=== PATIENT | male | born 1935 | race Caucasian/White ===

== ENCOUNTER 2017-06-14 01:00 | Inpatient (IN) | payer OTHER ==
[2017-06-14] VITALS (21 sets, daily range): BP systolic 86–151; BP diastolic 37–70; PULSE 62–80; RESP 20–31; TEMP 98.4; Ht 167.6 cm; Wt 85.0 kg
[~2017-06-14] VITALS: Ht 167.6 cm; Wt 85.0 kg
[2017-06-14] MEDS ORDERED: CEFEPIME 2GM/50 ML (PMX) 50 ML IVPB STA (01:03)
[2017-06-14] MEDS ORDERED: SOD CHLORIDE 0.9% 1,000 ML IV STA ×2 (01:03)
[2017-06-14] MEDS ORDERED: ALBUTEROL 0.083% (NEB) 2.5 MG/3 ML AMP HHN STA (01:04)
[2017-06-14] MEDS ORDERED: ACETAMINOPHEN 650 MG SUPP PR ONE (01:30)
[2017-06-14] MEDS ORDERED: VANCOMYCIN 1 GM (PMX) 250 ML IVPB ONE (01:30)
[2017-06-14] MEDS ORDERED: IPRATROPIUM (NEB) 0.5 MG/2.5 ML AMP HHN ONE (01:30)
[2017-06-14 01:55] LABS: ABNORMAL IP MESSAGE 1; BASOPHILS % 0.1 % (0.0-2.0); EOSINOPHILS # 0.1 10^3/ul (0.0-0.5); EOSINOPHILS % 0.3 % (0.0-7.0); HEMATOCRIT 32.5 % (42.0-52.0); HEMOGLOBIN 9.6 g/dl (14.0-18.0); LYMPHOCYTES # 0.5 10^3/ul (0.8-2.9); LYMPHOCYTES % 2.7 % (15.0-51.0); MEAN CORPUSCULAR HEMOGLOBIN 26.3 pg (29.0-33.0); MEAN CORPUSCULAR HGB CONC 29.5 g/dl (32.0-37.0); MEAN PLATELET VOLUME 11.3 fl (7.4-10.4); MONOCYTE # 0.8 10^3/ul (0.3-0.9); MONOCYTES % 4.4 % (0.0-11.0); NEUTROPHIL # 16.2 10^3/ul (1.6-7.5); NEUTROPHILS % 91.5 % (39.0-77.0); PLATELET COUNT 177 10^3/UL (140-415); POSITIVE DIFF @See below; RED BLOOD COUNT 3.65 10^6/ul (4.70-6.10); RED CELL DISTRIBUTION WIDTH 16.1 % (11.5-14.5); WHITE BLOOD COUNT 17.7 10^3/ul (4.8-10.8)
[2017-06-14 02:22] LABS: ADD UMIC YES; UR ASCORBIC ACID NEGATIVE (NEGATIVE); UR BACTERIA FEW /HPF (NONE SEEN); UR BILIRUBIN (Dip) NEGATIVE (NEGATIVE); UR BLOOD (Dip) 2+ mg/dL (NEGATIVE); UR CLARITY SLIGHTLY CLOUDY (CLEAR); UR COLOR YELLOW (YELLOW); UR GLUCOSE (Dip) NEGATIVE (NEGATIVE); UR KETONES (Dip) NEGATIVE (NEGATIVE); UR LEUKOCYTE ESTERASE (Dip) 1+ Leu/ul (NEGATIVE); UR MUCUS FEW /HPF (NONE SEEN); UR NITRITE (Dip) NEGATIVE (NEGATIVE); UR RBC 34 /HPF (0-5); UR SPECIFIC GRAVITY (Dip) 1.015 (1.003-1.030); UR TOTAL PROTEIN (Dip) 1+ mg/dl (NEGATIVE); UR UROBILINOGEN (Dip) NEGATIVE (NEGATIVE)
[2017-06-14 02:23] LABS: ALBUMIN 3.2 g/dl (3.3-4.9); ALBUMIN/GLOBULIN RATIO 1.18; BILIRUBIN,INDIRECT 0.7 mg/dl (0-1.1); BILIRUBIN,TOTAL 0.7 mg/dl (0.2-1.3); CREATININE 0.95 mg/dl (0.61-1.24); POTASSIUM 5.3 mmol/L (3.5-5.1); TOTAL PROTEIN 5.9 g/dl (6.1-8.1)
--- NOTE | 2017-06-14 02:29 | RADRPT ---
PROCEDURE: XR Chest. CLINICAL INDICATION: Sepsis. TECHNIQUE: Single frontal chest x-ray. COMPARISON: None. FINDINGS: There is probable surgical defects in the right fifth and sixth ribs. There is complete opacificati on right hemithorax. There are multiple surgical clips right mid lung field. Mediastinum appears s lightly shifted to the right. There is patchy infiltrate in the left lung base. There is small lef t pleural effusion.. There is no pneumothorax. There are degenerative changes of the thoracic spin e.. IMPRESSION: Complete opacification right hemithorax with probable surgical defects in the right fifth and sixth ribs and multiple mid lung field clips compatible with prior pneumonectomy. Patchy left basilar inf iltrate. Small left pleural effusion. RPTAT: HMVK .Augie Wells MD, Date Time Electronically viewed and signed by .Augie Wells MD, on 06/14/2017 02:29 .K/
[2017-06-14 02:40] LABS: AADO2 Arterial 550.8 mmHg (7.0-24.0); Allen Test ACCEPTAB; Arterial Base Excess 2.8 mmol/L (-3.0-3); Arterial COHb 0.3 % (0.0-3.0); Arterial Fraction of Oxyhgb 95.1 % (93.0-99.0); Arterial HCO3 30.4 mmol/L (22.0-26.0); Arterial MetHb 0.7 % (0.0-1.5); Arterial Total Hemglobin 10.3 g/dl (12.0-18.0); Blood Gas IEPAP 15/5; MODE MASK - BIPAP
[2017-06-14] MEDS: SOD CHLORIDE 0.9% 1,000 ML IV SCH ×4 (02:52→20:27)
[2017-06-14] MEDS ORDERED: ONDANSETRON 4 MG INJ IV PRN (03:00)
[2017-06-14] MEDS ORDERED: ALBUTEROL/IPRATROPIUM (NEB) 3 ML AMP NEB PRN (03:00)
[2017-06-14] MEDS ORDERED: ACETAMINOPHEN 325 MG TAB PO PRN (03:00)
[2017-06-14 03:02] LABS: INR 1.09; PARTIAL THROMBOPLASTIN TIME 28.1 Sec (25.0-35.0); PROTIME 14.1 Sec (12.2-14.2); PT RATIO 1.1
[2017-06-14 03:05] LABS: TROPONIN-I 0.571 ng/ml (0.00-0.12)
[2017-06-14] MEDS ORDERED: VANCOMYCIN IV PER PHARMACY XX SCH (03:30)
[2017-06-14] MEDS ORDERED: ASPIRIN 300 MG SUPP PR ONE (03:30)
--- NOTE | 2017-06-14 03:45 | HP ---
Date/Time of Note Date/Time of Note DATE: 06/14/17 TIME: 03:45 Assessment/Plan VTE Prophylaxis VTE Prophylaxis Intervention: heparin Assessment/Plan Chief Complaint/Hosp Course This is a 81-year-old male being admitted to the ICU floor for: #1 acute respiratory failure on BiPAP #2 Severe sepsis #3 NSTEMI type I versus type II #4 healthcare associated pneumonia #5 urinary tract #6 chronic kidney disease #7 history of COPD, #8 history of encephalopathy, #9 history of Parkinson's disease, #10 type 2 diabetes mellitus,, #11 peripheral vascular disease, #12 #12 BPH #13 hypertension #14 ambulatory dysfunction Plan: This patient will be admitted to the ICU for close monitoring. Patient will be maintained on BiPAP for acute respiratory failure and will check serial ABGs. He has been started on broad-spectrum antibiotics for sepsis secondary to underlying suspected healthcare pneumonia and uti. IV fluid hydration. Patient will be started also on heparin drip secondary to positive troponin as this may be an NSTEMI with concern for possible ischemia though this could be type 2 demand. Will obtain a 2D echocardiogram. Will get a cardiology consult. We will continue to trend troponins. Will put patient on insulin sliding scale. Will monitor kidney function and consult nephrology. Will resume patient's home medications as per the clinical course. Further treatment strategy will be implemented as per the clinical course Greater than 60 minutes of critical care time was spent on the care and management of this patient. Problems: HPI/ROS Admit Date/Time Admit Date/Time Hx of Present Illness Chief complaint shortness of breath Patient is a 81-year-old male who presents with shortness of breath. Please note the history and physical exam is limited secondary to the patient's shortness of breath. The patient came from a convalescent home. He had low oxygen saturations. He was brought in by ambulance. He was put on a nonrebreather by paramedics. He was hot to the touch. He does have recent pneumonia with sepsis. He is a [facility] patient. Upon my examination patient was on the BiPAP and he was awake but confused. I was able to get a partial patient history using the ED physician documentation as well as the documentation was provided in the patient's chart. We will need to obtain further medical history from the primary physician. Allergies: NKDA Medications: Aspirin Carbidopa levodopa Cetirizine Docusate Dulcolax Dulera Lasix Glipizide Humulin as needed sliding scale Hydralazine Isosorbide mononitrate Lisinopril Milk of josafat Carreon Terazosin Atorvastatin potassium chloride Fleet enema Flomax Atenolol ROS Subjective hx not possible: pt non-verbal (Currently on BiPAP, lethargic), pt critical PMH/Family/Social Past Medical History Pneumonia, COPD, encephalopathy, Parkinson's disease, type 2 diabetes mellitus, chronic kidney disease, chronic renal failure, peripheral vascular disease, BPH , hypertension, polyp: History of sepsis with septic shock, ambulatory dysfunction Past Surgical History Unable to obtain secondary to patient's medical condition Family History Significant Family History: other (Unable to obtain secondary to patient's medical condition) Social History Unable to obtain secondary to patient's medical condition Smoking Status: Former smoker Exam/Review of Systems Vital Signs Vitals Vital Signs Date Time Temp Pulse Resp B/P Pulse Ox O2 Delivery O2 Flow Rate FiO2 06/14/17 02:39 99.9 80 33 110/48 100 CPAP 06/14/17 01:45 100 06/14/17 01:22 15.0 Exam Exam General: Patient is lying in bed he is arousable but confused he is on BiPAP HEENT: Atraumatic, normocephalic. The pupils are equal, round and reactive. Neck: Supple Lungs: Absent right-sided lung sounds, left coarse breath sounds throughout lung field Heart: Normal S1-S2, Regular rhythm and rate. No overt murmurs appreciated on auscultation Abdomen: Soft , nontender, nondistended , bowel sounds are present. No guarding no rebound tenderness , Extremities: Trace edema of the bilateral lower extremities Neurologic: Patient is arousable, but confused currently on BiPAP, unable to do full neurological exam secondary to patient's medical condition. Additional Comments PROCEDURE: XR Chest. CLINICAL INDICATION: Sepsis. TECHNIQUE: Single frontal chest x-ray. COMPARISON: None. FINDINGS: There is probable surgical defects in the right fifth and sixth ribs. There is complete opacification right hemithorax. There are multiple surgical clips right mid lung field. Mediastinum appears slightly shifted to the right. There is patchy infiltrate in the left lung base. There is small left pleural effusion.. There is no pneumothorax. There are degenerative changes of the thoracic spine.. IMPRESSION: Complete opacification right hemithorax with probable surgical defects in the right fifth and sixth ribs and multiple mid lung field clips compatible with prior pneumonectomy. Patchy left basilar infiltrate. Small left pleural effusion. RPTAT: HMVK .Augie Wells MD, MD Date Time Electronically viewed and signed by .Augie Wells MD, MD on 06/14/2017 02:29 .K/ EKG : Rate/Rhythm: Regular rate and rhythm at a rate of 83 Intervals: Normal As per ED physician documentation Labs Result Diagram: 06/14/1711806/14/17118 Medications Medications Current Medications Sodium Chloride (NS) 1,000 ml @ 75 mls/hr [id number] IV ; Start 06/14/17 at 02:52 ; Status UNV Ondansetron HCl (Zofran Inj) 4 mg Q6H PRN IV NAUSEA AND/OR VOMITING; Start at 03:00; Status UNV Acetaminophen (Tylenol Tab) 650 mg Q6H PRN PO PAIN LEVEL 1-3 OR FEVER; Start at 03:00; Status UNV Pantoprazole 40 mg 40 mg DAILY@06 IV ; Start 06/14/17 at 06:00; Status UNV Cefepime HCl 50 ml @ 100 mls/hr Q8 IVPB ; Start 06/14/17 at 06:00; Status UNV Levofloxacin/ Dextrose (Levaquin 750 Mg/ D5W 150 ml (Pmx)) 150 ml @ 100 mls/hr Q24H IVPB ; Start 06/14/17 at 03:30; Status UNV EDITH CARLSON Jun 14, 2017 03:45
--- NOTE | 2017-06-14 04:03 | ERA ---
ER Documentation Chief Complaint Date/Time DATE: 06/14/17 TIME: 04:02 Chief Complaint LAURENT RA81 from [facility],low O2 sat, 88% on NRM HPI Patient is a 81-year-old male who presents with shortness of breath. Please note the history and physical exam is limited secondary to the patient's shortness of breath. The patient came from a convalescent home. He had low oxygen saturations. He was brought in by ambulance. He was put on a nonrebreather by paramedics. He was hot to the touch. He does have recent pneumonia with sepsis. He is a [facility] patient. Upon review of old medical records this is the patient's first visit to the emergency department. ROS All systems reviewed and are negative except as per history of present illness. Allergies Allergies: Coded Allergies: No Known Allergy (Unverified , 06/14/17) PMhx/Soc History of Surgery: Yes (R lung lobectomy ) Anesthesia Reaction: No Hx Respiratory Disorders: Yes (PNA, COPD, Lung CA) Hx Miscellaneous Medical Probl: Yes (Parkinson's, DM II, Encephalopathy, BPH, PVD, colon polyp) Hx Alcohol Use: No Hx Substance Use: No Hx Tobacco Use: Yes Smoking Status: Former smoker FmHx Unable to obtain Physical Exam Vitals Vital Signs Date Time Temp Pulse Resp B/P Pulse Ox O2 Delivery O2 Flow Rate FiO2 06/14/17 02:39 99.9 80 33 110/48 100 CPAP 06/14/17 01:45 85 93 100 06/14/17 01:22 88 34 95 Non Rebreather Mask 15.0 06/14/17 01:16 Non Rebreather 15 06/14/17 01:04 102.0 85 33 127/49 97 Physical Exam Const: Severe distress Head: Atraumatic Eyes: Normal Conjunctiva ENT: Normal External Ears, Nose and Mouth. Neck: Full range of motion..~ No meningismus. Resp: Absent right-sided breath sounds with rhonchorous left-sided breath sounds Cardio: Regular rate and rhythm, no murmurs Abd: Soft, non tender, non distended. Normal bowel sounds Skin: No petechiae or rashes Back: No midline or flank tenderness Ext: No cyanosis, or edema Neur: Awake but confused Result Diagram: 06/14/1711806/14/17118 Results 24 hrs Laboratory Tests Test 06/14/17 01:19 06/14/17 01:52 06/14/17 02:03 White Blood Count 17.710^3/ul Red Blood Count 3.6510^6/ul Hemoglobin 9.6g/dl Hematocrit 32.5% Mean Corpuscular Volume 89.0fl Mean Corpuscular Hemoglobin 26.3pg Mean Corpuscular Hemoglobin Concent 29.5g/dl Red Cell Distribution Width 16.1% Platelet Count 48415^3/UL Mean Platelet Volume 11.3fl Neutrophils % 91.5% Lymphocytes % 2.7% Monocytes % 4.4% Eosinophils % 0.3% Basophils % 0.1% Nucleated Red Blood Cells % 0.0/100WBC Neutrophils # 16.210^3/ul Lymphocytes # 0.510^3/ul Monocytes # 0.810^3/ul Eosinophils # 0.110^3/ul Basophils # 0.010^3/ul Nucleated Red Blood Cells # 0.010^3/ul Prothrombin Time 14.1Sec Prothrombin Time Ratio 1.1 INR International Normalized Ratio 1.09 Activated Partial Thromboplast Time 28.1Sec Sodium Level 144mmol/L Potassium Level 5.3mmol/L Chloride Level 95mmol/L Carbon Dioxide Level 40mmol/L Anion Gap 14 Blood Urea Nitrogen 34mg/dl Creatinine 0.95mg/dl Glucose Level 159mg/dl Lactic Acid Level 0.8mmol/L Calcium Level 9.0mg/dl Total Bilirubin 0.7mg/dl Direct Bilirubin 0.00mg/dl Indirect Bilirubin 0.7mg/dl Aspartate Amino Transf (AST/SGOT) 16IU/L Alanine Aminotransferase (ALT/SGPT) 25IU/L Alkaline Phosphatase 57IU/L Troponin I 0.571ng/ml Total Protein 5.9g/dl Albumin 3.2g/dl Globulin 2.70g/dl Albumin/Globulin Ratio 1.18 Urine Color YELLOW Urine Clarity SLIGHTLY CLOUDY Urine pH 5.0 Urine Specific [place] 1.015 Urine Ketones NEGATIVEmg/dL Urine Nitrite NEGATIVEmg/dL Urine Bilirubin NEGATIVEmg/dL Urine Urobilinogen NEGATIVEmg/dL Urine Leukocyte Esterase 1+Kristian/ul Urine Microscopic RBC 34/HPF Urine Microscopic WBC 15/HPF Urine Bacteria FEW/HPF Urine Mucus FEW/HPF Urine Hemoglobin 2+mg/dL Urine Glucose NEGATIVEmg/dL Urine Total Protein 1+mg/dl Blood Gas Specimen Source Blood arterial Arterial Blood Date Drawn 06/14/2017 2:27:06 AM Arterial Blood pH (Temp corrected) 7.299 Arterial Blood pCO2 (Temp correct) 63.3mmhg Arterial Blood pO2 (Temp corrected) 98.9mmHG Arterial Blood HCO3 30.4mmol/L Arterial Blood Base Excess 2.8mmol/L Arterial Blood Oxygen Saturation 96.1mmHG Slim Test ACCEPTAB Arterial Blood Gas Puncture Site Right Radial Arterial Blood Carboxyhemoglobin 0.3% Arterial Blood Methemoglobin 0.7% Blood Gas A-a O2 Differential 550.8mmHg Oxyhemoglobin Percent 95.1% Total Hemoglobin 10.3g/dl Blood Gas Temperature 37.0C Blood Gas Respiration Rate 14.0 Blood Gas Actual Respiration Rate 30 Blood Gas Modality MASK - BIPAP FiO2 100.0% Blood Gas Inspiratory Time 0.8 Blood Gas IPAP/EPAP Ratio 15/5 Blood Gas Critical Value Read Back Ros SALDANA MD Blood Gas Notified Whom AA Blood Gas Notified Time 06/14/2017 2:40:10 AM Current Medications Medications (Trade) Dose Ordered Sig/Shad Route PRN Reason Start Time Stop Time Status Last Admin Dose Admin Cefepime HCl 50 ml @ 100 mls/hr ONCE STAT IVPB 06/14/17 01:03 06/14/17 01:35 DC 06/14/17 01:45 Vancomycin HCl 250 ml @ 125 mls/hr ONCE ONCE IVPB 06/14/17 01:30 06/14/17 03:29 DC 06/14/17 02:27 Sodium Chloride 1,000 ml @ 1,000 mls/hr Q1H STAT IV 06/14/17 01:03 06/14/17 02:02 DC 06/14/17 01:03 Sodium Chloride (NS) 1,000 ml @ 1,000 mls/hr Q1H STAT IV 06/14/17 01:03 06/14/17 02:02 DC 06/14/17 01:03 Acetaminophen (Tylenol Supp) 650 mg ONCE ONCE HI 06/14/17 01:30 06/14/17 01:31 DC 06/14/17 02:28 Albuterol (Proventil 0.083% (Neb)) 5 mg ONCE STAT HHN 06/14/17 01:04 06/14/17 01:05 DC 06/14/17 01:22 Ipratropium [place] 0.5 mg 0.5 mg ONCE ONCE HHN 06/14/17 01:30 06/14/17 01:31 DC 06/14/17 01:22 Sodium Chloride (NS) 1,000 ml @ 75 mls/hr [id number] IV 06/14/17 02:52 UNV Ondansetron HCl (Zofran Inj) 4 mg Q6H PRN IV NAUSEA AND/OR VOMITING 06/14/17 03:00 UNV Albuterol/ Ipratropium (Duoneb) 3 ml Q4H RESP THERAPY PRN NEB SHORTNESS OF BREATH 06/14/17 03:00 UNV Acetaminophen (Tylenol Tab) 650 mg Q6H PRN PO PAIN LEVEL 1-3 OR FEVER 06/14/17 03:00 UNV Pantoprazole (Protonix Iv) 40 mg DAILY@06 IV 06/14/17 06:00 UNV Vancomycin HCl VANCOMYCIN PER PHARMACY PER PROTOCOL XX 06/14/17 03:30 UNV Cefepime HCl 50 ml @ 100 mls/hr Q8 IVPB 06/14/17 06:00 UNV Levofloxacin/ Dextrose (Levaquin 750 Mg/ D5W 150 ml (Pmx)) 150 ml @ 100 mls/hr Q24H IVPB 06/14/17 03:30 UNV Aspirin (Aspirin) 300 mg ONCE ONCE HI 06/14/17 03:30 06/14/17 03:31 DC Procedures/MDM EKG read by me: Rate/Rhythm: Regular rate and rhythm at a rate of 83 Intervals: Normal Impression: No evidence of ischemia or arrhythmia Chest X-ray 1V Interpreted by me: Soft Tissue: No acute abnormalities Bones: No acute abnormalities Mediastinum/Cardiac Silhouette/Lungs: Right-sided opacification and previous surgery with left-sided pneumonia Admit MDM: Patient's infectious symptoms have not stabilized and the patient is at risk of rapid decompensation. The patient will be admitted for careful hydration, antibiotic therapy, and infectious source control. Severe Sepsis criteria: Infectious source: Pneumonia End organ damage indicated by: Respiratory failure Sepsis Management: Time of recognition of sepsis: Upon arrival Within 3 hours of recognition: Blood cultures x 2 before broad-spectrum antibiotics: Yes 30 ml/kg NS bolus Completed Initial lactate 0.8 Repeat lactate pending Time of recognition of septic shock: No septic shock Septic Shock Assessment: Any lactic acid > 4.0 No Persistent hypotension (SBP < 90 or 40 mmHg drop, MAP < 65) despite 30 mL/kg IV fluid bolus No Volume Re-assessment for Septic Shock (post 30 ml/kg bolus): No septic shock at this time Persistent Hypotension Treatment: Comfort care No Central line Not Required Vasopressor started Not required I considered further perfusion assessment with CVP measurement, SCVO2, bedside ultrasound volume assessment, passive leg raise, trial of further fluid bolus. And proceeded with 30 ml/kg fluid bolus of NSS, broad spectrum antibiotics, and admission. The patient was given aspirin per rectum for a positive troponin. This is likely from sepsis. Accepting Care Team Current data and ongoing care discussed. Admitting Physician: Dr. Falcon from the panel team to the ICU Core Extruder(s): None Outstanding Data: Culture results and repeat lactic acid Critical Care: Critical care time 35 minutes excluding all billable procedures Emergent fluid management while maintaining close respiratory support. Provision of immediate and broad-spectrum antibiotic therapy. Simultaneous assessment for possible sources in order to direct targeted therapy. Consideration for invasive and chemical support to prevent cardiopulmonary collapse. Departure Diagnosis: Primary Impression: Severe sepsis Additional Impressions: Shortness of breath Respiratory failure Qualified Code: J96.01 - Acute respiratory failure with hypoxia and hypercapnia Pneumonia Qualified Code: J18.9 - Pneumonia due to infectious organism, unspecified laterality, unspecified part of lung NSTEMI (non-ST elevated myocardial infarction) Condition: Critical ARCHIE SALDANA MD Jun 14, 2017 04:03
[2017-06-14] MEDS: LEVOFLOXACIN 750MG/D5W (PMX) 150 ML IVPB SCH (04:26)
[2017-06-14 04:40] LABS: AADO2 Arterial 539.5 mmHg (7.0-24.0); Arterial Base Excess 5.5 mmol/L (-3.0-3); Arterial COHb 0.3 % (0.0-3.0); Arterial Fraction of Oxyhgb 95.8 % (93.0-99.0); Arterial HCO3 33.7 mmol/L (22.0-26.0); Arterial MetHb 0.6 % (0.0-1.5); Arterial Total Hemglobin 10.8 g/dl (12.0-18.0); Blood Gas IEPAP 20/5; MODE MASK - BIPAP
[2017-06-14 06:11] LABS: ALBUMIN/GLOBULIN RATIO 1.2; BILIRUBIN,INDIRECT 0.7 mg/dl (0-1.1); BILIRUBIN,TOTAL 0.7 mg/dl (0.2-1.3); CALCIUM 8.4 mg/dl (8.4-10.2); MAGNESIUM 2.2 mg/dl (1.7-2.5); POTASSIUM 5.5 mmol/L (3.5-5.1); TOTAL PROTEIN 5.5 g/dl (6.1-8.1)
[2017-06-14] MEDS: PANTOPRAZOLE 40 MG INJ IV SCH (06:30)
[2017-06-14] MEDS ORDERED: HEPARIN 1000 UNITS/ML 10 ML INJ IV PRN (07:30)
[2017-06-14] MEDS ORDERED: HEPARIN 25000 UNITS/250 ML 250 ML IV SCH (07:30)
[2017-06-14] MEDS ORDERED: HEPARIN 1000 UNITS/ML 10 ML INJ IV ONE (07:30)
[2017-06-14 07:56] LABS: AADO2 Arterial 500.1 mmHg (7.0-24.0); Allen Test ACCEPTAB; Arterial Base Excess 2.3 mmol/L (-3.0-3); Arterial COHb 0.3 % (0.0-3.0); Arterial Fraction of Oxyhgb 97.4 % (93.0-99.0); Arterial HCO3 29.5 mmol/L (22.0-26.0); Arterial MetHb 0.7 % (0.0-1.5); Arterial Total Hemglobin 10.5 g/dl (12.0-18.0); Blood Gas IEPAP 20/5; Blood Gas PS 15; MODE MASK - BIPAP
[2017-06-14] MEDS: CEFEPIME 2GM/50 ML (PMX) 50 ML IVPB SCH ×3 (08:24→23:29)
[2017-06-14 09:10] LABS: ABNORMAL IP MESSAGE 1; HEMATOCRIT 31.3 % (42.0-52.0); HEMOGLOBIN 9.5 g/dl (14.0-18.0); MEAN CORPUSCULAR HEMOGLOBIN 26.9 pg (29.0-33.0); MEAN CORPUSCULAR HGB CONC 30.4 g/dl (32.0-37.0); MEAN CORPUSCULAR VOLUME 88.7 fl (82.0-101.0); MEAN PLATELET VOLUME 12.2 fl (7.4-10.4); POSITIVE DIFF @See below; RED BLOOD COUNT 3.53 10^6/ul (4.70-6.10); WHITE BLOOD COUNT 21.3 10^3/ul (4.8-10.8)
[2017-06-14 09:12] LABS: PLATELET COUNT 105 10^3/UL (140-415)
[2017-06-14 09:16] LABS: INR 1.18; PROTIME 15.1 Sec (12.2-14.2); PT RATIO 1.2
[2017-06-14 09:17] LABS: PARTIAL THROMBOPLASTIN TIME 26.2 Sec (25.0-35.0)
[2017-06-14 10:12] LABS: ANISOCYTOSIS 1+ (0-0); MICROCYTOSIS 1+ (0-0); MONOCYTES % (M) 6 % (0-11); PLATELET ESTIMATE DECREASED; POIKILOCYTOSIS 3+ (0-0); POLYCHROMASIA 3+ (0-0)
--- NOTE | 2017-06-14 10:13 | RADRPT ---
PROCEDURE: CT Chest without contrast. CLINICAL INDICATION: Abnormal chest x-ray. TECHNIQUE: Volumetrically acquired images of the thorax without intravenous contrast were reformat kera in the axial, sagittal, and coronal planes. Radiation dose: CTDIvol (mGy) = 14.4; total DLP mGy-cm = 577. One or more of the following radiation dose techniques were used: -Automated exposure control. -Adjust of the mA and/or kV according to patient size. -Use of iterative reconstruction technique. COMPARISON: None. FINDINGS: There is complete consolidation of the right lung with air bronchograms, which is poorly evaluated w ithout intravenous contrast. There are multiple enlarged multi-compartmental mediastinal lymph nodes. There are postsurgical changes identified in the right hilar region, likely sequelae of prior lobect marvel/lung resection. There is associated generalized volume loss of the right hemithorax with elevat ion of the right hemidiaphragm. There is an ill-defined soft tissue mass in the right supraclavicular region, measuring approximatel y 4.4 cm in craniocaudal length. Expiratory images demonstrate air trapping identified in the left upper lower lobes. There is also a concomitant interlobular septal thickening, consistent with hydrostatic interstitial edema. There are linear bands of scarring and/or atelectasis identified in the left upper and lower lobes. There are bilateral calcified pleural plaques with pleural thickening. No pleural effusions. There is cardiomegaly without pericardial effusion. 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 There are three-vessel coronary calcifications. Layering stones are noted within the gallbladder. IMPRESSION: Large consolidation and/or mass occupying the right hemithorax that is poorly evaluated without intr avenous contrast. Underlying malignancy is suspected given the prominent multi compartmental medias tinal lymphadenopathy and large ill-defined supraclavicular maurizio mass. The contralateral, non-consolidated left lung demonstrates obliterative air trapping, consistent wit h nonspecific large and small airways disease. There is also interlobular septal thickening consist ent with hydrostatic interstitial edema with prominent bands of scarring and/or atelectasis. Cardiomegaly with advanced cardiovascular calcifications. Bilateral pleural thickening with calcified pleural plaque, which may reflect prior asbestos exposur e. RPTAT: EE .Jonathan Rojas MD, MD Date Time Electronically viewed and signed by .Jonathan Rojas MD, MD on 06/14/2017 10:18 .C/
[2017-06-14] MEDS ORDERED: HYDR-3671 PO (10:47)
[2017-06-14] MEDS ORDERED: MOME13HF INHALATION (10:47)
[2017-06-14] MEDS ORDERED: ATOR40TA68 PO (10:48)
[2017-06-14] MEDS ORDERED: CARB1TAB42 PO (10:48)
[2017-06-14] MEDS ORDERED: LISI40TA9 PO (10:48)
[2017-06-14] MEDS ORDERED: FURO40TA4 PO (10:50)
[2017-06-14] MEDS ORDERED: ATEN50TA PO (10:53)
[2017-06-14] MEDS ORDERED: ISOS30TA5 PO (10:54)
[2017-06-14] MEDS ORDERED: POTA8CAP PO (10:54)
[2017-06-14] MEDS ORDERED: GLIP5TAB13 PO (10:54)
[2017-06-14] MEDS ORDERED: TERA10CA42 PO (10:55)
[2017-06-14 11:54] LABS: ALBUMIN/GLOBULIN RATIO 1.25; BILIRUBIN,INDIRECT 0.9 mg/dl (0-1.1); BILIRUBIN,TOTAL 0.9 mg/dl (0.2-1.3); CREATININE 0.85 mg/dl (0.61-1.24); POTASSIUM 5.8 mmol/L (3.5-5.1); TOTAL PROTEIN 5.4 g/dl (6.1-8.1)
--- NOTE | 2017-06-14 13:12 | CONS ---
Date/Time of Note Date/Time of Note DATE: 06/14/17 TIME: 13:05 Assessment/Plan Assessment/Plan Additional Assessment/Plan Respiratory failure Sepsis Possible pneumonia with lung mass COPD on oxygen Encephalopathy -Patient with mildly elevated first set of troponins. Would follow serial cardiac enzymes, check echocardiogram, telemetry monitoring, aspirin and statin therapy if no contraindication. Consultation Date/Type/Reason Admit Date/Time Type of Consultation: cv Reason for Consultation Shortness of breath and elevated troponin Hx of Present Illness This is an 81-year-old male with past medical history of COPD on oxygen, lung surgery over 20 years ago, hypertension who was admitted to [facility] approximately 2-3 weeks ago as per the son at bedside. At that time, patient with severe pneumonia requiring intubation. Prior to this, patient was ambulating with oxygen supplementation and was coherent. He was treated and extubated and transferred to rehab. As per the son, over the past few days, patient with increased fatigue, fevers and chills, cough and worsening shortness of breath. Symptoms worsened yesterday and was brought to the emergency room. Patient unable to give history at the current time and is mention history obtained from the patient son, medical chart and transfer records. 12 point review of systems performed with all pertinent positives and negatives mentioned above Past Medical History COPD Hypertension Past Surgical History Lung surgery Family History Significant Family History: no pertinent family hx Social History Smoking Status: Former smoker Other Social History From rehab facility Exam/Review of Systems Vital Signs Vitals Vital Signs Date Time Temp Pulse Resp B/P Pulse Ox O2 Delivery O2 Flow Rate FiO2 06/14/17 11:30 98.4 61 16 116/44 95 CPAP 15.0 06/14/17 11:29 35 Exam On BiPAP, appears dyspneic, not responding to verbal stimuli Head: normocephalic Respiratory: other (Coarse breath sounds, decreased breath sounds right mid lung base, no wheezing) Cardiovascular: other (S1-S2 heard), regular rate and rhythm Gastrointestinal: bowel sounds, non-tender, other (No grimacing with palpation) , soft Extremities: edema Results Result Diagram: 06/14/17 0818 06/14/17 1048 Results 24 hrs Laboratory Tests Test 06/14/17 01:19 06/14/17 01:52 06/14/17 02:03 06/14/17 04:16 White Blood Count 17.7 H Red Blood Count 3.65 L Hemoglobin 9.6 L Hematocrit 32.5 L Mean Corpuscular Volume 89.0 Mean Corpuscular Hemoglobin 26.3 L Mean Corpuscular Hemoglobin Concent 29.5 L Red Cell Distribution Width 16.1 H Platelet Count 177 Mean Platelet Volume 11.3 H Neutrophils % 91.5 H Lymphocytes % 2.7 L Monocytes % 4.4 Eosinophils % 0.3 Basophils % 0.1 Nucleated Red Blood Cells % 0.0 Neutrophils # 16.2 H Lymphocytes # 0.5 L Monocytes # 0.8 Eosinophils # 0.1 Basophils # 0.0 Nucleated Red Blood Cells # 0.0 Prothrombin Time 14.1 Prothrombin Time Ratio 1.1 INR International Normalized Ratio 1.09 Activated Partial Thromboplast Time 28.1 Sodium Level 144 Potassium Level 5.3 H Chloride Level 95 L Carbon Dioxide Level 40 H Anion Gap 14 Blood Urea Nitrogen 34 H Creatinine 0.95 Glucose Level 159 Lactic Acid Level 0.8 Calcium Level 9.0 Total Bilirubin 0.7 Direct Bilirubin 0.00 Indirect Bilirubin 0.7 Aspartate Amino Transf (AST/SGOT) 16 Alanine Aminotransferase (ALT/SGPT) 25 Alkaline Phosphatase 57 Troponin I 0.571 *H Total Protein 5.9 L Albumin 3.2 L Globulin 2.70 Albumin/Globulin Ratio 1.18 Urine Color YELLOW Urine Clarity SLIGHTLY CLOUDY A Urine pH 5.0 Urine Specific [place] 1.015 Urine Ketones NEGATIVE Urine Nitrite NEGATIVE Urine Bilirubin NEGATIVE Urine Urobilinogen NEGATIVE Urine Leukocyte Esterase 1+ H Urine Microscopic RBC 34 H Urine Microscopic WBC 15 H Urine Bacteria FEW A Urine Mucus FEW A Urine Hemoglobin 2+ H Urine Glucose NEGATIVE Urine Total Protein 1+ H Blood Gas Specimen Source Blood arterial Blood arterial Arterial Blood Date Drawn 06/14/2017 2:27:06 AM 06/14/2017 4:27:38 AM Arterial Blood pH (Temp corrected) 7.299 *L 7.297 *L Arterial Blood pCO2 (Temp correct) 63.3 H 70.5 H Arterial Blood pO2 (Temp corrected) 98.9 H 103.0 H Arterial Blood HCO3 30.4 H 33.7 H Arterial Blood Base Excess 2.8 5.5 H Arterial Blood Oxygen Saturation 96.1 96.7 Slim Test ACCEPTAB N/A Arterial Blood Gas Puncture Site Right Radial Right Brachial Arterial Blood Carboxyhemoglobin 0.3 0.3 Arterial Blood Methemoglobin 0.7 0.6 Blood Gas A-a O2 Differential 550.8 H 539.5 H Oxyhemoglobin Percent 95.1 95.8 Total Hemoglobin 10.3 L 10.8 L Blood Gas Temperature 37.0 37.0 Blood Gas Respiration Rate 14.0 20.0 Blood Gas Actual Respiration Rate 30 26 Blood Gas Modality MASK - BIPAP MASK - BIPAP FiO2 100.0 100.0 Blood Gas Inspiratory Time 0.8 0.8 Blood Gas IPAP/EPAP Ratio 15/ 20 Blood Gas Critical Value Read Back Ros SALDANA MD, B MD Blood Gas Notified Whom AA AA Blood Gas Notified Time 06/14/2017 2:40:10 AM 06/14/2017 4:40:32 AM Test 06/14/17 04:42 06/14/17 07:44 06/14/17 08:18 06/14/17 10:48 Sodium Level 145 H 143 Potassium Level 5.5 H 5.8 H Chloride Level 99 101 Carbon Dioxide Level 36 H 32 H Anion Gap 16 16 Blood Urea Nitrogen 32 H 31 H Creatinine 1.00 0.85 Glucose Level 202 224 H Lactic Acid Level 1.5 1.4 1.6 Calcium Level 8.4 8.0 L Phosphorus Level 5.0 H Magnesium Level 2.2 Total Bilirubin 0.7 0.9 Direct Bilirubin 0.00 0.00 Indirect Bilirubin 0.7 0.9 Aspartate Amino Transf (AST/SGOT) 16 18 Alanine Aminotransferase (ALT/SGPT) 26 31 Alkaline Phosphatase 51 44 Lactate Dehydrogenase 572 Total Protein 5.5 L 5.4 L Albumin 3.0 L 3.0 L Globulin 2.50 2.40 Albumin/Globulin Ratio 1.20 1.25 Blood Gas Specimen Source Blood arterial Arterial Blood Date Drawn 06/14/2017 7:45:35 AM Arterial Blood pH (Temp corrected) 7.313 L Arterial Blood pCO2 (Temp correct) 59.5 H Arterial Blood pO2 (Temp corrected) 153.4 H Arterial Blood HCO3 29.5 H Arterial Blood Base Excess 2.3 Arterial Blood Oxygen Saturation 98.4 Slim Test ACCEPTAB Arterial Blood Gas Puncture Site Right Radial Arterial Blood Carboxyhemoglobin 0.3 Arterial Blood Methemoglobin 0.7 Blood Gas A-a O2 Differential 500.1 H Oxyhemoglobin Percent 97.4 Total Hemoglobin 10.5 L Blood Gas Temperature 37.0 Blood Gas Respiration Rate 30.0 Blood Gas Actual Respiration Rate 33 Blood Gas Modality MASK - BIPAP FiO2 100.0 Blood Gas Pressure Support 15 Blood Gas IPAP/EPAP Ratio 20/5 Blood Gas Notified Whom Denny Blood Gas Notified Time 06/14/2017 7:56:19 AM White Blood Count 21.3 #H Red Blood Count 3.53 L Hemoglobin 9.5 L Hematocrit 31.3 L Mean Corpuscular Volume 88.7 Mean Corpuscular Hemoglobin 26.9 L Mean Corpuscular Hemoglobin Concent 30.4 L Red Cell Distribution Width 16.0 H Platelet Count 105 #L Mean Platelet Volume 12.2 H Neutrophils % Segmented Neutrophils % (Manual) 82 H Band Neutrophils % (Manual) 5 H Lymphocytes % Lymphocytes % (Manual) 7 L Monocytes % Monocytes % (Manual) 6 Eosinophils % Basophils % Nucleated Red Blood Cells % 0.0 Neutrophils # Neutrophils # (Manual) 17.7 H Band Neutrophils # 1.0 H Absolute Lymphocytes (Manual) 1.4 Lymphocytes # Monocytes # Absolute Monocytes (Manual) 1.2 H Eosinophils # Basophils # Nucleated Red Blood Cells # Smudge Cells % 1 H Platelet Estimate DECREASED Polychromasia 3+ Poikilocytosis 3+ Anisocytosis 1+ Microcytosis 1+ Prothrombin Time 15.1 H Prothrombin Time Ratio 1.2 INR International Normalized Ratio 1.18 Activated Partial Thromboplast Time 26.2 Medications Medications Current Medications Sodium Chloride (NS) 1,000 ml @ 75 mls/hr [id number] IV Last administered on 06/14 02:52; Admin Dose 75 MLS/HR; Start 06/14/17 at 02:52 Ondansetron HCl (Zofran Inj) 4 mg Q6H PRN IV NAUSEA AND/OR VOMITING; Start at 03:00 Acetaminophen (Tylenol Tab) 650 mg Q6H PRN PO PAIN LEVEL 1-3 OR FEVER; Start at 03:00 Pantoprazole 40 mg 40 mg DAILY@06 IV Last administered on 06/14/17 06:30; Admin Dose 40 MG; Start 06/14/17 at 06:00 Cefepime HCl 50 ml @ 100 mls/hr Q8 IVPB Last administered on 06/14/17 08:24; Admin Dose 100 MLS/HR; Start 06/14/17 at 07:30 Levofloxacin/ Dextrose 150 ml @ 100 mls/hr Q24H IVPB Last administered on 06/14t 04:26; Admin Dose 100 MLS/HR; Start 06/14/17 at 03:30 Sodium Chloride 1,000 ml @ 80 mls/hr [id number] IV ; Start 06/14/17 at 09:00 Vancomycin HCl/ Sodium Chloride (Vancocin/NS) 250 ml @ 83.333 mls/ hr Q24H IVPB ; Start 06/14/17 at 20:00 Procedures Procedures ECG demonstrates sinus rhythm 81 bpm, inferior and septal Q waves, nonspecific ST abnormalities Augie Encarnacion DO Jun 14, 2017 13:12
[2017-06-14 13:53] LABS: CK-MB 2.4 ng/ml (0.0-2.4); TROPONIN-I 0.323 ng/ml (0.00-0.12)
--- NOTE | 2017-06-14 14:26 | CONS ---
Date/Time of Note Date/Time of Note DATE: 06/14/17 TIME: 14:22 Assessment/Plan Assessment/Plan Additional Assessment/Plan Chest x-ray was reviewed from today which is showing extensive infiltrate involving the right lung. CT chest also was reviewed which is showing extensive consolidation and volume loss involving the right lung. Assessment recommendations; next 1. Patient admitted with respiratory failure due to extensive right-sided pneumonia. 2. Remote history of right lung cancer, status post lobar resection. 3. Parkinson's disease. Continue current treatment. Add vancomycin. Obtain follow-up chest x-ray tomorrow morning. The patient may need to have a bronchoscopy performed. And will likely need to be intubated for the procedure. I did have a detailed discussion patient's as well as patient's daughter at bedside and answered all their questions. Consultation Date/Type/Reason Admit Date/Time Date of Consultation: Jun 14, 2017 Type of Consultation: Pulmonary critical care Reason for Consultation Pulmonary consultation requested for evaluation of pneumonia. History of presenting any; patient is a 81-year-old white male who was transferred to the hospital from retirement for evaluation of shortness of breath. Upon evaluation a chest x-ray was done which showed extensive infiltrate involving the right lung. Patient also was in hypercapnic respiratory failure but has responded well after being put on BiPAP. The patient is not a good historian most of the history was obtained from medical records as well as from patient's daughter and who were present in the room. Exam the patient has been having pneumonia for the last several weeks and has been treated at various hospitals as well as being transferred to various nursing homes for continued treatment. Patient does have history of Parkinson's disease. As well as history of lung malignancy involving the right lung and he status post lobar resection. Past medical history; 1. Patient with history of right lung cancer status post thoracotomy in lobar resection. 2. Parkinson's disease. 3. Possibly COPD. Medications; reviewed. Allergies; none. Social history; patient does have history of heavy smoking. Family history; he is he has 2 children. Occupational history; patient was a printer. Review systems; currently unable to be obtained. General exam; elderly male, on BiPAP. Currently in no distress. Social History Smoking Status: Former smoker Exam/Review of Systems Vital Signs Vitals Vital Signs Date Time Temp Pulse Resp B/P Pulse Ox O2 Delivery O2 Flow Rate FiO2 7/31/17 14:00 98.8 76 24 120/49 100 BIPAP 06/14/17 12:30 15.0 06/14/17 11:29 35 Exam HEENT exam; supple neck, no JVD. No lymphadenopathy. Midline trachea. Patient on full face BiPAP. Chest exam; diminished breath sounds bilaterally. S1-S2 audible, no murmurs. There is a well-healed right thoracotomy scar. Abdomen exam; soft, no organomegaly. Bowel sounds audible. Extremity exam; no peripheral edema. Pulses 1+ bilaterally. 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 Results Result Diagram: 06/14/17 0818 06/14/17 1048 Results 24 hrs Laboratory Tests Test 06/14/17 01:19 06/14/17 01:52 06/14/17 02:03 06/14/17 04:16 White Blood Count 17.7 H Red Blood Count 3.65 L Hemoglobin 9.6 L Hematocrit 32.5 L Mean Corpuscular Volume 89.0 Mean Corpuscular Hemoglobin 26.3 L Mean Corpuscular Hemoglobin Concent 29.5 L Red Cell Distribution Width 16.1 H Platelet Count 177 Mean Platelet Volume 11.3 H Neutrophils % 91.5 H Lymphocytes % 2.7 L Monocytes % 4.4 Eosinophils % 0.3 Basophils % 0.1 Nucleated Red Blood Cells % 0.0 Neutrophils # 16.2 H Lymphocytes # 0.5 L Monocytes # 0.8 Eosinophils # 0.1 Basophils # 0.0 Nucleated Red Blood Cells # 0.0 Prothrombin Time 14.1 Prothrombin Time Ratio 1.1 INR International Normalized Ratio 1.09 Activated Partial Thromboplast Time 28.1 Sodium Level 144 Potassium Level 5.3 H Chloride Level 95 L Carbon Dioxide Level 40 H Anion Gap 14 Blood Urea Nitrogen 34 H Creatinine 0.95 Glucose Level 159 Lactic Acid Level 0.8 Calcium Level 9.0 Total Bilirubin 0.7 Direct Bilirubin 0.00 Indirect Bilirubin 0.7 Aspartate Amino Transf (AST/SGOT) 16 Alanine Aminotransferase (ALT/SGPT) 25 Alkaline Phosphatase 57 Troponin I 0.571 *H Total Protein 5.9 L Albumin 3.2 L Globulin 2.70 Albumin/Globulin Ratio 1.18 Urine Color YELLOW Urine Clarity SLIGHTLY CLOUDY A Urine pH 5.0 Urine Specific [place] 1.015 Urine Ketones NEGATIVE Urine Nitrite NEGATIVE Urine Bilirubin NEGATIVE Urine Urobilinogen NEGATIVE Urine Leukocyte Esterase 1+ H Urine Microscopic RBC 34 H Urine Microscopic WBC 15 H Urine Bacteria FEW A Urine Mucus FEW A Urine Hemoglobin 2+ H Urine Glucose NEGATIVE Urine Total Protein 1+ H Blood Gas Specimen Source Blood arterial Blood arterial Arterial Blood Date Drawn 06/14/2017 2:27:06 AM 06/14/2017 4:27:38 AM Arterial Blood pH (Temp corrected) 7.299 *L 7.297 *L Arterial Blood pCO2 (Temp correct) 63.3 H 70.5 H Arterial Blood pO2 (Temp corrected) 98.9 H 103.0 H Arterial Blood HCO3 30.4 H 33.7 H Arterial Blood Base Excess 2.8 5.5 H Arterial Blood Oxygen Saturation 96.1 96.7 Slim Test ACCEPTAB N/A Arterial Blood Gas Puncture Site Right Radial Right Brachial Arterial Blood Carboxyhemoglobin 0.3 0.3 Arterial Blood Methemoglobin 0.7 0.6 Blood Gas A-a O2 Differential 550.8 H 539.5 H Oxyhemoglobin Percent 95.1 95.8 Total Hemoglobin 10.3 L 10.8 L Blood Gas Temperature 37.0 37.0 Blood Gas Respiration Rate 14.0 20.0 Blood Gas Actual Respiration Rate 30 26 Blood Gas Modality MASK - BIPAP MASK - BIPAP FiO2 100.0 100.0 Blood Gas Inspiratory Time 0.8 0.8 Blood Gas IPAP/EPAP Ratio 15/5 20/5 Blood Gas Critical Value Read Back Ros SALDANA MD, B MD Blood Gas Notified Whom AA AA Blood Gas Notified Time 06/14/2017 2:40:10 AM 06/14/2017 4:40:32 AM Test 06/14/17 04:42 06/14/17 07:44 06/14/17 08:18 06/14/17 10:48 Sodium Level 145 H 143 Potassium Level 5.5 H 5.8 H Chloride Level 99 101 Carbon Dioxide Level 36 H 32 H Anion Gap 16 16 Blood Urea Nitrogen 32 H 31 H Creatinine 1.00 0.85 Glucose Level 202 224 H Lactic Acid Level 1.5 1.4 1.6 Calcium Level 8.4 8.0 L Phosphorus Level 5.0 H Magnesium Level 2.2 Total Bilirubin 0.7 0.9 Direct Bilirubin 0.00 0.00 Indirect Bilirubin 0.7 0.9 Aspartate Amino Transf (AST/SGOT) 16 18 Alanine Aminotransferase (ALT/SGPT) 26 31 Alkaline Phosphatase 51 44 Lactate Dehydrogenase 572 Total Protein 5.5 L 5.4 L Albumin 3.0 L 3.0 L Globulin 2.50 2.40 Albumin/Globulin Ratio 1.20 1.25 Blood Gas Specimen Source Blood arterial Arterial Blood Date Drawn 06/14/2017 7:45:35 AM Arterial Blood pH (Temp corrected) 7.313 L Arterial Blood pCO2 (Temp correct) 59.5 H Arterial Blood pO2 (Temp corrected) 153.4 H Arterial Blood HCO3 29.5 H Arterial Blood Base Excess 2.3 Arterial Blood Oxygen Saturation 98.4 Slim Test ACCEPTAB Arterial Blood Gas Puncture Site Right Radial Arterial Blood Carboxyhemoglobin 0.3 Arterial Blood Methemoglobin 0.7 Blood Gas A-a O2 Differential 500.1 H Oxyhemoglobin Percent 97.4 Total Hemoglobin 10.5 L Blood Gas Temperature 37.0 Blood Gas Respiration Rate 30.0 Blood Gas Actual Respiration Rate 33 Blood Gas Modality MASK - BIPAP FiO2 100.0 Blood Gas Pressure Support 15 Blood Gas IPAP/EPAP Ratio 20/5 Blood Gas Notified Whom M.D. Blood Gas Notified Time 06/14/2017 7:56:19 AM White Blood Count 21.3 #H Red Blood Count 3.53 L Hemoglobin 9.5 L Hematocrit 31.3 L Mean Corpuscular Volume 88.7 Mean Corpuscular Hemoglobin 26.9 L Mean Corpuscular Hemoglobin Concent 30.4 L Red Cell Distribution Width 16.0 H Platelet Count 105 #L Mean Platelet Volume 12.2 H Neutrophils % Segmented Neutrophils % (Manual) 82 H Band Neutrophils % (Manual) 5 H Lymphocytes % Lymphocytes % (Manual) 7 L Monocytes % Monocytes % (Manual) 6 Eosinophils % Basophils % Nucleated Red Blood Cells % 0.0 Neutrophils # Neutrophils # (Manual) 17.7 H Band Neutrophils # 1.0 H Absolute Lymphocytes (Manual) 1.4 Lymphocytes # Monocytes # Absolute Monocytes (Manual) 1.2 H Eosinophils # Basophils # Nucleated Red Blood Cells # Smudge Cells % 1 H Platelet Estimate DECREASED Polychromasia 3+ Poikilocytosis 3+ Anisocytosis 1+ Microcytosis 1+ Prothrombin Time 15.1 H Prothrombin Time Ratio 1.2 INR International Normalized Ratio 1.18 Activated Partial Thromboplast Time 26.2 Test 06/14/17 13:00 Creatine Kinase 34 Creatine Kinase Index 7.1 Creatinine Kinase MB (Mass) 2.40 Troponin I 0.323 *H Medications Medications Current Medications Sodium Chloride (NS) 1,000 ml @ 75 mls/hr [id number] IV Last administered on 06/14 02:52; Admin Dose 75 MLS/HR; Start 06/14/17 at 02:52 Ondansetron HCl (Zofran Inj) 4 mg Q6H PRN IV NAUSEA AND/OR VOMITING; Start at 03:00 Acetaminophen (Tylenol Tab) 650 mg Q6H PRN PO PAIN LEVEL 1-3 OR FEVER; Start at 03:00 Pantoprazole 40 mg 40 mg DAILY@06 IV Last administered on 06/14/17 06:30; Admin Dose 40 MG; Start 06/14/17 at 06:00 Cefepime HCl 50 ml @ 100 mls/hr Q8 IVPB Last administered on 06/14/17 08:24; Admin Dose 100 MLS/HR; Start 06/14/17 at 07:30 Levofloxacin/ Dextrose 150 ml @ 100 mls/hr Q24H IVPB Last administered on 06/14 04:26; Admin Dose 100 MLS/HR; Start 06/14/17 at 03:30 Sodium Chloride 1,000 ml @ 80 mls/hr [id number] IV ; Start 06/14/17 at 09:00 Vancomycin HCl/ Sodium Chloride (Vancocin/NS) 250 ml @ 83.333 mls/ hr Q24H IVPB ; Start 06/14/17 at 20:00 STEPHANIE PATTERSON Jun 14, 2017 14:26
--- NOTE | 2017-06-14 14:29 | QN ---
Documentation Comment pt seen and examined. h/p dictated OTIS CRESPO DO Jun 14, 2017 14:29
--- NOTE | 2017-06-14 14:59 | RADRPT ---
Echocardiogram Report Patient Name: MARINO BESS Gender: Male Date: 1935 Study Date: 14-Jun-2017 Manager Of Radiology: Norah To RDCS Location: 4 Ref. Physician: EDITH CARLSON Quality: Good Procedures: Transthoracic echocardiogram with complete 2D, M-Mode, and doppler examination. Indications: nstemi. 2D/M Mode Doppler Measurement Value Normal Ranges Measurement Value Normal Ranges LVIDd 2D 5.3 3.5 - 5.6 cm AV Peak Jeanmarie 1.2 m/sec LVIDs 2D 2.5 2.1 - 4.1 cm AV Peak PG 5.4 mmHg LVPWd 2D 1.5 0.6 - 1.1 cm LVOT Peak Jeanmarie 0.8 m/sec IVSd 2D 1.4 0.6 - 1.1 cm LVOT Peak PG 2.4 mmHg AoR Diam 2D 4.0 2.0 - 3.7 cm MV E Peak Jeanmarie 0.7 m/sec EDV 2D 133.7 cm3 MV A Peak Jeanmarie 1.0 m/sec ESV 2D 16.0 cm3 MV E/A 0.7 LA Dimen 2D 4.1 2.3 - 4.0 cm MV Decel Time 306 msec MV Decel [place] 2 MV E/A 0.7 TR Peak Jeanmarie 2.2 m/sec TR Peak PG 23.8 mmHg RVSP 31.8 mmHg Findings Left Ventricle: Overall, normal left ventricular systolic function. Not all segments visualized. Normal left ventricular cavity size. Moderate concentric left ventricular hypertrophy. Ejection fraction is visually estimated at 65 %. Tissue Doppler/Mitral Doppler indices are consistent with impaired relaxation (Stage I diastolic dysfunction). Right Ventricle: Normal right ventricular size. Normal right ventricular systolic function. Left Atrium: The left atrium is normal in size. Right Atrium: The right atrium is normal in size. Mitral Valve: Normal appearance of the mitral valve. Trace mitral regurgitation. Aortic Valve: Normal appearance of the aortic valve. No significant aortic stenosis or insufficiency. Tricuspid Valve: Normal appearance of the tricuspid valve. Estimated peak PA systolic pressure 31 mmHg. There is mild tricuspid regurgitation. Pulmonic Valve: Pulmonic valve not well visualized. Pericardium: Normal pericardium with no significant pericardial effusion. Aorta: Normal aortic root. IVC: Dilated IVC with respiratory collapse consistent with elevated right atrial pressure. Pulmonary Artery: Normal pulmonary artery size. Not well visualized. Conclusions Overall, normal left ventricular systolic function. Not all segments visualized. Normal left ventricular cavity size. Moderate concentric left ventricular hypertrophy. Ejection fraction is visually estimated at 65 %. Tissue Doppler/Mitral Doppler indices are consistent with impaired relaxation (Stage I diastolic dysfunction). Normal right ventricular size. Normal right ventricular systolic function. The left atrium is normal in size. The right atrium is normal in size. Estimated peak PA systolic pressure 31 mmHg. There is mild tricuspid regurgitation. No significant valvular stenosis or regurgitation seen of remaining visualized valves. Normal pericardium with no significant pericardial effusion. Electronically Signed By: Augie Encarnacion 14-Jun-2017 14:58:30 -0700 Patient Name: MARINO BESS Study Date: 14-Jun-2017 [id number]
[2017-06-14] MEDS ORDERED: PENDING SANTYL ORDER FOR WOUND CARE XX PRN (15:00)
--- NOTE | 2017-06-14 15:49 | RADRPT ---
PROCEDURE: Renal US. CLINICAL INDICATION: Acute kidney injury TECHNIQUE: Multiple sonographic images of the kidneys and urinary bladder were obtained. The imag es were reviewed on a PACS workstation. COMPARISON: No prior studies are available for comparison. FINDINGS: The right kidney measures 10.1 cm. The left kidney measures 11.1 cm. There is no renal mass. There is no hydronephrosis. There is no renal calculus. Renal parenchymal thickness is normal bilaterally. Both kidneys are hyperechoic consistent with medical renal disease. The perirenal regions are normal with no fluid collection or mass. There is a Hinds catheter in the bladder. IMPRESSION: 1. Bilateral hyperechoic kidneys consistent with medical renal disease. 2. Hinds catheter in the bladder. 3. Otherwise unremarkable study. RPTAT: QQ .Juan Gutierrez MD, Date Time Electronically viewed and signed by .Juan Guteirrez MD, on 06/14/2017 15:49 .R/
[2017-06-14] MEDS ORDERED: COLLAGENASE 30 GM TUBE TOP PRN (16:00)
[2017-06-14 16:19] LABS: ADD UMIC YES; UR ASCORBIC ACID NEGATIVE (NEGATIVE); UR BILIRUBIN (Dip) NEGATIVE (NEGATIVE); UR BLOOD (Dip) 3+ mg/dL (NEGATIVE); UR CLARITY SLIGHTLY CLOUDY (CLEAR); UR COLOR YELLOW (YELLOW); UR GLUCOSE (Dip) NEGATIVE (NEGATIVE); UR KETONES (Dip) NEGATIVE (NEGATIVE); UR LEUKOCYTE ESTERASE (Dip) TRACE Leu/ul (NEGATIVE); UR MUCUS FEW /HPF (NONE SEEN); UR NITRITE (Dip) NEGATIVE (NEGATIVE); UR RBC 135 /HPF (0-5); UR SPECIFIC GRAVITY (Dip) 1.017 (1.003-1.030); UR TOTAL PROTEIN (Dip) 1+ mg/dl (NEGATIVE); UR UROBILINOGEN (Dip) NEGATIVE (NEGATIVE)
[2017-06-14 17:03] LABS: CALCIUM 8.1 mg/dl (8.4-10.2); CREATININE 0.84 mg/dl (0.61-1.24)
[2017-06-14 17:19] LABS: POTASSIUM 5.4 mmol/L (3.5-5.1)
--- NOTE | 2017-06-14 17:56 | CONS ---
DATE OF ADMISSION: 06/14/2017 DATE OF CONSULTATION: 06/14/2017 REASON FOR CONSULTATION: Acute kidney injury, hypokalemia. PHYSICIAN REQUESTING CONSULT: Dr. Falcon. HISTORY OF PRESENT ILLNESS: This is an 81-year-old male with a past medical history of hypertension, history of diabetes, history of peripheral vascular disease, history of COPD, history of chronic kidney disease, history of Parkinson's disease, and previous history of sepsis, who presents to [facility] with shortness of breath. The patient come from a convalescent home and was noted to have increased shortness of breath. The patient was placed on non-rebreather by paramedics. Upon arrival to the emergency room the patient had a chest x-ray, and CT scan which showed a large consolidation and/or mass of the right hemothorax. Underlying malignancy suspected and there is contralateral non-consolidated left lung suggestive of small airway disease. The patient is placed on BiPAP, placed on IV antibiotics and IV fluids. RENAL HISTORY: Per patient's brother at bedside, the patient is has no significant prior kidney history. The patient per family does take TOSIN inhibitors. Denies any recent NSAID use. The patient does take diuretic therapy, the patient is on Lasix. There has been no reports of hemoptysis, hematemesis, or hematochezia. No rashes. PAST MEDICAL HISTORY: As stated above. Questionable CKD, history of diabetes, Parkinson's, COPD, pneumonia, encephalopathy, peripheral vascular disease, BPH, and hypertension. PAST SURGICAL HISTORY: Prior right lobectomy. FAMILY HISTORY: Noncontributory. SOCIAL HISTORY: Lives at a detention facility. MEDICATION: The patient medications has been reviewed. REVIEW OF SYSTEMS: Unable to do adequate review of systems, patient is altered. Pertinent positives as obtained by reviewing medical records, speaking to hospital staff, as state in the HPI, otherwise negative. PHYSICAL EXAMINATION: VITAL SIGNS: Blood pressure 120/49, respirations 24, pulse 76, and temperature 98.8. HEENT: Head is normocephalic. Pupils are reactive to light. NECK: Supple. HEART: Regular rate. LUNGS: Diminished breath sounds bases, right greater than left. ABDOMEN: Soft, nontender to palpation. No rebound or guarding. EXTREMITIES: Negative for clubbing and cyanosis. No edema. DERMATOLOGIC: No rashes. MUSCULOSKELETAL: No joint effusion. NEUROLOGIC: Limited exam due to lack of patient cooperation. LABORATORY AND DIAGNOSTIC DATA: Sodium 143, potassium 5.8, BUN 31, creatinine 0.85. Urinalysis shows positive bacteria, pyuria, and hematuria. Positive protein. White count 21.3, hemoglobin 9.5, hematocrit 31.3, and platelet count is 108. IMAGING: Imaging studies as stated in HPI. ASSESSMENT AND PLAN: This is an 81-year-old male presents: 1. Nonoliguric acute kidney injury with questionable chronic kidney disease (CKD) unknown baseline creatinine. Etiology is likely secondary to hemodynamics, possible septic acute kidney injury (SHARRON). The patient's urinalysis shows evidence of pyuria, hematuria and positive proteinuria possibly due to urinary tract infection (UTI), questionable active sediment. Plan at this point would be to continue current treatment plan. Continue intravenous (IV) fluids. Continue intravenous (IV) antibiotics. We will monitor renal function closely. 2. Hypokalemia. Etiology is likely secondary to underlying TOSIN inhibitor in conjunction with recent potassium chloride, acute kidney injury (SHARRON). Plan at this point is to continue intravenous (IV) hydration. We will hold TOSIN inhibitor. We will repeat a renal panel. Would expect hypokalemia to improved. 3. Anemia. Monitor hemoglobin and hematocrit levels. 4. Mineral bone disorder. Monitor calcium and phosphorus levels. 5. Severe sepsis secondary to possible pneumonia and urinary tract infection (UI). Continue current antibiotic regimen. Cultures have been reviewed. Consider Infectious Disease (ID) evaluation. 6. Acute hypoxemic respiratory failure secondary to pneumonia, questionable lung mass. Continue current medical management. Continue BiPAP. Followup with Pulmonary. 7. Acute encephalopathy, etiology is toxic metabolic. Continue to monitor. 8. Elevated troponin, rule out acute coronary syndrome. The patient is currently on heparin. Continue to observe. Follow up with Cardiology for recommendations. 9. History of right lung cancer, status post resection. Thank you for very much for this interesting consult. It will be a pleasure to follow patient with you throughout the hospital course. Dictated By: David Brnad DO /ke/mihir /Document#: [id number]
[2017-06-14] MEDS: VANCOMYCIN 1.5 GM in SOD CHLORIDE 0.9% 250 ML IVPB SCH (20:24)
[2017-06-15] VITALS (96 sets, daily range): BP systolic 73–159; BP diastolic 30–87; PULSE 0–168; RESP 0–27
--- NOTE | 2017-06-15 01:17 | EN ---
Date/Time of Note Date/Time of Note DATE: 06/15/17 TIME: 01:10 Event Note Medicine Medicine Event Note There was a code blue just a little while ago. Per nursing, patient initially hypoxic and bradycardic then went into PEA. During the code, he was in V-fib and was shocked before pulse was restored. He has been started on amiodarone and now BP is 135/52 with MAP of 75, HR 87 and sinus, O2sat 99% on vent with FIO2 of 100%. Patient also had bright red blood of about 200cc that was suctioned from his mouth. Will stop his heparin gtt. Patient's son was contacted by nurse who wanted everything to be done. He also said that patient was intubated 2 weeks ago at outside hospital. . RICH CHOI MD Jun 15, 2017 01:17
[2017-06-15] MEDS ORDERED: NORepinephrine 8MG/250 ML (PMX 250 ML ONE (01:48)
[2017-06-15] MEDS ORDERED: AMIODARONE 900 MG in DEXTROSE 5% 482 ML IV SCH (02:30)
[2017-06-15] MEDS: NORepinephrine 8MG/250 ML (PMX 250 ML IV SCH ×2 (02:30→11:36)
[2017-06-15] MEDS: SOD CHLORIDE 0.9% 1,000 ML IV SCH ×3 (02:40→16:06)
[2017-06-15] MEDS ORDERED: PROPOFOL 100 ML ONE (04:20)
[2017-06-15] MEDS: PROPOFOL 100 ML IV SCH ×2 (04:30→14:50)
[2017-06-15 05:28] LABS: ABNORMAL IP MESSAGE 1; BASOPHILS % 0.1 % (0.0-2.0); HEMATOCRIT 29.8 % (42.0-52.0); HEMOGLOBIN 8.8 g/dl (14.0-18.0); LYMPHOCYTES # 0.3 10^3/ul (0.8-2.9); LYMPHOCYTES % 1.2 % (15.0-51.0); MEAN CORPUSCULAR HEMOGLOBIN 27.2 pg (29.0-33.0); MEAN CORPUSCULAR HGB CONC 29.5 g/dl (32.0-37.0); MEAN PLATELET VOLUME 11.9 fl (7.4-10.4); MONOCYTE # 0.9 10^3/ul (0.3-0.9); MONOCYTES % 3.8 % (0.0-11.0); NEUTROPHIL # 21.9 10^3/ul (1.6-7.5); NEUTROPHILS % 93.6 % (39.0-77.0); PLATELET COUNT 119 10^3/UL (140-415); POSITIVE DIFF @See below; RED BLOOD COUNT 3.24 10^6/ul (4.70-6.10); RED CELL DISTRIBUTION WIDTH 15.9 % (11.5-14.5); WHITE BLOOD COUNT 23.5 10^3/ul (4.8-10.8)
[2017-06-15] MEDS: PANTOPRAZOLE 40 MG INJ IV SCH (06:04)
[2017-06-15] MEDS: LEVOFLOXACIN 750MG/D5W (PMX) 150 ML IVPB SCH (06:20)
[2017-06-15] MEDS: CEFEPIME 2GM/50 ML (PMX) 50 ML IVPB SCH (06:21)
--- NOTE | 2017-06-15 06:22 | RADRPT ---
AMENDMENT: 06/15/2017 12:19:58 PM Khadra Grey M.D. There is no PICC line in place. The PICC line mentioned in the body report is a template error. PROCEDURE: XR Chest. CLINICAL INDICATION: Endotracheal tube placement TECHNIQUE: 2 AP views of the chest were obtained COMPARISON: Chest x-ray dated 06/14/2017 FINDINGS: The endotracheal tube tip is approximately 5.4 cm above the john. The tip of the enteric tube pro jects over the left upper quadrant. There is a right upper extremity PICC line with tip near the cav oatrial junction. There is prominence of the left lung interstitial and central pulmonary vascular markings with smal l left pleural effusion. There is persistent dense consolidation of the right lung. No pneumothorax is seen. The cardiomediastinal silhouette is mildly enlarged . Calcifications are seen within the aortic arch. The osseous structures demonstrate senescent changes. IMPRESSION: 1. Dense consolidation of the right lung with right pleural effusion. No significant interval singh e. 2. Findings suggesting pulmonary vascular congestion/interstitial edema with small left pleural eff usion. No significant interval change. 3. Mild cardiomegaly and aortic atherosclerosis. 4. Tubes and lines, as described above. RPTAT: HH .Khadra Grey MD, MD Date Time Electronically viewed and signed by .Khadra Grey MD, on 06/15/2017 12:19 .G/
[2017-06-15 06:28] LABS: ALBUMIN 2.8 g/dl (3.3-4.9); ALBUMIN/GLOBULIN RATIO 1.07; BILIRUBIN,INDIRECT 1.2 mg/dl (0-1.1); BILIRUBIN,TOTAL 1.2 mg/dl (0.2-1.3); CALCIUM 8.3 mg/dl (8.4-10.2); CREATININE 1.02 mg/dl (0.61-1.24); MAGNESIUM 2.3 mg/dl (1.7-2.5); PHOSPHORUS 4.5 mg/dl (2.5-4.9); POTASSIUM 5.3 mmol/L (3.5-5.1); TOTAL PROTEIN 5.4 g/dl (6.1-8.1)
[2017-06-15] MEDS ORDERED: GLUCAGON 1 MG INJ IM PRN (07:00)
[2017-06-15] MEDS ORDERED: GLUCOSE GEL 15 GRAM TUBE PO PRN ×2 (07:00)
[2017-06-15] MEDS ORDERED: INSULIN ASPART [NOVOLOG] 3 ML PEN SC SCH ×2 (07:00→09:00)
[2017-06-15] MEDS ORDERED: DEXTROSE 50% 50 ML SYRINGE IV PRN ×4 (07:00→10:00)
[2017-06-15] MEDS ORDERED: GLUCOSE GEL 15 GRAM TUBE BUCCAL PRN (07:00)
[2017-06-15 07:24] LABS: AADO2 Arterial 546.3 mmHg (7.0-24.0); Arterial Base Excess 2.1 mmol/L (-3.0-3); Arterial COHb 0.3 % (0.0-3.0); Arterial Fraction of Oxyhgb 96.5 % (93.0-99.0); Arterial HCO3 28.7 mmol/L (22.0-26.0); Arterial MetHb 0.6 % (0.0-1.5); Arterial Total Hemglobin 9.1 g/dl (12.0-18.0); MODE VENT - AC
--- NOTE | 2017-06-15 07:38 | PN ---
Date/Time of Note Date/Time of Note DATE: 06/15/17 TIME: 07:30 Assessment/Plan VTE Prophylaxis VTE Prophylaxis Intervention: other Lines/Catheters IV Catheter Type (from Nrs): Peripheral IV Urinary Cath still in place: Yes Reason Cath still needed: other (indicate) Assessment/Plan Chief Complaint/Hosp Course 1. Nonoliguric acute kidney injury on top of CKD Etiology is likely secondary hemodynamics, sepsis Patient's renal function has improved with IV hydration, Urinary output has been marginal Urinalysis was reviewed, pyuria, hematuria likely from Hinds trauma, nonglomerular proteinuria, renal ultrasound shows evidence of echogenic kidneys consistent with chronic kidney disease Continue current treatment plan continue IV fluids IV antibiotics, monitor renal function closely 2. hyperkalemia etiology likely from recent TOSIN inhibitor, potassium supplementation Potassium levels remain elevated but improving Continue to monitor . 3. Anemia. Monitor hemoglobin and hematocrit levels. 4. Mineral bone disorder. Monitor calcium and phosphorus levels. 4, Hypernatremia We will start patient free water flushes 200 cc every 4 hours 5. s/p Code arrest etiology likely respiratory Patient with spontaneous return of circulation We will continue to monitor 5. Severe sepsis secondary to possible pneumonia and urinary tract infection (UI). Continue antibiotics, IV fluids, Cultures reviewed 6. Ventilator dependent respiratory failure Chest x-ray ABG reviewed Follow-up with pulmonary 7. Acute encephalopathy, etiology is toxic metabolic. Continue to monitor. 8. Elevated troponin, rule out acute coronary syndrome. Continue current medical management Follow-up with cardiology 9. History of right lung cancer, status post resection. Questionable recurrence Problems: Subjective 24 Hr Interval Summary Free Text/Dictation Patient seen and examined Patient had code arrest yesterday required shock Eventual return of spontaneous circulation Patient was intubated Urinary output has been marginal approximately 30 cc an hour Exam/Review of Systems Vital Signs Vitals Vital Signs Date Time Temp Pulse Resp B/P Pulse Ox O2 Delivery O2 Flow Rate FiO2 06/15/17 06:45 57 17 102/53 100 Mechanical Ventilator 06/15/17 05:40 60 06/15/17 04:00 96.3 06/14/17 12:30 15.0 Intake and Output 06/14/17 06/14/17 06/15/17 15:00 23:00 07:00 Intake Total 270 ml 472.0 ml 565.925 ml Output Total 640 ml 445 ml 241 ml Balance -370 ml 27.0 ml 324.925 ml Exam HEENT: Head is normocephalic, NECK: Supple. HEART: Irregular LUNGS: Show diminished breath sounds at base. ABDOMEN: Soft, nontender to palpation without rebound or guarding. EXTREMITIES: Negative for clubbing, cyanosis. DERMATOLOGIC: No rashes. MUSCULOSKELETAL: No joint effusions, NEUROLOGIC: No change in exam. Results Result Diagram: 06/15/17 0445 06/15/17 0445 Results 24 hrs Laboratory Tests Test 06/14/17 07:44 06/14/17 08:18 06/14/17 10:48 06/14/17 13:00 Blood Gas Specimen Source Blood arterial Arterial Blood Date Drawn 06/14/2017 7:45:35 AM Arterial Blood pH (Temp corrected) 7.313 L Arterial Blood pCO2 (Temp correct) 59.5 H Arterial Blood pO2 (Temp corrected) 153.4 H Arterial Blood HCO3 29.5 H Arterial Blood Base Excess 2.3 Arterial Blood Oxygen Saturation 98.4 Slim Test ACCEPTAB Arterial Blood Gas Puncture Site Right Radial Arterial Blood Carboxyhemoglobin 0.3 Arterial Blood Methemoglobin 0.7 Blood Gas A-a O2 Differential 500.1 H Oxyhemoglobin Percent 97.4 Total Hemoglobin 10.5 L Blood Gas Temperature 37.0 Blood Gas Respiration Rate 30.0 Blood Gas Actual Respiration Rate 33 Blood Gas Modality MASK - BIPAP FiO2 100.0 Blood Gas Pressure Support 15 Blood Gas IPAP/EPAP Ratio 20/5 Blood Gas Notified Whom M.D. Blood Gas Notified Time 06/14/2017 7:56:19 AM White Blood Count 21.3 #H Red Blood Count 3.53 L Hemoglobin 9.5 L Hematocrit 31.3 L Mean Corpuscular Volume 88.7 Mean Corpuscular Hemoglobin 26.9 L Mean Corpuscular Hemoglobin Concent 30.4 L Red Cell Distribution Width 16.0 H Platelet Count 105 #L Mean Platelet Volume 12.2 H Neutrophils % Segmented Neutrophils % (Manual) 82 H Band Neutrophils % (Manual) 5 H Lymphocytes % Lymphocytes % (Manual) 7 L Monocytes % Monocytes % (Manual) 6 Eosinophils % Basophils % Nucleated Red Blood Cells % 0.0 Neutrophils # Neutrophils # (Manual) 17.7 H Band Neutrophils # 1.0 H Absolute Lymphocytes (Manual) 1.4 Lymphocytes # Monocytes # Absolute Monocytes (Manual) 1.2 H Eosinophils # Basophils # Nucleated Red Blood Cells # Smudge Cells % 1 H Platelet Estimate DECREASED Polychromasia 3+ Poikilocytosis 3+ Anisocytosis 1+ Microcytosis 1+ Prothrombin Time 15.1 H Prothrombin Time Ratio 1.2 INR International Normalized Ratio 1.18 Activated Partial Thromboplast Time 26.2 Lactic Acid Level 1.4 1.6 Sodium Level 143 Potassium Level 5.8 H Chloride Level 101 Carbon Dioxide Level 32 H Anion Gap 16 Blood Urea Nitrogen 31 H Creatinine 0.85 Glucose Level 224 H Calcium Level 8.0 L Total Bilirubin 0.9 Direct Bilirubin 0.00 Indirect Bilirubin 0.9 Aspartate Amino Transf (AST/SGOT) 18 Alanine Aminotransferase (ALT/SGPT) 31 Alkaline Phosphatase 44 Total Protein 5.4 L Albumin 3.0 L Globulin 2.40 Albumin/Globulin Ratio 1.25 Creatine Kinase 34 Creatine Kinase Index 7.1 Creatinine Kinase MB (Mass) 2.40 Troponin I 0.323 *H Test 06/14/17 15:30 06/14/17 16:00 06/14/17 19:08 06/15/17 00:01 Urine Color YELLOW Urine Clarity SLIGHTLY CLOUDY A Urine pH 5.0 Urine Specific [place] 1.017 Urine Ketones NEGATIVE Urine Nitrite NEGATIVE Urine Bilirubin NEGATIVE Urine Urobilinogen NEGATIVE Urine Leukocyte Esterase TRACE A Urine Microscopic RBC 135 H Urine Microscopic WBC 11 H Urine Mucus FEW A Urine Hemoglobin 3+ H Urine Random Creatinine 64.00 Urine Random Sodium 21 L Urine Glucose NEGATIVE Urine Total Protein 34.0 H Sodium Level 144 Potassium Level 5.4 H Chloride Level 102 Carbon Dioxide Level 34 H Anion Gap 13 Blood Urea Nitrogen 30 H Creatinine 0.84 Glucose Level 167 Calcium Level 8.1 L Troponin I 0.298 *H 0.302 *H Activated Partial Thromboplast Time 54.3 H Test 06/15/17 00:36 06/15/17 02:35 06/15/17 04:45 Bedside Glucose 207 Blood Gas Specimen Source Blood arterial Arterial Blood Date Drawn 06/15/2017 2:30:00 AM Arterial Blood pH (Temp corrected) 7.325 L Arterial Blood pCO2 (Temp correct) 56.4 H Arterial Blood pO2 (Temp corrected) 110.3 H Arterial Blood HCO3 28.7 H Arterial Blood Base Excess 2.1 Arterial Blood Oxygen Saturation 97.4 Slim Test N/A Arterial Blood Gas Puncture Site Right Brachial Arterial Blood Carboxyhemoglobin 0.3 Arterial Blood Methemoglobin 0.6 Blood Gas A-a O2 Differential 546.3 H Oxyhemoglobin Percent 96.5 Total Hemoglobin 9.1 L Blood Gas Temperature 37.0 Blood Gas Respiration Rate 16.0 Blood Gas Actual Respiration Rate 16 Blood Gas Modality VENT - AC FiO2 100.0 Blood Gas Tidal Volume 500.0 Blood Gas Low PEEP Setting 5.0 Blood Gas Notified Whom UP Blood Gas Notified Time 06/15/2017 2:42:00 AM White Blood Count 23.5 H Red Blood Count 3.24 L Hemoglobin 8.8 L Hematocrit 29.8 L Mean Corpuscular Volume 92.0 Mean Corpuscular Hemoglobin 27.2 L Mean Corpuscular Hemoglobin Concent 29.5 L Red Cell Distribution Width 15.9 H Platelet Count 119 L Mean Platelet Volume 11.9 H Neutrophils % 93.6 H Lymphocytes % 1.2 L Monocytes % 3.8 Eosinophils % 0.0 Basophils % 0.1 Nucleated Red Blood Cells % 0.0 Neutrophils # 21.9 H Lymphocytes # 0.3 L Monocytes # 0.9 Eosinophils # 0.0 Basophils # 0.0 Nucleated Red Blood Cells # 0.0 Sodium Level 146 H Potassium Level 5.3 H Chloride Level 104 Carbon Dioxide Level 31 Anion Gap 16 Blood Urea Nitrogen 31 H Creatinine 1.02 Glucose Level 270 #H Calcium Level 8.3 L Phosphorus Level 4.5 Magnesium Level 2.3 Total Bilirubin 1.2 Direct Bilirubin 0.00 Indirect Bilirubin 1.2 H Aspartate Amino Transf (AST/SGOT) 109 #H Alanine Aminotransferase (ALT/SGPT) 85 H Alkaline Phosphatase 52 Total Protein 5.4 L Albumin 2.8 L Globulin 2.60 Albumin/Globulin Ratio 1.07 Medications Medications Current Medications Sodium Chloride (NS) 1,000 ml @ 75 mls/hr [id number] IV Last administered on 02:40; Admin Dose 75 MLS/HR; Start 06/14/17 at 02:52 Ondansetron HCl (Zofran Inj) 4 mg Q6H PRN IV NAUSEA AND/OR VOMITING; Start at 03:00 Acetaminophen (Tylenol Tab) 650 mg Q6H PRN PO PAIN LEVEL 1-3 OR FEVER; Start at 03:00 Pantoprazole 40 mg 40 mg DAILY@06 IV Last administered on 06/15/17 06:04; Admin Dose 40 MG; Start 06/14/17 at 06:00 Cefepime HCl 50 ml @ 100 mls/hr Q8 IVPB Last administered on 06/15/17 06:21; Admin Dose 100 MLS/HR; Start 06/14/17 at 07:30 Levofloxacin/ Dextrose 150 ml @ 100 mls/hr Q24H IVPB Last administered on 06:20; Admin Dose 100 MLS/HR; Start 06/14/17 at 03:30 Sodium Chloride 1,000 ml @ 80 mls/hr [id number] IV ; Start 06/14/17 at 09:00 Vancomycin HCl/ Sodium Chloride (Vancocin/NS) 250 ml @ 83.333 mls/ hr Q24H IVPB Last administered on 06/14/17 20:24; Admin Dose 83.333 MLS/HR; Start at 20:00 Miscellaneous Information (Pending Santyl Order For Wound Care) This patient meza... PRN PRN XX WOUND CARE; Start 06/14/17 at 15:00 Collagenase (Santyl) 1 applic DAILY TOP ; Start 06/15/17 at 09:00 Collagenase 1 applic 1 applic PRN PRN TOP WOUND CARE; Start 06/14/17 at 16:00 Norepinephrine 250 ml @ 1.875 mls/ hr TITRATE IV Last administered on 02:30; Admin Dose 3.75 MLS/HR; Start 06/15/17 at 02:00 Amiodarone HCl 900 mg/Dextrose 500 ml @ 0 mls/hr Q0M IV Last administered on 02:30; Admin Dose 1 MLS/HR; Start 06/15/17 at 02:30; Stop 06/16/17 at 02:29 Propofol (Diprivan) 100 ml @ 2.55 mls/hr Q12H IV Last administered on 04:30; Admin Dose 2.55 MLS/HR; Start 06/15/17 at 04:30 Diagnostic Test (Pha) (Accu-Chek) 1 ea 02 XX ; Start 06/16/17 at 02:00 Miscellaneous Information 1 ea NOTE XX ; Start 06/15/17 at 07:00 Glucose (Glutose) 15 gm Q15M PRN PO DECREASED GLUCOSE; Start 06/15/17 at 07:00 Glucose (Glutose) 22.5 gm Q15M PRN PO DECREASED GLUCOSE; Start 06/15/17 at 07:00 Dextrose (D50w Syringe) 25 ml Q15M PRN IV DECREASED GLUCOSE; Start 06/15/17 at 07:00 Dextrose (D50w Syringe) 50 ml Q15M PRN IV DECREASED GLUCOSE; Start 06/15/17 at 07:00 Glucagon (Glucagen) 1 mg Q15M PRN IM DECREASED GLUCOSE; Start 06/15/17 at 07:00 Glucose (Glutose) 15 gm Q15M PRN BUCCAL DECREASED GLUCOSE; Start 06/15/17 at 07: 00 Insulin Aspart (Novolog Insulin Pen) NOVOLOG *MODERATE* ALGORI... Q4 SC ; Start 06/15/17 at 09:00; Status OTIS MCCLOUD DO Jun 15, 2017 07:38
--- NOTE | 2017-06-15 07:49 | CONS ---
Date/Time of Note Date/Time of Note DATE: 06/15/17 TIME: 07:47 Assessment/Plan Assessment/Plan Additional Assessment/Plan Ventilator setting; AC of 16, tidal volume 500, PEEP of 5, 60% FiO2. Chest x-ray was reviewed post intubation was again showing extensive infiltrative changes on right side with slight interval improvement. Assessment and recommendations; 1. Patient admitted with severe pneumonia on a background of chronic right lung disease due to prior lobectomy from lung cancer. 2. Parkinson's disease. 3. Status post CPR. Continue current treatment. Consultation Date/Type/Reason Admit Date/Time Jun 14, 2017 at 02:51 Initial Consult Date 06/14/17 Type of Consultation: Pulmonary critical care 24 HR Interval Summary Free Text/Dictation Patient condition is critical. Had to be intubated after undergoing cardiac arrest earlier this morning, 20 minutes CPR was done with revival of vital signs. General exam; elderly male, orally intubated, awake but unresponsive to any commands. Currently in no distress. Exam/Review of Systems Vital Signs Vitals Vital Signs Date Time Temp Pulse Resp B/P Pulse Ox O2 Delivery O2 Flow Rate FiO2 06/15/17 07:30 98.7 57 16 124/49 100 Mechanical Ventilator 06/15/17 05:40 60 06/14/17 12:30 15.0 Intake and Output 06/14/17 06/14/17 06/15/17 15:00 23:00 07:00 Intake Total 270 ml 472.0 ml 721.025 ml Output Total 640 ml 445 ml 241 ml Balance -370 ml 27.0 ml 480.025 ml Exam HEENT exam; supple neck, no JVD. No lymphadenopathy. Midline trachea. No thyromegaly. Orally intubated. Chest exam; there is a well-healed right thoracotomy scar. Diminished breath sounds bilaterally. More pronounced in the right lung. S1-S2 audible, no murmurs. Regular rhythm. Abdomen exam; soft, nondistended. Bowel sounds audible. Extremity exam; trace edema. DIDACTIC INSTRUCTOR exam; patient is awake but unresponsive. Results Result Diagram: 06/15/17 0445 06/15/17 0445 Results 24 hrs Laboratory Tests Test 06/14/17 08:18 06/14/17 10:48 06/14/17 13:00 06/14/17 15:30 White Blood Count 21.3 #H Red Blood Count 3.53 L Hemoglobin 9.5 L Hematocrit 31.3 L Mean Corpuscular Volume 88.7 Mean Corpuscular Hemoglobin 26.9 L Mean Corpuscular Hemoglobin Concent 30.4 L Red Cell Distribution Width 16.0 H Platelet Count 105 #L Mean Platelet Volume 12.2 H Neutrophils % Segmented Neutrophils % (Manual) 82 H Band Neutrophils % (Manual) 5 H Lymphocytes % Lymphocytes % (Manual) 7 L Monocytes % Monocytes % (Manual) 6 Eosinophils % Basophils % Nucleated Red Blood Cells % 0.0 Neutrophils # Neutrophils # (Manual) 17.7 H Band Neutrophils # 1.0 H Absolute Lymphocytes (Manual) 1.4 Lymphocytes # Monocytes # Absolute Monocytes (Manual) 1.2 H Eosinophils # Basophils # Nucleated Red Blood Cells # Smudge Cells % 1 H Platelet Estimate DECREASED Polychromasia 3+ Poikilocytosis 3+ Anisocytosis 1+ Microcytosis 1+ Prothrombin Time 15.1 H Prothrombin Time Ratio 1.2 INR International Normalized Ratio 1.18 Activated Partial Thromboplast Time 26.2 Lactic Acid Level 1.4 1.6 Sodium Level 143 Potassium Level 5.8 H Chloride Level 101 Carbon Dioxide Level 32 H Anion Gap 16 Blood Urea Nitrogen 31 H Creatinine 0.85 Glucose Level 224 H Calcium Level 8.0 L Total Bilirubin 0.9 Direct Bilirubin 0.00 Indirect Bilirubin 0.9 Aspartate Amino Transf (AST/SGOT) 18 Alanine Aminotransferase (ALT/SGPT) 31 Alkaline Phosphatase 44 Total Protein 5.4 L Albumin 3.0 L Globulin 2.40 Albumin/Globulin Ratio 1.25 Creatine Kinase 34 Creatine Kinase Index 7.1 Creatinine Kinase MB (Mass) 2.40 Troponin I 0.323 *H Urine Color YELLOW Urine Clarity SLIGHTLY CLOUDY A Urine pH 5.0 Urine Specific [place] 1.017 Urine Ketones NEGATIVE Urine Nitrite NEGATIVE Urine Bilirubin NEGATIVE Urine Urobilinogen NEGATIVE Urine Leukocyte Esterase TRACE A Urine Microscopic RBC 135 H Urine Microscopic WBC 11 H Urine Mucus FEW A Urine Hemoglobin 3+ H Urine Random Creatinine 64.00 Urine Random Sodium 21 L Urine Glucose NEGATIVE Urine Total Protein 34.0 H Test 06/14/17 16:00 06/14/17 19:08 06/15/17 00:01 06/15/17 00:36 Sodium Level 144 Potassium Level 5.4 H Chloride Level 102 Carbon Dioxide Level 34 H Anion Gap 13 Blood Urea Nitrogen 30 H Creatinine 0.84 Glucose Level 167 Calcium Level 8.1 L Troponin I 0.298 *H 0.302 *H Activated Partial Thromboplast Time 54.3 H Bedside Glucose 207 Test 06/15/17 02:35 06/15/17 04:45 Blood Gas Specimen Source Blood arterial Arterial Blood Date Drawn 06/15/2017 2:30:00 AM Arterial Blood pH (Temp corrected) 7.325 L Arterial Blood pCO2 (Temp correct) 56.4 H Arterial Blood pO2 (Temp corrected) 110.3 H Arterial Blood HCO3 28.7 H Arterial Blood Base Excess 2.1 Arterial Blood Oxygen Saturation 97.4 Slim Test N/A Arterial Blood Gas Puncture Site Right Brachial Arterial Blood Carboxyhemoglobin 0.3 Arterial Blood Methemoglobin 0.6 Blood Gas A-a O2 Differential 546.3 H Oxyhemoglobin Percent 96.5 Total Hemoglobin 9.1 L Blood Gas Temperature 37.0 Blood Gas Respiration Rate 16.0 Blood Gas Actual Respiration Rate 16 Blood Gas Modality VENT - AC FiO2 100.0 Blood Gas Tidal Volume 500.0 Blood Gas Low PEEP Setting 5.0 Blood Gas Notified Whom UP Blood Gas Notified Time 06/15/2017 2:42:00 AM White Blood Count 23.5 H Red Blood Count 3.24 L Hemoglobin 8.8 L Hematocrit 29.8 L Mean Corpuscular Volume 92.0 Mean Corpuscular Hemoglobin 27.2 L Mean Corpuscular Hemoglobin Concent 29.5 L Red Cell Distribution Width 15.9 H Platelet Count 119 L Mean Platelet Volume 11.9 H Neutrophils % 93.6 H Lymphocytes % 1.2 L Monocytes % 3.8 Eosinophils % 0.0 Basophils % 0.1 Nucleated Red Blood Cells % 0.0 Neutrophils # 21.9 H Lymphocytes # 0.3 L Monocytes # 0.9 Eosinophils # 0.0 Basophils # 0.0 Nucleated Red Blood Cells # 0.0 Sodium Level 146 H Potassium Level 5.3 H Chloride Level 104 Carbon Dioxide Level 31 Anion Gap 16 Blood Urea Nitrogen 31 H Creatinine 1.02 Glucose Level 270 #H Calcium Level 8.3 L Phosphorus Level 4.5 Magnesium Level 2.3 Total Bilirubin 1.2 Direct Bilirubin 0.00 Indirect Bilirubin 1.2 H Aspartate Amino Transf (AST/SGOT) 109 #H Alanine Aminotransferase (ALT/SGPT) 85 H Alkaline Phosphatase 52 Total Protein 5.4 L Albumin 2.8 L Globulin 2.60 Albumin/Globulin Ratio 1.07 Medications Medications Current Medications Sodium Chloride (NS) 1,000 ml @ 75 mls/hr [id number] IV Last administered on 02:40; Admin Dose 75 MLS/HR; Start 06/14/17 at 02:52 Ondansetron HCl (Zofran Inj) 4 mg Q6H PRN IV NAUSEA AND/OR VOMITING; Start at 03:00 Acetaminophen (Tylenol Tab) 650 mg Q6H PRN PO PAIN LEVEL 1-3 OR FEVER; Start at 03:00 Pantoprazole 40 mg 40 mg DAILY@06 IV Last administered on 06/15/17 06:04; Admin Dose 40 MG; Start 06/14/17 at 06:00 Cefepime HCl 50 ml @ 100 mls/hr Q8 IVPB Last administered on 06/15/17 06:21; Admin Dose 100 MLS/HR; Start 06/14/17 at 07:30 Levofloxacin/ Dextrose 150 ml @ 100 mls/hr Q24H IVPB Last administered on 06:20; Admin Dose 100 MLS/HR; Start 06/14/17 at 03:30 Sodium Chloride 1,000 ml @ 80 mls/hr [id number] IV ; Start 06/14/17 at 09:00 Vancomycin HCl/ Sodium Chloride (Vancocin/NS) 250 ml @ 83.333 mls/ hr Q24H IVPB Last administered on 06/14/17 20:24; Admin Dose 83.333 MLS/HR; Start at 20:00 Miscellaneous Information (Pending Santyl Order For Wound Care) This patient meza... PRN PRN XX WOUND CARE; Start 06/14/17 at 15:00 Collagenase (Santyl) 1 applic DAILY TOP ; Start 06/15/17 at 09:00 Collagenase 1 applic 1 applic PRN PRN TOP WOUND CARE; Start 06/14/17 at 16:00 Norepinephrine 250 ml @ 1.875 mls/ hr TITRATE IV Last administered on 02:30; Admin Dose 3.75 MLS/HR; Start 06/15/17 at 02:00 Amiodarone HCl 900 mg/Dextrose 500 ml @ 0 mls/hr Q0M IV Last administered on 02:30; Admin Dose 1 MLS/HR; Start 06/15/17 at 02:30; Stop 06/16/17 at 02:29 Propofol (Diprivan) 100 ml @ 2.55 mls/hr Q12H IV Last administered on 04:30; Admin Dose 2.55 MLS/HR; Start 06/15/17 at 04:30 Diagnostic Test (Pha) (Accu-Chek) 1 ea 02 XX ; Start 06/16/17 at 02:00 Miscellaneous Information 1 ea NOTE XX ; Start 06/15/17 at 07:00 Glucose (Glutose) 15 gm Q15M PRN PO DECREASED GLUCOSE; Start 06/15/17 at 07:00 Glucose (Glutose) 22.5 gm Q15M PRN PO DECREASED GLUCOSE; Start 06/15/17 at 07:00 Dextrose (D50w Syringe) 25 ml Q15M PRN IV DECREASED GLUCOSE; Start 06/15/17 at 07:00 Dextrose (D50w Syringe) 50 ml Q15M PRN IV DECREASED GLUCOSE; Start 06/15/17 at 07:00 Glucagon (Glucagen) 1 mg Q15M PRN IM DECREASED GLUCOSE; Start 06/15/17 at 07:00 Glucose (Glutose) 15 gm Q15M PRN BUCCAL DECREASED GLUCOSE; Start 06/15/17 at 07: 00 Insulin Aspart (Novolog Insulin Pen) NOVOLOG *MODERATE* ALGORI... Q4 SC ; Start 06/15/17 at 09:00 STEPHANIE PATTERSON Jun 15, 2017 07:48
[2017-06-15] MEDS: COLLAGENASE 30 GM TUBE TOP SCH (09:19)
--- NOTE | 2017-06-15 09:39 | CONS ---
Date/Time of Note Date/Time of Note DATE: 06/15/17 TIME: 09:28 Assessment/Plan Assessment/Plan Additional Assessment/Plan Brief note I have spoken with pts son this morning .. two weeks ago admitted to [facility] with PNA. At that time required intubation for PNA.. Son sounds very realistic about prognosis but he is not the only decision maker, is able to make all decisions on pts behalf. At this time he is a full code , son could not address that issue without other family but he wants to do everything at this time. Suggest family conference as soon as possible. Will ask SWS to schedule Consultation Date/Type/Reason Admit Date/Time Jun 14, 2017 at 02:51 Date of Consultation: Jun 15, 2017 Type of Consultation: Palliative Care Hx of Present Illness Refer to Assesment and Plan Social History Smoking Status: Never smoker Exam/Review of Systems Vital Signs Vitals Vital Signs Date Time Temp Pulse Resp B/P Pulse Ox O2 Delivery O2 Flow Rate FiO2 06/15/17 08:00 60 06/15/17 07:30 98.7 57 16 124/49 100 Mechanical Ventilator 06/14/17 12:30 15.0 Intake and Output 06/14/17 06/14/17 06/15/17 15:00 23:00 07:00 Intake Total 270 ml 472.0 ml 721.025 ml Output Total 640 ml 445 ml 241 ml Balance -370 ml 27.0 ml 480.025 ml Exam Constitutional: other (Sedated) Head: No atraumatic, No hematomas, No lacerations, No normocephalic, No other Neck: No bruits, No jvd, No masses, No non-tender, No nuchal rigidity, No other , No supple, No thyromegaly Respiratory: congested cough, crackles/rales, diminished breath sounds Cardiovascular: No S3, No S4, No bruits, No diastolic murmur, No edema, No gallop, No irregular rhythm, No jugular venous distention (JVD), No murmurs/ extra sounds, No nl pulses, No other, No regular rate and rhythm, No rub, No systolic murmur Gastrointestinal: No ascites, No bowel sounds, No distended, No firm, No hepatomegaly, No mass, No nl liver, spleen, No non-tender, No other, No rebound or guarding, No soft, No splenomegaly, No surgical scars, No tender Extremities: No calf tenderness, No clubbing, No cyanosis, No edema, No normal pulses, No other, No palpable cord, No pitting pedal edema, No tenderness Results Result Diagram: 06/15/17 0445 06/15/17 0445 Results 24 hrs Laboratory Tests Test 06/14/17 10:48 06/14/17 13:00 06/14/17 15:30 06/14/17 16:00 Sodium Level 143 144 Potassium Level 5.8 H 5.4 H Chloride Level 101 102 Carbon Dioxide Level 32 H 34 H Anion Gap 16 13 Blood Urea Nitrogen 31 H 30 H Creatinine 0.85 0.84 Glucose Level 224 H 167 Lactic Acid Level 1.6 Calcium Level 8.0 L 8.1 L Total Bilirubin 0.9 Direct Bilirubin 0.00 Indirect Bilirubin 0.9 Aspartate Amino Transf (AST/SGOT) 18 Alanine Aminotransferase (ALT/SGPT) 31 Alkaline Phosphatase 44 Total Protein 5.4 L Albumin 3.0 L Globulin 2.40 Albumin/Globulin Ratio 1.25 Creatine Kinase 34 Creatine Kinase Index 7.1 Creatinine Kinase MB (Mass) 2.40 Troponin I 0.323 *H 0.298 *H Urine Color YELLOW Urine Clarity SLIGHTLY CLOUDY A Urine pH 5.0 Urine Specific [place] 1.017 Urine Ketones NEGATIVE Urine Nitrite NEGATIVE Urine Bilirubin NEGATIVE Urine Urobilinogen NEGATIVE Urine Leukocyte Esterase TRACE A Urine Microscopic RBC 135 H Urine Microscopic WBC 11 H Urine Mucus FEW A Urine Hemoglobin 3+ H Urine Random Creatinine 64.00 Urine Random Sodium 21 L Urine Glucose NEGATIVE Urine Total Protein 34.0 H Test 06/14/17 19:08 06/15/17 00:01 06/15/17 00:36 06/15/17 02:35 Activated Partial Thromboplast Time 54.3 H Troponin I 0.302 *H Bedside Glucose 207 Blood Gas Specimen Source Blood arterial Arterial Blood Date Drawn 06/15/2017 2:30:00 AM Arterial Blood pH (Temp corrected) 7.325 L Arterial Blood pCO2 (Temp correct) 56.4 H Arterial Blood pO2 (Temp corrected) 110.3 H Arterial Blood HCO3 28.7 H Arterial Blood Base Excess 2.1 Arterial Blood Oxygen Saturation 97.4 Slim Test N/A Arterial Blood Gas Puncture Site Right Brachial Arterial Blood Carboxyhemoglobin 0.3 Arterial Blood Methemoglobin 0.6 Blood Gas A-a O2 Differential 546.3 H Oxyhemoglobin Percent 96.5 Total Hemoglobin 9.1 L Blood Gas Temperature 37.0 Blood Gas Respiration Rate 16.0 Blood Gas Actual Respiration Rate 16 Blood Gas Modality VENT - AC FiO2 100.0 Blood Gas Tidal Volume 500.0 Blood Gas Low PEEP Setting 5.0 Blood Gas Notified Whom UP Blood Gas Notified Time 06/15/2017 2:42:00 AM Test 06/15/17 04:45 06/15/17 08:06 White Blood Count 23.5 H Red Blood Count 3.24 L Hemoglobin 8.8 L Hematocrit 29.8 L Mean Corpuscular Volume 92.0 Mean Corpuscular Hemoglobin 27.2 L Mean Corpuscular Hemoglobin Concent 29.5 L Red Cell Distribution Width 15.9 H Platelet Count 119 L Mean Platelet Volume 11.9 H Neutrophils % 93.6 H Lymphocytes % 1.2 L Monocytes % 3.8 Eosinophils % 0.0 Basophils % 0.1 Nucleated Red Blood Cells % 0.0 Neutrophils # 21.9 H Lymphocytes # 0.3 L Monocytes # 0.9 Eosinophils # 0.0 Basophils # 0.0 Nucleated Red Blood Cells # 0.0 Sodium Level 146 H Potassium Level 5.3 H Chloride Level 104 Carbon Dioxide Level 31 Anion Gap 16 Blood Urea Nitrogen 31 H Creatinine 1.02 Glucose Level 270 #H Calcium Level 8.3 L Phosphorus Level 4.5 Magnesium Level 2.3 Total Bilirubin 1.2 Direct Bilirubin 0.00 Indirect Bilirubin 1.2 H Aspartate Amino Transf (AST/SGOT) 109 #H Alanine Aminotransferase (ALT/SGPT) 85 H Alkaline Phosphatase 52 Total Protein 5.4 L Albumin 2.8 L Globulin 2.60 Albumin/Globulin Ratio 1.07 Troponin I 0.337 *H Medications Medications Current Medications Sodium Chloride (NS) 1,000 ml @ 75 mls/hr [id number] IV Last administered on t 02:40; Admin Dose 75 MLS/HR; Start 06/14/17 at 02:52 Ondansetron HCl (Zofran Inj) 4 mg Q6H PRN IV NAUSEA AND/OR VOMITING; Start at 03:00 Acetaminophen (Tylenol Tab) 650 mg Q6H PRN PO PAIN LEVEL 1-3 OR FEVER; Start at 03:00 Pantoprazole 40 mg 40 mg DAILY@06 IV Last administered on 06/15/17 06:04; Admin Dose 40 MG; Start 06/14/17 at 06:00 Cefepime HCl 50 ml @ 100 mls/hr Q8 IVPB Last administered on 06/15/17 06:21; Admin Dose 100 MLS/HR; Start 06/14/17 at 07:30 Levofloxacin/ Dextrose 150 ml @ 100 mls/hr Q24H IVPB Last administered on 06:20; Admin Dose 100 MLS/HR; Start 06/14/17 at 03:30 Sodium Chloride 1,000 ml @ 80 mls/hr [id number] IV ; Start 06/14/17 at 09:00 Vancomycin HCl/ Sodium Chloride (Vancocin/NS) 250 ml @ 83.333 mls/ hr Q24H IVPB Last administered on 06/14/17 20:24; Admin Dose 83.333 MLS/HR; Start at 20:00 Miscellaneous Information (Pending Santyl Order For Wound Care) This patient meza... PRN PRN XX WOUND CARE; Start 06/14/17 at 15:00 Collagenase (Santyl) 1 applic DAILY TOP ; Start 06/15/17 at 09:00 Collagenase 1 applic 1 applic PRN PRN TOP WOUND CARE; Start 06/14/17 at 16:00 Norepinephrine 250 ml @ 1.875 mls/ hr TITRATE IV Last administered on 02:30; Admin Dose 3.75 MLS/HR; Start 06/15/17 at 02:00 Amiodarone HCl 900 mg/Dextrose 500 ml @ 0 mls/hr Q0M IV Last administered on 02:30; Admin Dose 1 MLS/HR; Start 06/15/17 at 02:30; Stop 06/16/17 at 02:29 Propofol (Diprivan) 100 ml @ 2.55 mls/hr Q12H IV Last administered on 04:30; Admin Dose 2.55 MLS/HR; Start 06/15/17 at 04:30 Diagnostic Test (Pha) (Accu-Chek) 1 ea 02 XX ; Start 06/16/17 at 02:00 Miscellaneous Information 1 ea NOTE XX ; Start 06/15/17 at 07:00 Glucose (Glutose) 15 gm Q15M PRN PO DECREASED GLUCOSE; Start 06/15/17 at 07:00 Glucose (Glutose) 22.5 gm Q15M PRN PO DECREASED GLUCOSE; Start 06/15/17 at 07:00 Dextrose (D50w Syringe) 25 ml Q15M PRN IV DECREASED GLUCOSE; Start 06/15/17 at 07:00 Dextrose (D50w Syringe) 50 ml Q15M PRN IV DECREASED GLUCOSE; Start 06/15/17 at 07:00 Glucagon (Glucagen) 1 mg Q15M PRN IM DECREASED GLUCOSE; Start 06/15/17 at 07:00 Glucose (Glutose) 15 gm Q15M PRN BUCCAL DECREASED GLUCOSE; Start 06/15/17 at 07: 00 Insulin Aspart (Novolog Insulin Pen) NOVOLOG *MODERATE* ALGORI... Q4 SC ; Start 06/15/17 at 09:00 CLAUDE ROMERO Jun 15, 2017 09:38
[2017-06-15] MEDS ORDERED: ALBUTEROL/IPRATROPIUM (NEB) 3 ML AMP HHN PRN (10:00)
[2017-06-15] MEDS: ACCU-CHEK XX SCH ×14 (10:00→23:00)
[2017-06-15] MEDS ORDERED: LIDOCAINE 1% (MPF) 5 ML VIAL SC ONE (10:30)
[2017-06-15] MEDS ORDERED: FAMOTIDINE 20 MG INJ IV SCH (10:30)
[2017-06-15] MEDS ORDERED: INSULIN HUMAN REGULAR 100 UNIT in SOD CHLORIDE 0.9% 99 ML IV SCH (11:00)
[2017-06-15] MEDS: LEVETIRACETAM 1000 MG (PMX) 100 ML IVPB SCH ×2 (11:25→20:39)
--- NOTE | 2017-06-15 11:45 | CONS ---
Date/Time of Note Date/Time of Note DATE: 06/15/17 TIME: 11:39 Assessment/Plan Assessment/Plan Chief Complaint/Hosp Course 81 yo male with recent admission for pneumonia requiring intubation readmitted after rehab stay with UTI/PNA, coded overnight with ROSC in 20 mins intubated on abx being managed in the ICU with post anoxic seizures noted. Recommendations: MRI Brain w/o contrast continue Keppra 1 g BID EEG pending cefepime may often lower seizure threshold if possible to switch antibiotics will follow, GOC discussion with family Problems: Consultation Date/Type/Reason Admit Date/Time Jun 14, 2017 at 02:51 Date of Consultation: Jun 15, 2017 Type of Consultation: Neurology Reason for Consultation eval for hypoxic injury, cardiac arrest seizures Referring Provider: KONSTANTIN VÁZQUEZ Hx of Present Illness 81 yo male with history of COPD, previous lung surgery 20 years ago, HTN admitted to [facility] approximately 2-3 weeks ago with severe pneumonia requiring intubation was treated and extubated tx to rehab now admitted with increased fatigue, fevers, chills worsening SOB now intubated in the ICU admitted with septic shock, PNA and UTI. Overnight he had cardiac arrest received ROSC for 20 mins, was witnessed to have seizure activity. Keppra 1 g BID was initiated. Subjective hx not possible: pt non-verbal, pt critical Past Medical History as per HPI Social History Smoking Status: Never smoker Exam/Review of Systems Vital Signs Vitals Vital Signs Date Time Temp Pulse Resp B/P Pulse Ox O2 Delivery O2 Flow Rate FiO2 06/15/17 11:00 58 16 79/40 100 Mechanical Ventilator 06/15/17 08:00 60 06/15/17 07:30 98.7 06/14/17 12:30 15.0 Intake and Output 06/14/17 06/14/17 06/15/17 15:00 23:00 07:00 Intake Total 270 ml 472.0 ml 721.025 ml Output Total 640 ml 445 ml 241 ml Balance -370 ml 27.0 ml 480.025 ml Exam intubated, examined off sedation unable to open eyes spontaneously he does move occasionally when noxious applied CN: 1-2 mm sluggish, corneals sluggish gag present Motor: brief withdrawal in UE to noxious in plane of the bed, withdraws LE in plane of the bed to noxious stimuli Reflexes 1+ toes downgoing Results Result Diagram: 06/15/17 0445 06/15/17 0445 Results 24 hrs Laboratory Tests Test 06/14/17 13:00 06/14/17 15:30 06/14/17 16:00 06/14/17 19:08 Creatine Kinase 34 Creatine Kinase Index 7.1 Creatinine Kinase MB (Mass) 2.40 Troponin I 0.323 *H 0.298 *H Urine Color YELLOW Urine Clarity SLIGHTLY CLOUDY A Urine pH 5.0 Urine Specific [place] 1.017 Urine Ketones NEGATIVE Urine Nitrite NEGATIVE Urine Bilirubin NEGATIVE Urine Urobilinogen NEGATIVE Urine Leukocyte Esterase TRACE A Urine Microscopic RBC 135 H Urine Microscopic WBC 11 H Urine Mucus FEW A Urine Hemoglobin 3+ H Urine Random Creatinine 64.00 Urine Random Sodium 21 L Urine Glucose NEGATIVE Urine Total Protein 34.0 H Sodium Level 144 Potassium Level 5.4 H Chloride Level 102 Carbon Dioxide Level 34 H Anion Gap 13 Blood Urea Nitrogen 30 H Creatinine 0.84 Glucose Level 167 Calcium Level 8.1 L Activated Partial Thromboplast Time 54.3 H Test 06/15/17 00:01 06/15/17 00:36 06/15/17 02:35 06/15/17 04:45 Troponin I 0.302 *H Bedside Glucose 207 Blood Gas Specimen Source Blood arterial Arterial Blood Date Drawn 06/15/2017 2:30:00 AM Arterial Blood pH (Temp corrected) 7.325 L Arterial Blood pCO2 (Temp correct) 56.4 H Arterial Blood pO2 (Temp corrected) 110.3 H Arterial Blood HCO3 28.7 H Arterial Blood Base Excess 2.1 Arterial Blood Oxygen Saturation 97.4 Slim Test N/A Arterial Blood Gas Puncture Site Right Brachial Arterial Blood Carboxyhemoglobin 0.3 Arterial Blood Methemoglobin 0.6 Blood Gas A-a O2 Differential 546.3 H Oxyhemoglobin Percent 96.5 Total Hemoglobin 9.1 L Blood Gas Temperature 37.0 Blood Gas Respiration Rate 16.0 Blood Gas Actual Respiration Rate 16 Blood Gas Modality VENT - AC FiO2 100.0 Blood Gas Tidal Volume 500.0 Blood Gas Low PEEP Setting 5.0 Blood Gas Notified Whom UP Blood Gas Notified Time 06/15/2017 2:42:00 AM White Blood Count 23.5 H Red Blood Count 3.24 L Hemoglobin 8.8 L Hematocrit 29.8 L Mean Corpuscular Volume 92.0 Mean Corpuscular Hemoglobin 27.2 L Mean Corpuscular Hemoglobin Concent 29.5 L Red Cell Distribution Width 15.9 H Platelet Count 119 L Mean Platelet Volume 11.9 H Neutrophils % 93.6 H Lymphocytes % 1.2 L Monocytes % 3.8 Eosinophils % 0.0 Basophils % 0.1 Nucleated Red Blood Cells % 0.0 Neutrophils # 21.9 H Lymphocytes # 0.3 L Monocytes # 0.9 Eosinophils # 0.0 Basophils # 0.0 Nucleated Red Blood Cells # 0.0 Sodium Level 146 H Potassium Level 5.3 H Chloride Level 104 Carbon Dioxide Level 31 Anion Gap 16 Blood Urea Nitrogen 31 H Creatinine 1.02 Glucose Level 270 #H Calcium Level 8.3 L Phosphorus Level 4.5 Magnesium Level 2.3 Total Bilirubin 1.2 Direct Bilirubin 0.00 Indirect Bilirubin 1.2 H Aspartate Amino Transf (AST/SGOT) 109 #H Alanine Aminotransferase (ALT/SGPT) 85 H Alkaline Phosphatase 52 Total Protein 5.4 L Albumin 2.8 L Globulin 2.60 Albumin/Globulin Ratio 1.07 Test 06/15/17 08:06 06/15/17 09:18 06/15/17 11:26 Troponin I 0.337 *H Bedside Glucose 295 H 223 H Medications Medications Current Medications Ondansetron HCl (Zofran Inj) 4 mg Q6H PRN IV NAUSEA AND/OR VOMITING; Start at 03:00 Acetaminophen (Tylenol Tab) 650 mg Q6H PRN PO PAIN LEVEL 1-3 OR FEVER; Start at 03:00 Pantoprazole 40 mg 40 mg DAILY@06 IV Last administered on 06/15/17 06:04; Admin Dose 40 MG; Start 06/14/17 at 06:00 Levofloxacin/ Dextrose 150 ml @ 100 mls/hr Q24H IVPB Last administered on 06:20; Admin Dose 100 MLS/HR; Start 06/14/17 at 03:30 Sodium Chloride 1,000 ml @ 80 mls/hr [id number] IV ; Start 06/14/17 at 09:00 Vancomycin HCl/ Sodium Chloride (Vancocin/NS) 250 ml @ 83.333 mls/ hr Q24H IVPB Last administered on 06/14/17 20:24; Admin Dose 83.333 MLS/HR; Start at 20:00 Miscellaneous Information (Pending Santyl Order For Wound Care) This patient meza... PRN PRN XX WOUND CARE; Start 06/14/17 at 15:00 Collagenase (Santyl) 1 applic DAILY TOP Last administered on 06/15/17 09:19; Admin Dose 1 APPLIC; Start 06/15/17 at 09:00 Collagenase 1 applic 1 applic PRN PRN TOP WOUND CARE; Start 06/14/17 at 16:00 Norepinephrine 250 ml @ 1.875 mls/ hr TITRATE IV Last administered on 11:36; Admin Dose 2.04 MLS/HR; Start 06/15/17 at 02:00 Amiodarone HCl 900 mg/Dextrose 500 ml @ 0 mls/hr Q0M IV Last administered on 02:30; Admin Dose 1 MLS/HR; Start 06/15/17 at 02:30; Stop 06/16/17 at 02:29 Propofol (Diprivan) 100 ml @ 2.55 mls/hr Q12H IV Last administered on 04:30; Admin Dose 2.55 MLS/HR; Start 06/15/17 at 04:30 Miscellaneous Information 1 ea NOTE XX ; Start 06/15/17 at 07:00 Glucose (Glutose) 15 gm Q15M PRN PO DECREASED GLUCOSE; Start 06/15/17 at 07:00 Glucose (Glutose) 22.5 gm Q15M PRN PO DECREASED GLUCOSE; Start 06/15/17 at 07:00 Glucagon (Glucagen) 1 mg Q15M PRN IM DECREASED GLUCOSE; Start 06/15/17 at 07:00 Glucose (Glutose) 15 gm Q15M PRN BUCCAL DECREASED GLUCOSE; Start 06/15/17 at 07: 00 Diagnostic Test (Pha) (Accu-Chek) 1 ea Q1H XX Last administered on 06/15/17 11: 25; Admin Dose 1 EA; Start 06/15/17 at 10:00 Dextrose (D50w Syringe) 25 ml Q15M PRN IV Till BS 80 mg/dL or above x2; Start 06/15/17 at 10:00 Dextrose 50 ml 50 ml Q15M PRN IV Till BS 80 mg/dL or above x2; Start 06/15/17 at 10:00 Levetiracetam 100 ml @ 400 mls/hr Q12 IVPB Last administered on 06/15/17t 11:25 ; Admin Dose 400 MLS/HR; Start 06/15/17 at 11:00 Cefepime HCl (Maxipime 2gm/50 ml (Pmx)) 50 ml @ 100 mls/hr Q12 IVPB ; Start 06/15/17 at 21:00 LAINE CONNORS MD Jun 15, 2017 11:45
--- NOTE | 2017-06-15 11:46 | PN ---
DATE: 06/15/2017 SUBJECTIVE: Patient coded last night, resuscitated for 20 minutes. Also with significant possible upper GI bleeding/hemoptysis, placed on amiodarone drip secondary to the code. Still having upper GI bleeding. Also with questionable new onset of seizure activity. Seen by renal and pulmonary teams this morning. Patient was also intubated. OBJECTIVE: VITAL SIGNS: Afebrile. Pulse is 54-84, blood pressure is 102- 124 systolic over 53-49 diastolic, satting on 100 percent mechanical ventilation, FiO2 60. GENERAL: Patient is lying in bed, but opens eyes occasionally, still on sedation and intubated. HEENT: Patient opens eyes, reactive. NECK: Supple. No thyromegaly. LUNGS: Distant breath sounds bilaterally. CARDIOVASCULAR: S1, S2 heard. No rubs or gallops. ABDOMEN: Soft, nontender, nondistended. Normal bowel sounds. No rebound or guarding. MUSCULOSKELETAL: No lower extremity edema bilaterally. NEUROLOGIC: Unable to fully assess because patient is intubated and sedated. LABORATORY AND DIAGNOSTIC DATA: WBC 23.5, hemoglobin 8.8, hematocrit 29.8, platelets of 119. Sodium 146, potassium 5.3, chloride 104, CO2 31, BUN of 31, creatinine 1.02, glucose 270. His AST is a little high at 109, ALT is a little high at 85, indirect bilirubin is 1.2, direct is normal. His troponin is 0.337, the latest. Chest x-ray was done this morning. It shows dense consolidation of the right lung with right pleural effusion. No significant interval change. Findings suggesting pulmonary vascular congestion. Interstitial edema with small pleural effusion, but no significant interval change. ASSESSMENT AND PLAN: An 81-year-old male, who presents with sepsis secondary to urinary tract infection, pneumonia with whiteout of the right lung with a prior history of lung cancer, status post lobectomy, now with significant possible upper gastrointestinal bleeding, status post code event earlier this morning, now intubated and sedated with possible new-onset seizure activities. 1. Sepsis. Likely source pneumonia and urinary tract urinary tract infection. Continue broad-spectrum antibiotics. Tylenol p.r.n. pain and fevers. - Follow up culture results. Consider ID consult. 2. Possible arrest. Again, patient coded last night. Heart rate responded to amiodarone drip, now intubated. - Follow up Cardiology recommendations. Heparin drip has been stopped. 3. Hemoptysis. Again, patient has possible upper gastrointestinal bleed and hematemesis versus hemoptysis, unclear source. Upon suctioning, patient is still having bleeding present. Again, heparin drip has been stopped. Hemoglobin is presently stable this morning. - Continue to monitor for now. Again, patient has history of lung cancer, prior lobectomy. This could be the source. Also need to consider possiblegastrointestinal source so consider GI consult as well. -Avoid all anticoagulants. 4. Respiratory failure. Again, patient coded last night, intubated. The patient also has a prior history of lung cancer status post lobectomy in the past. -Follow Pulmonary recommendations. - We will continue antibiotics and mechanical ventilation. - Monitor oxygen levels. 5. Hyponatremia and hyperkalemia. Appreciate renal consult. Again, free water flushes have been started. Also have held TOSIN- inhibitor in the last 24 hours. -Continue to monitor levels of sodium and potassium as well. 6. Ngi-VV-cyzxbsxzb myocardial infarction. Again, appreciate Cardiology recommendations given the code event and the patient's possible upper gastrointestinal bleed versus hemoptysis. - Again we are holding heparin drip for now. - Monitor heart rate.Troponin is still elevated, however. -When patient is more stable, he may need may benefit from heart catheterization. 7. Type 2 diabetes. Again, sugars are somewhat elevated in the high 200 range. A1c is still pending. -We will start the patient on sliding scale given his arrest event and severe sepsis/shock. 8. History of chronic obstructive pulmonary disease. - Carito p.r.n. 9. History of benign prostatic hypertrophy . - Continue to monitor for now. 10. Gastrointestinal prophylaxis. Add H2 blair. Critical care time spent today on patient, 50 minutes. Dictated By: Maynor Ewing MD /ke/fabrizio /Document#: [id number] CARA
[2017-06-15] MEDS ORDERED: TIGECYCLINE 50 MG in SOD CHLORIDE 0.9% 100 ML IVPB SCH (13:00)
--- NOTE | 2017-06-15 14:33 | CONS ---
Date/Time of Note Date/Time of Note DATE: 06/15/17 TIME: 14:28 Assessment/Plan Assessment/Plan Additional Assessment/Plan Cardiopulmonary arrest Shock Respiratory failure, vent dependent Preserved ejection fraction Sepsis Possible pneumonia with lung mass COPD on oxygen -Patient status post cardiopulmonary arrest with hypoxia leading to bradycardia. Currently on IV pressor. Maintain SBP greater than 90 and/or map above 60. Troponins are minimally elevated and trending down, likely secondary to sepsis and respiratory failure. Given chest compressions and evidence of bleeding, agree with stopping IV heparin. No antihypertensives at the current time given hypotension. Antibiotics as per primary team. Greater than 31 minutes of critical care time for patient's care. Consultation Date/Type/Reason Admit Date/Time Jun 14, 2017 at 02:51 Initial Consult Date 06/15/17 Type of Consultation: cv Referring Provider: KONSTANTIN VÁZQUEZ 24 HR Interval Summary Free Text/Dictation Discussion with nursing staff, patient with worsening hypoxia last night leading to bradycardia and cardiac arrest. ACLS protocol. Patient intubated. Code approximately 20 minutes. Currently on IV pressors Exam/Review of Systems Vital Signs Vitals Vital Signs Date Time Temp Pulse Resp B/P Pulse Ox O2 Delivery O2 Flow Rate FiO2 06/15/17 13:00 62 16 76/40 100 Mechanical Ventilator 06/15/17 12:00 98.0 06/15/17 11:35 50 06/14/17 12:30 15.0 Intake and Output 06/14/17 06/14/17 06/15/17 15:00 23:00 07:00 Intake Total 270 ml 472.0 ml 721.025 ml Output Total 640 ml 445 ml 241 ml Balance -370 ml 27.0 ml 480.025 ml Exam Sedated and intubated, undergoing PICC line placement Head: normocephalic ENMT: intubated Respiratory: other (Coarse breath sounds with bilateral scattered rhonchi, no wheezing) Cardiovascular: other (S1-S2 heard), regular rate and rhythm Gastrointestinal: bowel sounds, other (No grimacing with palpation), soft Extremities: edema Results Result Diagram: 06/15/17 0445 06/15/17 0445 Results 24 hrs Laboratory Tests Test 06/14/17 15:30 06/14/17 16:00 06/14/17 19:08 06/15/17 00:01 Urine Color YELLOW Urine Clarity SLIGHTLY CLOUDY A Urine pH 5.0 Urine Specific [place] 1.017 Urine Ketones NEGATIVE Urine Nitrite NEGATIVE Urine Bilirubin NEGATIVE Urine Urobilinogen NEGATIVE Urine Leukocyte Esterase TRACE A Urine Microscopic RBC 135 H Urine Microscopic WBC 11 H Urine Mucus FEW A Urine Hemoglobin 3+ H Urine Random Creatinine 64.00 Urine Random Sodium 21 L Urine Glucose NEGATIVE Urine Total Protein 34.0 H Sodium Level 144 Potassium Level 5.4 H Chloride Level 102 Carbon Dioxide Level 34 H Anion Gap 13 Blood Urea Nitrogen 30 H Creatinine 0.84 Glucose Level 167 Calcium Level 8.1 L Troponin I 0.298 *H 0.302 *H Activated Partial Thromboplast Time 54.3 H Test 06/15/17 00:36 06/15/17 02:35 06/15/17 04:45 06/15/17 08:06 Bedside Glucose 207 Blood Gas Specimen Source Blood arterial Arterial Blood Date Drawn 06/15/2017 2:30:00 AM Arterial Blood pH (Temp corrected) 7.325 L Arterial Blood pCO2 (Temp correct) 56.4 H Arterial Blood pO2 (Temp corrected) 110.3 H Arterial Blood HCO3 28.7 H Arterial Blood Base Excess 2.1 Arterial Blood Oxygen Saturation 97.4 Slim Test N/A Arterial Blood Gas Puncture Site Right Brachial Arterial Blood Carboxyhemoglobin 0.3 Arterial Blood Methemoglobin 0.6 Blood Gas A-a O2 Differential 546.3 H Oxyhemoglobin Percent 96.5 Total Hemoglobin 9.1 L Blood Gas Temperature 37.0 Blood Gas Respiration Rate 16.0 Blood Gas Actual Respiration Rate 16 Blood Gas Modality VENT - AC FiO2 100.0 Blood Gas Tidal Volume 500.0 Blood Gas Low PEEP Setting 5.0 Blood Gas Notified Whom UP Blood Gas Notified Time 06/15/2017 2:42:00 AM White Blood Count 23.5 H Red Blood Count 3.24 L Hemoglobin 8.8 L Hematocrit 29.8 L Mean Corpuscular Volume 92.0 Mean Corpuscular Hemoglobin 27.2 L Mean Corpuscular Hemoglobin Concent 29.5 L Red Cell Distribution Width 15.9 H Platelet Count 119 L Mean Platelet Volume 11.9 H Neutrophils % 93.6 H Lymphocytes % 1.2 L Monocytes % 3.8 Eosinophils % 0.0 Basophils % 0.1 Nucleated Red Blood Cells % 0.0 Neutrophils # 21.9 H Lymphocytes # 0.3 L Monocytes # 0.9 Eosinophils # 0.0 Basophils # 0.0 Nucleated Red Blood Cells # 0.0 Sodium Level 146 H Potassium Level 5.3 H Chloride Level 104 Carbon Dioxide Level 31 Anion Gap 16 Blood Urea Nitrogen 31 H Creatinine 1.02 Glucose Level 270 #H Hemoglobin A1c 5.9 Calcium Level 8.3 L Phosphorus Level 4.5 Magnesium Level 2.3 Total Bilirubin 1.2 Direct Bilirubin 0.00 Indirect Bilirubin 1.2 H Aspartate Amino Transf (AST/SGOT) 109 #H Alanine Aminotransferase (ALT/SGPT) 85 H Alkaline Phosphatase 52 Total Protein 5.4 L Albumin 2.8 L Globulin 2.60 Albumin/Globulin Ratio 1.07 Troponin I 0.337 *H Test 06/15/17 09:18 06/15/17 10:31 06/15/17 11:26 06/15/17 12:07 Bedside Glucose 295 H 223 H 204 Troponin I 0.381 *H Test 06/15/17 13:49 Bedside Glucose 156 Medications Medications Current Medications Ondansetron HCl (Zofran Inj) 4 mg Q6H PRN IV NAUSEA AND/OR VOMITING; Start at 03:00 Acetaminophen (Tylenol Tab) 650 mg Q6H PRN PO PAIN LEVEL 1-3 OR FEVER; Start at 03:00 Pantoprazole 40 mg 40 mg DAILY@06 IV Last administered on 06/15/17 06:04; Admin Dose 40 MG; Start 06/14/17 at 06:00 Sodium Chloride 1,000 ml @ 80 mls/hr [id number] IV ; Start 06/14/17 at 09:00 Vancomycin HCl/ Sodium Chloride (Vancocin/NS) 250 ml @ 83.333 mls/ hr Q24H IVPB Last administered on 06/14/17 20:24; Admin Dose 83.333 MLS/HR; Start at 20:00 Miscellaneous Information (Pending Santyl Order For Wound Care) This patient meza... PRN PRN XX WOUND CARE; Start 06/14/17 at 15:00 Collagenase (Santyl) 1 applic DAILY TOP Last administered on 06/15/17 09:19; Admin Dose 1 APPLIC; Start 06/15/17 at 09:00 Collagenase 1 applic 1 applic PRN PRN TOP WOUND CARE; Start 06/14/17 at 16:00 Norepinephrine 250 ml @ 1.875 mls/ hr TITRATE IV Last administered on 11:36; Admin Dose 2.04 MLS/HR; Start 06/15/17 at 02:00 Amiodarone HCl 900 mg/Dextrose 500 ml @ 0 mls/hr Q0M IV Last administered on 02:30; Admin Dose 1 MLS/HR; Start 06/15/17 at 02:30; Stop 06/16/17 at 02:29 Propofol (Diprivan) 100 ml @ 2.55 mls/hr Q12H IV Last administered on 04:30; Admin Dose 2.55 MLS/HR; Start 06/15/17 at 04:30 Miscellaneous Information 1 ea NOTE XX ; Start 06/15/17 at 07:00 Glucose (Glutose) 15 gm Q15M PRN PO DECREASED GLUCOSE; Start 06/15/17 at 07:00 Glucose (Glutose) 22.5 gm Q15M PRN PO DECREASED GLUCOSE; Start 06/15/17 at 07:00 Glucagon (Glucagen) 1 mg Q15M PRN IM DECREASED GLUCOSE; Start 06/15/17 at 07:00 Glucose (Glutose) 15 gm Q15M PRN BUCCAL DECREASED GLUCOSE; Start 06/15/17 at 07: 00 Diagnostic Test (Pha) (Accu-Chek) 1 ea Q1H XX Last administered on 06/15/17 13: 53; Admin Dose 1 EA; Start 06/15/17 at 10:00 Dextrose (D50w Syringe) 25 ml Q15M PRN IV Till BS 80 mg/dL or above x2; Start 06/15/17 at 10:00 Dextrose 50 ml 50 ml Q15M PRN IV Till BS 80 mg/dL or above x2; Start 06/15/17 at 10:00 Levetiracetam 100 ml @ 400 mls/hr Q12 IVPB Last administered on 06/15/17 11:25 ; Admin Dose 400 MLS/HR; Start 06/15/17 at 11:00 Piperacillin Sod/ Tazobactam Sod (Zosyn 3.375gm/ 100 ml (Pmx)) 100 ml @ 200 mls /hr Q6 IVPB ; Start 06/15/17 at 14:30 IV Flush (NS 10 ml) 10 ml PRN PRN IV IV PROTOCOL; Start 06/15/17 at 14:30; Status CHACHAV Augie Encarnacion DO Jun 15, 2017 14:33
--- NOTE | 2017-06-15 14:37 | RADRPT ---
PROCEDURE: US guidance for PICC line CLINICAL INDICATION: PICC line placement TECHNIQUE: Multiple real-time images were acquired of the patient's arm utilizing a high resolutio n transducer. This was performed by the PICC line nurse for venous access. COMPARISON: None FINDINGS: Ultrasound guidance for PICC line placement. IMPRESSION: Ultrasound guidance for PICC line placement. RPTAT: AA .Spencer Lloyd MD, MD Date Time Electronically viewed and signed by .Spencer Lloyd MD, on 06/15/2017 14:36 .S/
[2017-06-15] MEDS: PIPER-TAZO 3.375 GM IV (PMX) 100 ML IVPB SCH ×2 (14:52→18:43)
--- NOTE | 2017-06-15 15:32 | RADRPT ---
PROCEDURE: XR Chest. CLINICAL INDICATION: Check PICC line position. TECHNIQUE: Single frontal view. COMPARISON: Prior study done earlier the same day. FINDINGS: There is a left arm PICC line with the tip in the mid superior vena cava. There is extensive air sp geoff disease throughout the right lung, unchanged. The endotracheal tube and nasogastric tube remain in satisfactory position. The heart size is normal. There is calcification in the aorta consistent with atherosclerosis. Priscila gical clips are present overlying the right side of the chest inferiorly. There is no pleural effusion. There is no pneumothorax. IMPRESSION: 1. Left arm PICC line tip in satisfactory position. 2. No other change from the prior study done earlier the same day. RPTAT: QQ .Juan Gutierrez MD, Date Time Electronically viewed and signed by .Juan Gutierrez MD, on 06/15/2017 15:31 .R/
[2017-06-15] MEDS ORDERED: SOD CHLORIDE 0.9% 100 ML ONE (20:07)
[2017-06-15] MEDS: VANCOMYCIN 1.5 GM in SOD CHLORIDE 0.9% 250 ML IVPB SCH (20:39)
[2017-06-15] MEDS ORDERED: CEFEPIME 2GM/50 ML (PMX) 50 ML IVPB SCH (21:00)
[2017-06-16] VITALS (84 sets, daily range): BP systolic 94–153; BP diastolic 36–66; PULSE 52–77; RESP 0–23
[2017-06-16] MEDS: ACCU-CHEK XX SCH ×25 (01:42→23:37)
[2017-06-16] MEDS ORDERED: ACCU-CHEK XX SCH (02:00)
[2017-06-16] MEDS: SOD CHLORIDE 0.9% 1,000 ML IV SCH ×2 (04:30→18:08)
[2017-06-16] MEDS: PROPOFOL 100 ML IV SCH ×2 (04:31→15:48)
[2017-06-16] MEDS: PANTOPRAZOLE 40 MG INJ IV SCH (05:31)
[2017-06-16 05:32] LABS: ABNORMAL IP MESSAGE 1; BASOPHILS % 0.1 % (0.0-2.0); EOSINOPHILS % 0.3 % (0.0-7.0); HEMATOCRIT 23.1 % (42.0-52.0); LYMPHOCYTES # 0.5 10^3/ul (0.8-2.9); LYMPHOCYTES % 3.2 % (15.0-51.0); MEAN CORPUSCULAR HEMOGLOBIN 26.5 pg (29.0-33.0); MEAN CORPUSCULAR HGB CONC 30.3 g/dl (32.0-37.0); MEAN CORPUSCULAR VOLUME 87.5 fl (82.0-101.0); MEAN PLATELET VOLUME 12.1 fl (7.4-10.4); MONOCYTE # 0.8 10^3/ul (0.3-0.9); MONOCYTES % 5.4 % (0.0-11.0); NEUTROPHIL # 12.8 10^3/ul (1.6-7.5); NEUTROPHILS % 90.4 % (39.0-77.0); PLATELET COUNT 122 10^3/UL (140-415); POSITIVE DIFF @See below; RED BLOOD COUNT 2.64 10^6/ul (4.70-6.10); RED CELL DISTRIBUTION WIDTH 15.9 % (11.5-14.5); WHITE BLOOD COUNT 14.1 10^3/ul (4.8-10.8)
[2017-06-16] MEDS: PIPER-TAZO 3.375 GM IV (PMX) 100 ML IVPB SCH ×5 (05:32→23:37)
[2017-06-16 06:17] LABS: ALBUMIN 2.3 g/dl (3.3-4.9); ALBUMIN/GLOBULIN RATIO 0.95; BILIRUBIN,INDIRECT 1.1 mg/dl (0-1.1); BILIRUBIN,TOTAL 1.1 mg/dl (0.2-1.3); CALCIUM 8.3 mg/dl (8.4-10.2); CREATININE 1.01 mg/dl (0.61-1.24); MAGNESIUM 2.3 mg/dl (1.7-2.5); PHOSPHORUS 2.1 mg/dl (2.5-4.9); POTASSIUM 3.7 mmol/L (3.5-5.1); TOTAL PROTEIN 4.7 g/dl (6.1-8.1)
--- NOTE | 2017-06-16 08:08 | PN ---
DATE: 06/16/2017 SUBJECTIVE DATA: The patient remains critically ill, on full ventilatory support. The patient has minimal neurologic response. Urinary output has been adequate. No other events noted. Patient did receive blood transfusion in continues to have low hemoglobin levels. OBJECTIVE DATA: VITAL SIGNS: Blood pressure 118/38, respirations 17, pulse 58, temperature 98.3. HEENT: Head is normocephalic. NECK: Supple. HEART: Regular rate. LUNGS: Show diminished breath sounds at the base. ABDOMEN: Soft, nontender to palpation. No rebound or guarding. EXTREMITIES: Negative for clubbing, cyanosis, no edema. DERMATOLOGIC: Clean. No rashes. MUSCULOSKELETAL: No joint effusion. NEUROLOGIC: No change in exam. MEDICATION: Reviewed . LABORATORY AND DIAGNOSTIC DATA: Reveals a white count of 14.1, hemoglobin 7.0, crit of 23.1, platelet count 122. Sodium 145, potassium 3.7, chloride 105, BUN 35, creatinine 1.01. IMAGING: Reviewed. Chest x-ray reviewed. ASSESSMENT AND PLAN: 1. Nonoliguric acute kidney injury on top of chronic kidney disease. Etiology secondary to hemodynamics, sepsis. The patient's renal function has improved. At this point, continue current treatment plan and supportive care, renally dose all meds. 2. Chronic kidney disease. The patient's renal ultrasound shows evidence of echogenic kidneys consistent with chronic kidney disease. The patient is currently in acute kidney injury as stated above. Continue current treatment plan. 3. Hypokalemia. Etiology is likely multifactorial from TOSIN inhibitor. Now resolved. Continue to monitor. 4. Anemia. Monitor H and H levels. The patient had a drop in H and H requiring blood transfusion. Underlying source of anemia is unclear. Questionable bleed. Continue to monitor closely. Consider a CT of abdomen and pelvis. 5. Mineral bone disorder. Monitor calcium and phosphorus levels. 6. Hyponatremia, improved. 7. Status post code arrest. 8. Severe sepsis secondary to pneumonia and urinary tract infection. Continue current antibiotic regimen. 9. Ventilatory-dependent respiratory failure. Vent settings reviewed. ABGs reviewed. 10. Acute encephalopathy, etiology is toxic metabolic. Continue to monitor. 11. Elevated troponin. Possible [id number] myocardial infarction. Continue current medical management. Heparin drip has been held due to anemia. We will monitor closely. Follow up with Cardiology. 12. History of right lung cancer, status post resection. Dictated By: David Brand DO /ke/fabrizio /Document#: [id number]
[2017-06-16] MEDS: LEVETIRACETAM 1000 MG (PMX) 100 ML IVPB SCH ×2 (08:30→20:53)
[2017-06-16] MEDS ORDERED: POTASSIUM PHOSPHATE 20 MEQ in SOD CHLORIDE 0.9% 250 ML IVPB ONE (09:00)
[2017-06-16] MEDS: COLLAGENASE 30 GM TUBE TOP SCH (09:12)
--- NOTE | 2017-06-16 10:35 | PN ---
Date/Time of Note Date/Time of Note DATE: 06/16/17 TIME: 10:29 Assessment/Plan VTE Prophylaxis VTE Prophylaxis Intervention: contraindicated VTE Contraindication Reason: bleeding Lines/Catheters IV Catheter Type (from Nrs): PICC Line Central line still needed: Yes Urinary Cath still in place: Yes Reason Cath still needed: urinary retention Assessment/Plan Chief Complaint/Hosp Course ASSESSMENT AND PLAN: An 81-year-old male, who presents with sepsis secondary to urinary tract infection, pneumonia with whiteout of the right lung with a prior history of lung cancer, status post lobectomy, with significant possible upper gastrointestinal bleeding, status post code event 24 hours ago, intubated and sedated with possible new-onset seizure activities. 1. Sepsis. Likely source pneumonia and urinary tract urinary tract infection. On pressor support. - Continue broad-spectrum antibiotics. Tylenol p.r.n. pain and fevers. - Follow up culture results. Consider ID consult. 2. Likely cardiac arrest -patient coded 24 hours ago. - Follow up Cardiology recommendations. Heparin drip has been stopped. -MRI of the brain is pending. Follow-up neurology recommendations. -Continue Keppra for seizure prophylaxis 3. Hemoptysis. Again, patient has possible upper gastrointestinal bleed and hematemesis versus hemoptysis, unclear source. Again, patient has history of lung cancer, prior lobectomy. This could be the source? Hemoglobin also dropped in last 24 hours. Again, heparin drip has been stopped. - Continue to monitor for now. -Will also get GI consult. -Avoid all anticoagulants. -We will order for blood transfusion today as well. Follow-up occult test. 4. Respiratory failure. Again, patient coded,intubated. The patient also has a prior history of lung cancer status post lobectomy in [facility]. -Follow Pulmonary recommendations. - We will continue antibiotics and mechanical ventilation. - Monitor oxygen levels. 5. Hyponatremia and hyperkalemia. Appreciate renal consult. Again, free water flushes have been started. Also have held TOSIN- inhibitor -Continue to monitor levels of sodium and potassium as well. 6. Eby-HB-qnrcaqqnl myocardial infarction. Again, appreciate Cardiology recommendations given the code event and the patient's possible upper gastrointestinal bleed versus hemoptysis. - Again we are holding heparin drip - Monitor heart rate.Troponin is still elevated -When patient is more stable, he may need may benefit from heart catheterization. 7. Type 2 diabetes. A1c is still pending. -Continue insulin drip for now. 8. History of chronic obstructive pulmonary disease. - DuJaxbs p.r.n. 9. History of benign prostatic hypertrophy . - Continue to monitor for now. 10. Gastrointestinal prophylaxis - H2 blair. Critical care time spent today on patient, 50 minutes. Problems: Subjective 24 Hr Interval Summary Free Text/Dictation Patient still intubated,on pressor support. Not able to get MRI of the brain last night secondary to hypoxia. Seen by neurology team. Per nursing staff, no seizure activities overnight. Exam/Review of Systems Vital Signs Vitals Vital Signs Date Time Temp Pulse Resp B/P Pulse Ox O2 Delivery O2 Flow Rate FiO2 06/16/17 08:00 59 06/16/17 06:45 17 118/38 100 06/16/17 06:15 98.3 06/16/17 06:00 Mechanical Ventilator 06/16/17 05:00 40 06/14/17 12:30 15.0 Intake and Output 06/15/17 06/15/17 06/16/17 15:00 23:00 07:00 Intake Total 1273.990 ml 1672.245 ml 1369.52 ml Output Total 165 ml 145 ml 220 ml Balance 1108.990 ml 1527.245 ml 1149.52 ml Exam GENERAL: Patient is lying in bed,intubated. HEENT: Unable to fully assess today. NECK: Supple. No thyromegaly. LUNGS: Distant breath sounds bilaterally. CARDIOVASCULAR: S1, S2 heard. No rubs or gallops. ABDOMEN: Soft, nontender, nondistended. Normal bowel sounds. No rebound or guarding. MUSCULOSKELETAL: No lower extremity edema bilaterally. NEUROLOGIC: Unable to fully assess because patient is intubated and sedated. Results Result Diagram: 06/16/17 0430 06/16/17 0430 Results 24 hrs Laboratory Tests Test 06/15/17 10:31 06/15/17 11:26 06/15/17 12:07 06/15/17 13:49 Troponin I 0.381 *H Bedside Glucose 223 H 204 156 Test 06/15/17 14:49 06/15/17 15:34 06/15/17 16:58 06/15/17 17:27 Bedside Glucose 161 143 182 Troponin I 0.295 *H Test 06/15/17 17:53 06/15/17 18:59 06/15/17 20:43 06/15/17 21:31 Bedside Glucose 141 131 138 126 Test 06/15/17 23:36 06/16/17 01:00 06/16/17 01:45 06/16/17 03:53 Bedside Glucose 133 134 130 Troponin I 0.237 *H Test 06/16/17 04:30 06/16/17 05:40 06/16/17 06:47 06/16/17 08:27 White Blood Count 14.1 #H Red Blood Count 2.64 L Hemoglobin 7.0 #L Hematocrit 23.1 #L Mean Corpuscular Volume 87.5 Mean Corpuscular Hemoglobin 26.5 L Mean Corpuscular Hemoglobin Concent 30.3 L Red Cell Distribution Width 15.9 H Platelet Count 122 L Mean Platelet Volume 12.1 H Neutrophils % 90.4 H Lymphocytes % 3.2 L Monocytes % 5.4 Eosinophils % 0.3 Basophils % 0.1 Nucleated Red Blood Cells % 0.0 Neutrophils # 12.8 H Lymphocytes # 0.5 L Monocytes # 0.8 Eosinophils # 0.0 Basophils # 0.0 Nucleated Red Blood Cells # 0.0 Sodium Level 145 H Potassium Level 3.7 Chloride Level 104 Carbon Dioxide Level 32 H Anion Gap 13 Blood Urea Nitrogen 35 H Creatinine 1.01 Glucose Level 109 # Calcium Level 8.3 L Phosphorus Level 2.1 #L Magnesium Level 2.3 Total Bilirubin 1.1 Direct Bilirubin 0.00 Indirect Bilirubin 1.1 Aspartate Amino Transf (AST/SGOT) 23 # Alanine Aminotransferase (ALT/SGPT) 67 Alkaline Phosphatase 49 Total Protein 4.7 L Albumin 2.3 L Globulin 2.40 Albumin/Globulin Ratio 0.95 Bedside Glucose 120 124 133 Test 06/16/17 10:11 Bedside Glucose 120 Medications Medications Current Medications Ondansetron HCl (Zofran Inj) 4 mg Q6H PRN IV NAUSEA AND/OR VOMITING; Start at 03:00 Acetaminophen (Tylenol Tab) 650 mg Q6H PRN PO PAIN LEVEL 1-3 OR FEVER; Start at 03:00 Pantoprazole 40 mg 40 mg DAILY@06 IV Last administered on 06/16/17t 05:31; Admin Dose 40 MG; Start 06/14/17 at 06:00 Sodium Chloride 1,000 ml @ 80 mls/hr [id number] IV Last administered on 06/16/17 04:30; Admin Dose 80 MLS/HR; Start 06/14/17 at 09:00 Vancomycin HCl/ Sodium Chloride (Vancocin/NS) 250 ml @ 83.333 mls/ hr Q24H IVPB Last administered on 06/15/17 20:39; Admin Dose 83.333 MLS/HR; Start 06/14 at 20:00 Miscellaneous Information (Pending Santyl Order For Wound Care) This patient meza... PRN PRN XX WOUND CARE; Start 06/14/17 at 15:00 Collagenase (Santyl) 1 applic DAILY TOP Last administered on 06/16/17 09:12; Admin Dose 1 APPLIC; Start 06/15/17 at 09:00 Collagenase 1 applic 1 applic PRN PRN TOP WOUND CARE; Start 06/14/17 at 16:00 Norepinephrine 250 ml @ 1.875 mls/ hr TITRATE IV Last administered on 11:36; Admin Dose 2.04 MLS/HR; Start 06/15/17 at 02:00 Propofol (Diprivan) 100 ml @ 2.55 mls/hr Q12H IV Last administered on 04:31; Admin Dose 4.08 MLS/HR; Start 06/15/17 at 04:30 Miscellaneous Information 1 ea NOTE XX ; Start 06/15/17 at 07:00 Glucose (Glutose) 15 gm Q15M PRN PO DECREASED GLUCOSE; Start 06/15/17 at 07:00 Glucose (Glutose) 22.5 gm Q15M PRN PO DECREASED GLUCOSE; Start 06/15/17 at 07:00 Glucagon (Glucagen) 1 mg Q15M PRN IM DECREASED GLUCOSE; Start 06/15/17 at 07:00 Glucose (Glutose) 15 gm Q15M PRN BUCCAL DECREASED GLUCOSE; Start 06/15/17 at 07: 00 Diagnostic Test (Pha) (Accu-Chek) 1 ea Q1H XX Last administered on 06/16/17 10: 12; Admin Dose 1 EA; Start 06/15/17 at 10:00 Dextrose (D50w Syringe) 25 ml Q15M PRN IV Till BS 80 mg/dL or above x2; Start 06/15/17 at 10:00 Dextrose 50 ml 50 ml Q15M PRN IV Till BS 80 mg/dL or above x2; Start 06/15/17 at 10:00 Levetiracetam 100 ml @ 400 mls/hr Q12 IVPB Last administered on 06/16/17 08:30 ; Admin Dose 400 MLS/HR; Start 06/15/17 at 11:00 Piperacillin Sod/ Tazobactam Sod (Zosyn 3.375gm/ 100 ml (Pmx)) 100 ml @ 200 mls /hr Q6 IVPB Last administered on 06/16/17 05:32; Admin Dose 200 MLS/HR; Start 06/15/17 at 14:30 IV Flush 10 ml 10 ml PRN PRN IV IV PROTOCOL; Start 06/15/17 at 14:30 Potassium Phosphate/Sodium Chloride (K Phos (Meq)/NS) 254.5455 ml @ 63.636 m... ONCE ONCE IVPB Last administered on 06/16/17 09:12; Admin Dose 63.636 MLS /HR; Start 06/16/17 at 09:00; Stop 06/16/17 at 12:59 KONSTANTIN VÁZQUEZ Jun 16, 2017 10:35
[2017-06-16] MEDS ORDERED: SOD CHLORIDE 0.9% 250 ML IV* ONE (10:36)
--- NOTE | 2017-06-16 11:11 | CONS ---
Date/Time of Note Date/Time of Note DATE: 06/16/17 TIME: 10:54 Assessment/Plan Assessment/Plan Chief Complaint/Hosp Course Refer to Assesment and Plan Problems: Additional Assessment/Plan No change in overall clinical condition... asked for SWS to schedule family conference Consultation Date/Type/Reason Admit Date/Time Jun 14, 2017 at 02:51 Initial Consult Date 06/15/17 Type of Consultation: Palliative Referring Provider: KONSTANTIN VÁZQUEZ Exam/Review of Systems Vital Signs Vitals Vital Signs Date Time Temp Pulse Resp B/P Pulse Ox O2 Delivery O2 Flow Rate FiO2 06/16/17 08:00 59 06/16/17 06:45 17 118/38 100 06/16/17 06:15 98.3 06/16/17 06:00 Mechanical Ventilator 06/16/17 05:00 40 06/14/17 12:30 15.0 Intake and Output 06/15/17 06/15/17 06/16/17 15:00 23:00 07:00 Intake Total 1273.990 ml 1672.245 ml 1458.52 ml Output Total 165 ml 145 ml 220 ml Balance 1108.990 ml 1527.245 ml 1238.52 ml Results Result Diagram: 06/16/17 0430 06/16/17 0430 Results 24 hrs Laboratory Tests Test 06/15/17 11:26 06/15/17 12:07 06/15/17 13:49 06/15/17 14:49 Bedside Glucose 223 H 204 156 161 Test 06/15/17 15:34 06/15/17 16:58 06/15/17 17:27 06/15/17 17:53 Bedside Glucose 143 182 141 Troponin I 0.295 *H Test 06/15/17 18:59 06/15/17 20:43 06/15/17 21:31 06/15/17 23:36 Bedside Glucose 131 138 126 133 Test 06/16/17 01:00 06/16/17 01:45 06/16/17 03:53 06/16/17 04:30 Troponin I 0.237 *H Bedside Glucose 134 130 White Blood Count 14.1 #H Red Blood Count 2.64 L Hemoglobin 7.0 #L Hematocrit 23.1 #L Mean Corpuscular Volume 87.5 Mean Corpuscular Hemoglobin 26.5 L Mean Corpuscular Hemoglobin Concent 30.3 L Red Cell Distribution Width 15.9 H Platelet Count 122 L Mean Platelet Volume 12.1 H Neutrophils % 90.4 H Lymphocytes % 3.2 L Monocytes % 5.4 Eosinophils % 0.3 Basophils % 0.1 Nucleated Red Blood Cells % 0.0 Neutrophils # 12.8 H Lymphocytes # 0.5 L Monocytes # 0.8 Eosinophils # 0.0 Basophils # 0.0 Nucleated Red Blood Cells # 0.0 Sodium Level 145 H Potassium Level 3.7 Chloride Level 104 Carbon Dioxide Level 32 H Anion Gap 13 Blood Urea Nitrogen 35 H Creatinine 1.01 Glucose Level 109 # Calcium Level 8.3 L Phosphorus Level 2.1 #L Magnesium Level 2.3 Total Bilirubin 1.1 Direct Bilirubin 0.00 Indirect Bilirubin 1.1 Aspartate Amino Transf (AST/SGOT) 23 # Alanine Aminotransferase (ALT/SGPT) 67 Alkaline Phosphatase 49 Total Protein 4.7 L Albumin 2.3 L Globulin 2.40 Albumin/Globulin Ratio 0.95 Test 06/16/17 05:40 06/16/17 06:47 06/16/17 08:27 06/16/17 10:11 Bedside Glucose 120 124 133 120 Medications Medications Current Medications Ondansetron HCl (Zofran Inj) 4 mg Q6H PRN IV NAUSEA AND/OR VOMITING; Start at 03:00 Acetaminophen (Tylenol Tab) 650 mg Q6H PRN PO PAIN LEVEL 1-3 OR FEVER; Start at 03:00 Pantoprazole 40 mg 40 mg DAILY@06 IV Last administered on 06/16/17 05:31; Admin Dose 40 MG; Start 06/14/17 at 06:00 Sodium Chloride 1,000 ml @ 80 mls/hr [id number] IV Last administered on 06/16/17 04:30; Admin Dose 80 MLS/HR; Start 06/14/17 at 09:00 Vancomycin HCl/ Sodium Chloride (Vancocin/NS) 250 ml @ 83.333 mls/ hr Q24H IVPB Last administered on 06/15/17 20:39; Admin Dose 83.333 MLS/HR; Start 06/14 at 20:00 Miscellaneous Information (Pending [facility] Order For Wound Care) This patient meza... PRN PRN XX WOUND CARE; Start 06/14/17 at 15:00 Collagenase (Santyl) 1 applic DAILY TOP Last administered on 06/16/17 09:12; Admin Dose 1 APPLIC; Start 06/15/17 at 09:00 Collagenase 1 applic 1 applic PRN PRN TOP WOUND CARE; Start 06/14/17 at 16:00 Norepinephrine 250 ml @ 1.875 mls/ hr TITRATE IV Last administered on 11:36; Admin Dose 2.04 MLS/HR; Start 06/15/17 at 02:00 Propofol (Diprivan) 100 ml @ 2.55 mls/hr Q12H IV Last administered on 04:31; Admin Dose 4.08 MLS/HR; Start 06/15/17 at 04:30 Miscellaneous Information 1 ea NOTE XX ; Start 06/15/17 at 07:00 Glucose (Glutose) 15 gm Q15M PRN PO DECREASED GLUCOSE; Start 06/15/17 at 07:00 Glucose (Glutose) 22.5 gm Q15M PRN PO DECREASED GLUCOSE; Start 06/15/17 at 07:00 Glucagon (Glucagen) 1 mg Q15M PRN IM DECREASED GLUCOSE; Start 06/15/17 at 07:00 Glucose (Glutose) 15 gm Q15M PRN BUCCAL DECREASED GLUCOSE; Start 06/15/17 at 07: 00 Diagnostic Test (Pha) (Accu-Chek) 1 ea Q1H XX Last administered on 06/16/17 10: 12; Admin Dose 1 EA; Start 06/15/17 at 10:00 Dextrose (D50w Syringe) 25 ml Q15M PRN IV Till BS 80 mg/dL or above x2; Start 06/15/17 at 10:00 Dextrose 50 ml 50 ml Q15M PRN IV Till BS 80 mg/dL or above x2; Start 06/15/17 at 10:00 Levetiracetam 100 ml @ 400 mls/hr Q12 IVPB Last administered on 06/16/17 08:30 ; Admin Dose 400 MLS/HR; Start 06/15/17 at 11:00 Piperacillin Sod/ Tazobactam Sod (Zosyn 3.375gm/ 100 ml (Pmx)) 100 ml @ 200 mls /hr Q6 IVPB Last administered on 06/16/17 05:32; Admin Dose 200 MLS/HR; Start 06/15/17 at 14:30 IV Flush 10 ml 10 ml PRN PRN IV IV PROTOCOL; Start 06/15/17 at 14:30 Potassium Phosphate/Sodium Chloride (K Phos (Meq)/NS) 254.5455 ml @ 63.636 m... ONCE ONCE IVPB Last administered on 06/16/17 09:12; Admin Dose 63.636 MLS /HR; Start 06/16/17 at 09:00; Stop 06/16/17 at 12:59 CLAUDE ROMERO Jun 16, 2017 11:04
--- NOTE | 2017-06-16 12:09 | CONS ---
Date/Time of Note Date/Time of Note DATE: 06/16/17 TIME: 12:05 Assessment/Plan Assessment/Plan Additional Assessment/Plan Cardiopulmonary arrest Shock Respiratory failure, vent dependent Preserved ejection fraction Sepsis Possible pneumonia with lung mass COPD on home oxygen Acute blood loss anemia -Patient with worsening anemia requiring blood transfusion. Has been off IV heparin. Continue to titrate IV pressor to maintain SBP greater than 90 and/or map above 60. Antibiotics as per infectious disease and vent management as per our pulmonary colleagues. Given patient's remains intubated, would consider starting enteric feeding. -Over 31 minutes of critical time spent in coordination of patient's care. Consultation Date/Type/Reason Admit Date/Time Jun 14, 2017 at 02:51 Initial Consult Date 06/15/17 Type of Consultation: cv Referring Provider: KONSTANTIN VÁZQUEZ 24 HR Interval Summary Free Text/Dictation Patient remains on IV pressors are being titrated down. Worsening hemoglobin and plan for blood transfusion. Otherwise, in discussion with nursing staff, no new cardiac events Exam/Review of Systems Vital Signs Vitals Vital Signs Date Time Temp Pulse Resp B/P Pulse Ox O2 Delivery O2 Flow Rate FiO2 06/16/17 11:00 60 16 113/44 100 Mechanical Ventilator 06/16/17 08:00 40 06/16/17 08:00 99.0 06/14/17 12:30 15.0 Intake and Output 06/15/17 06/15/17 06/16/17 15:00 23:00 07:00 Intake Total 1273.990 ml 1672.245 ml 1458.52 ml Output Total 165 ml 145 ml 220 ml Balance 1108.990 ml 1527.245 ml 1238.52 ml Exam Sedated and intubated, no apparent distress Head: normocephalic ENMT: intubated Respiratory: other (Coarse breath sounds bilaterally, no wheezing) Cardiovascular: other (S1-S2 heard), regular rate and rhythm, systolic murmur Gastrointestinal: bowel sounds, other (No grimacing with palpation), soft Extremities: edema Results Result Diagram: 06/16/17 0430 06/16/17 0430 Results 24 hrs Laboratory Tests Test 06/15/17 12:07 06/15/17 13:49 06/15/17 14:49 06/15/17 15:34 Bedside Glucose 204 156 161 143 Test 06/15/17 16:58 06/15/17 17:27 06/15/17 17:53 06/15/17 18:59 Bedside Glucose 182 141 131 Troponin I 0.295 *H Test 06/15/17 20:43 06/15/17 21:31 06/15/17 23:36 06/16/17 01:00 Bedside Glucose 138 126 133 Troponin I 0.237 *H Test 06/16/17 01:45 06/16/17 03:53 06/16/17 04:30 06/16/17 05:40 Bedside Glucose 134 130 120 White Blood Count 14.1 #H Red Blood Count 2.64 L Hemoglobin 7.0 #L Hematocrit 23.1 #L Mean Corpuscular Volume 87.5 Mean Corpuscular Hemoglobin 26.5 L Mean Corpuscular Hemoglobin Concent 30.3 L Red Cell Distribution Width 15.9 H Platelet Count 122 L Mean Platelet Volume 12.1 H Neutrophils % 90.4 H Lymphocytes % 3.2 L Monocytes % 5.4 Eosinophils % 0.3 Basophils % 0.1 Nucleated Red Blood Cells % 0.0 Neutrophils # 12.8 H Lymphocytes # 0.5 L Monocytes # 0.8 Eosinophils # 0.0 Basophils # 0.0 Nucleated Red Blood Cells # 0.0 Sodium Level 145 H Potassium Level 3.7 Chloride Level 104 Carbon Dioxide Level 32 H Anion Gap 13 Blood Urea Nitrogen 35 H Creatinine 1.01 Glucose Level 109 # Calcium Level 8.3 L Phosphorus Level 2.1 #L Magnesium Level 2.3 Total Bilirubin 1.1 Direct Bilirubin 0.00 Indirect Bilirubin 1.1 Aspartate Amino Transf (AST/SGOT) 23 # Alanine Aminotransferase (ALT/SGPT) 67 Alkaline Phosphatase 49 Total Protein 4.7 L Albumin 2.3 L Globulin 2.40 Albumin/Globulin Ratio 0.95 Test 06/16/17 06:47 06/16/17 08:27 06/16/17 10:11 Bedside Glucose 124 133 120 Medications Medications Current Medications Ondansetron HCl (Zofran Inj) 4 mg Q6H PRN IV NAUSEA AND/OR VOMITING; Start at 03:00 Acetaminophen (Tylenol Tab) 650 mg Q6H PRN PO PAIN LEVEL 1-3 OR FEVER; Start at 03:00 Pantoprazole 40 mg 40 mg DAILY@06 IV Last administered on 06/16/17 05:31; Admin Dose 40 MG; Start 06/14/17 at 06:00 Sodium Chloride 1,000 ml @ 80 mls/hr [id number] IV Last administered on 06/16/17 04:30; Admin Dose 80 MLS/HR; Start 06/14/17 at 09:00 Vancomycin HCl/ Sodium Chloride (Vancocin/NS) 250 ml @ 83.333 mls/ hr Q24H IVPB Last administered on 06/15/17 20:39; Admin Dose 83.333 MLS/HR; Start 06/14 at 20:00 Miscellaneous Information (Pending Santyl Order For Wound Care) This patient meza... PRN PRN XX WOUND CARE; Start 06/14/17 at 15:00 Collagenase (Santyl) 1 applic DAILY TOP Last administered on 06/16/17 09:12; Admin Dose 1 APPLIC; Start 06/15/17 at 09:00 Collagenase 1 applic 1 applic PRN PRN TOP WOUND CARE; Start 06/14/17 at 16:00 Norepinephrine 250 ml @ 1.875 mls/ hr TITRATE IV Last administered on 11:36; Admin Dose 2.04 MLS/HR; Start 06/15/17 at 02:00 Propofol (Diprivan) 100 ml @ 2.55 mls/hr Q12H IV Last administered on 04:31; Admin Dose 4.08 MLS/HR; Start 06/15/17 at 04:30 Miscellaneous Information 1 ea NOTE XX ; Start 06/15/17 at 07:00 Glucose (Glutose) 15 gm Q15M PRN PO DECREASED GLUCOSE; Start 06/15/17 at 07:00 Glucose (Glutose) 22.5 gm Q15M PRN PO DECREASED GLUCOSE; Start 06/15/17 at 07:00 Glucagon (Glucagen) 1 mg Q15M PRN IM DECREASED GLUCOSE; Start 06/15/17 at 07:00 Glucose (Glutose) 15 gm Q15M PRN BUCCAL DECREASED GLUCOSE; Start 06/15/17 at 07: 00 Diagnostic Test (Pha) (Accu-Chek) 1 ea Q1H XX Last administered on 06/16/17 10: 12; Admin Dose 1 EA; Start 06/15/17 at 10:00 Dextrose (D50w Syringe) 25 ml Q15M PRN IV Till BS 80 mg/dL or above x2; Start 06/15/17 at 10:00 Dextrose 50 ml 50 ml Q15M PRN IV Till BS 80 mg/dL or above x2; Start 06/15/17 at 10:00 Levetiracetam 100 ml @ 400 mls/hr Q12 IVPB Last administered on 06/16/17 08:30 ; Admin Dose 400 MLS/HR; Start 06/15/17 at 11:00 Piperacillin Sod/ Tazobactam Sod (Zosyn 3.375gm/ 100 ml (Pmx)) 100 ml @ 200 mls /hr Q6 IVPB Last administered on 06/16/17 05:32; Admin Dose 200 MLS/HR; Start 06/15/17 at 14:30 IV Flush 10 ml 10 ml PRN PRN IV IV PROTOCOL; Start 06/15/17 at 14:30 Potassium Phosphate/Sodium Chloride (K Phos (Meq)/NS) 254.5455 ml @ 63.636 m... ONCE ONCE IVPB Last administered on 06/16/17 09:12; Admin Dose 63.636 MLS /HR; Start 06/16/17 at 09:00; Stop 06/16/17 at 12:59 Augie Encarnacion DO Jun 16, 2017 12:09
--- NOTE | 2017-06-16 13:21 | CONS ---
Date/Time of Note Date/Time of Note DATE: 06/16/17 TIME: 13:18 Assessment/Plan Assessment/Plan Additional Assessment/Plan Ventilator setting; AC of 16, tidal volume 500, PEEP of 5, 40% FiO2. Patient currently on Levophed at 2 mics per minute. Assessment recommendations; 1. Patient admitted with hypoxemic respiratory failure requiring intubation status post CPR. 2. History of Parkinson's disease. 3. Prior history of right lung cancer status post lobectomy. 4. Extensive pneumonia. 5. Difficult to rule out anoxic brain injury. Continue current treatment. Obtain follow-up chest x-ray. Patient may require to have a bronchoscopy performed. I am going to decide that once the follow-up chest x-rays done. Consultation Date/Type/Reason Admit Date/Time Jun 14, 2017 at 02:51 Initial Consult Date 06/14/17 Type of Consultation: Pulmonary/critical care Referring Provider: KONSTANTIN VÁZQUEZ 24 HR Interval Summary Free Text/Dictation Patient condition remains critical. Remains awake. Has been off propofol drip. Patient however does not follow any commands. Still requiring low-dose Levophed for hypotension. General exam; elderly male, orally intubated, awake but unresponsive to any commands. Exam/Review of Systems Vital Signs Vitals Vital Signs Date Time Temp Pulse Resp B/P Pulse Ox O2 Delivery O2 Flow Rate FiO2 06/16/17 11:00 60 16 113/44 100 Mechanical Ventilator 06/16/17 08:00 40 06/16/17 08:00 99.0 06/14/17 12:30 15.0 Intake and Output 06/15/17 06/15/17 06/16/17 15:00 23:00 07:00 Intake Total 1273.990 ml 1672.245 ml 1458.52 ml Output Total 165 ml 145 ml 220 ml Balance 1108.990 ml 1527.245 ml 1238.52 ml Exam HEENT exam; supple neck, no JVD. No lymphadenopathy. Midline trachea. No thyromegaly. He has bilateral intraocular lens implants. He is edentulous. Orally intubated. Chest exam; diminished breath sounds right lung. There is a well-healed right lateral thoracotomy scar. Left lung is fairly clear to auscultation. S1-S2 audible, no murmurs. Regular rhythm. Abdomen exam; soft, no organomegaly. Bowel sounds audible. Extremity exam; no edema. [employer] exam; patient is awake but unresponsive to any commands. Results Result Diagram: 06/16/17 0430 06/16/17 0430 Results 24 hrs Laboratory Tests Test 06/15/17 13:49 06/15/17 14:49 06/15/17 15:34 06/15/17 16:58 Bedside Glucose 156 161 143 182 Test 06/15/17 17:27 06/15/17 17:53 06/15/17 18:59 06/15/17 20:43 Troponin I 0.295 *H Bedside Glucose 141 131 138 Test 06/15/17 21:31 06/15/17 23:36 06/16/17 01:00 06/16/17 01:45 Bedside Glucose 126 133 134 Troponin I 0.237 *H Test 06/16/17 03:53 06/16/17 04:30 06/16/17 05:40 06/16/17 06:47 Bedside Glucose 130 120 124 White Blood Count 14.1 #H Red Blood Count 2.64 L Hemoglobin 7.0 #L Hematocrit 23.1 #L Mean Corpuscular Volume 87.5 Mean Corpuscular Hemoglobin 26.5 L Mean Corpuscular Hemoglobin Concent 30.3 L Red Cell Distribution Width 15.9 H Platelet Count 122 L Mean Platelet Volume 12.1 H Neutrophils % 90.4 H Lymphocytes % 3.2 L Monocytes % 5.4 Eosinophils % 0.3 Basophils % 0.1 Nucleated Red Blood Cells % 0.0 Neutrophils # 12.8 H Lymphocytes # 0.5 L Monocytes # 0.8 Eosinophils # 0.0 Basophils # 0.0 Nucleated Red Blood Cells # 0.0 Sodium Level 145 H Potassium Level 3.7 Chloride Level 104 Carbon Dioxide Level 32 H Anion Gap 13 Blood Urea Nitrogen 35 H Creatinine 1.01 Glucose Level 109 # Calcium Level 8.3 L Phosphorus Level 2.1 #L Magnesium Level 2.3 Total Bilirubin 1.1 Direct Bilirubin 0.00 Indirect Bilirubin 1.1 Aspartate Amino Transf (AST/SGOT) 23 # Alanine Aminotransferase (ALT/SGPT) 67 Alkaline Phosphatase 49 Total Protein 4.7 L Albumin 2.3 L Globulin 2.40 Albumin/Globulin Ratio 0.95 Test 06/16/17 08:27 06/16/17 10:11 06/16/17 12:06 Bedside Glucose 133 120 111 Medications Medications Current Medications Ondansetron HCl (Zofran Inj) 4 mg Q6H PRN IV NAUSEA AND/OR VOMITING; Start at 03:00 Acetaminophen (Tylenol Tab) 650 mg Q6H PRN PO PAIN LEVEL 1-3 OR FEVER; Start at 03:00 Pantoprazole 40 mg 40 mg DAILY@06 IV Last administered on 06/16/17 05:31; Admin Dose 40 MG; Start 06/14/17 at 06:00 Sodium Chloride 1,000 ml @ 80 mls/hr [id number] IV Last administered on 06/16/17 04:30; Admin Dose 80 MLS/HR; Start 06/14/17 at 09:00 Vancomycin HCl/ Sodium Chloride (Vancocin/NS) 250 ml @ 83.333 mls/ hr Q24H IVPB Last administered on 06/15/17 20:39; Admin Dose 83.333 MLS/HR; Start 06/14 at 20:00 Miscellaneous Information (Pending Santyl Order For Wound Care) This patient meza... PRN PRN XX WOUND CARE; Start 06/14/17 at 15:00 Collagenase (Santyl) 1 applic DAILY TOP Last administered on 06/16/17 09:12; Admin Dose 1 APPLIC; Start 06/15/17 at 09:00 Collagenase 1 applic 1 applic PRN PRN TOP WOUND CARE; Start 06/14/17 at 16:00 Norepinephrine 250 ml @ 1.875 mls/ hr TITRATE IV Last administered on 11:36; Admin Dose 2.04 MLS/HR; Start 06/15/17 at 02:00 Propofol (Diprivan) 100 ml @ 2.55 mls/hr Q12H IV Last administered on 04:31; Admin Dose 4.08 MLS/HR; Start 06/15/17 at 04:30 Miscellaneous Information 1 ea NOTE XX ; Start 06/15/17 at 07:00 Glucose (Glutose) 15 gm Q15M PRN PO DECREASED GLUCOSE; Start 06/15/17 at 07:00 Glucose (Glutose) 22.5 gm Q15M PRN PO DECREASED GLUCOSE; Start 06/15/17 at 07:00 Glucagon (Glucagen) 1 mg Q15M PRN IM DECREASED GLUCOSE; Start 06/15/17 at 07:00 Glucose (Glutose) 15 gm Q15M PRN BUCCAL DECREASED GLUCOSE; Start 06/15/17 at 07: 00 Diagnostic Test (Pha) (Accu-Chek) 1 ea Q1H XX Last administered on 06/16/17 12: 07; Admin Dose 1 EA; Start 06/15/17 at 10:00 Dextrose (D50w Syringe) 25 ml Q15M PRN IV Till BS 80 mg/dL or above x2; Start 06/15/17 at 10:00 Dextrose 50 ml 50 ml Q15M PRN IV Till BS 80 mg/dL or above x2; Start 06/15/17 at 10:00 Levetiracetam 100 ml @ 400 mls/hr Q12 IVPB Last administered on 06/16/17 08:30 ; Admin Dose 400 MLS/HR; Start 06/15/17 at 11:00 Piperacillin Sod/ Tazobactam Sod (Zosyn 3.375gm/ 100 ml (Pmx)) 100 ml @ 200 mls /hr Q6 IVPB Last administered on 06/16/17 05:32; Admin Dose 200 MLS/HR; Start 06/15/17 at 14:30 IV Flush (NS 10 ml) 10 ml PRN PRN IV IV PROTOCOL; Start 06/15/17 at 14:30 STEPHANIE PATTERSON Jun 16, 2017 13:21
--- NOTE | 2017-06-16 13:46 | CONS ---
Date/Time of Note Date/Time of Note DATE: 06/16/17 TIME: 13:43 Consult Date/Type/Reason Admit Date/Time Jun 14, 2017 at 02:51 Initial Consult Date 06/15/17 Type of Consultation: Neurology Reason for Consultation eval for hypoxic injury Ordering Provider: KONSTANTIN VÁZQUEZ Subjective EEG shows 5-6 Hz mild slowing no seizures overnight unable to complete MRI due to desaturation, requiring transfusion for severe anemia Objective Vital Signs Date Time Temp Pulse Resp B/P Pulse Ox O2 Delivery O2 Flow Rate FiO2 06/16/17 13:00 64 16 128/43 100 Mechanical Ventilator 06/16/17 12:00 99.1 06/16/17 08:00 40 06/14/17 12:30 15.0 Intake and Output 06/15/17 06/15/17 06/16/17 15:00 23:00 07:00 Intake Total 1273.990 ml 1672.245 ml 1458.52 ml Output Total 165 ml 145 ml 220 ml Balance 1108.990 ml 1527.245 ml 1238.52 ml Exam arousable awakens to verbal stimuli not following commands CN: UZIEL, right gaze preference, dolls intact Motor: withdraws minimally in both arms, legs withdraw with triple flexion movement Results/Medications Result Diagram: 06/16/17 0430 06/16/17 0430 Results 24 hrs Laboratory Tests Test 06/15/17 13:49 06/15/17 14:49 06/15/17 15:34 06/15/17 16:58 Bedside Glucose 156 161 143 182 Test 06/15/17 17:27 06/15/17 17:53 06/15/17 18:59 06/15/17 20:43 Troponin I 0.295 *H Bedside Glucose 141 131 138 Test 06/15/17 21:31 06/15/17 23:36 06/16/17 01:00 06/16/17 01:45 Bedside Glucose 126 133 134 Troponin I 0.237 *H Test 06/16/17 03:53 06/16/17 04:30 06/16/17 05:40 06/16/17 06:47 Bedside Glucose 130 120 124 White Blood Count 14.1 #H Red Blood Count 2.64 L Hemoglobin 7.0 #L Hematocrit 23.1 #L Mean Corpuscular Volume 87.5 Mean Corpuscular Hemoglobin 26.5 L Mean Corpuscular Hemoglobin Concent 30.3 L Red Cell Distribution Width 15.9 H Platelet Count 122 L Mean Platelet Volume 12.1 H Neutrophils % 90.4 H Lymphocytes % 3.2 L Monocytes % 5.4 Eosinophils % 0.3 Basophils % 0.1 Nucleated Red Blood Cells % 0.0 Neutrophils # 12.8 H Lymphocytes # 0.5 L Monocytes # 0.8 Eosinophils # 0.0 Basophils # 0.0 Nucleated Red Blood Cells # 0.0 Sodium Level 145 H Potassium Level 3.7 Chloride Level 104 Carbon Dioxide Level 32 H Anion Gap 13 Blood Urea Nitrogen 35 H Creatinine 1.01 Glucose Level 109 # Calcium Level 8.3 L Phosphorus Level 2.1 #L Magnesium Level 2.3 Total Bilirubin 1.1 Direct Bilirubin 0.00 Indirect Bilirubin 1.1 Aspartate Amino Transf (AST/SGOT) 23 # Alanine Aminotransferase (ALT/SGPT) 67 Alkaline Phosphatase 49 Total Protein 4.7 L Albumin 2.3 L Globulin 2.40 Albumin/Globulin Ratio 0.95 Test 06/16/17 08:27 06/16/17 10:11 06/16/17 12:06 Bedside Glucose 133 120 111 Medications Current Medications Ondansetron HCl (Zofran Inj) 4 mg Q6H PRN IV NAUSEA AND/OR VOMITING; Start at 03:00 Acetaminophen (Tylenol Tab) 650 mg Q6H PRN PO PAIN LEVEL 1-3 OR FEVER; Start at 03:00 Pantoprazole 40 mg 40 mg DAILY@06 IV Last administered on 06/16/17 05:31; Admin Dose 40 MG; Start 06/14/17 at 06:00 Sodium Chloride 1,000 ml @ 80 mls/hr [id number] IV Last administered on 06/16/17 04:30; Admin Dose 80 MLS/HR; Start 06/14/17 at 09:00 Vancomycin HCl/ Sodium Chloride (Vancocin/NS) 250 ml @ 83.333 mls/ hr Q24H IVPB Last administered on 06/15/17 20:39; Admin Dose 83.333 MLS/HR; Start 06/14 at 20:00 [facility] This patient meza... PRN PRN XX WOUND CARE; Start 06/14/17 at 15:00 Collagenase (Santyl) 1 applic DAILY TOP Last administered on 06/16/17 09:12; Admin Dose 1 APPLIC; Start 06/15/17 at 09:00 Collagenase 1 applic 1 applic PRN PRN TOP WOUND CARE; Start 06/14/17 at 16:00 Norepinephrine 250 ml @ 1.875 mls/ hr TITRATE IV Last administered on 11:36; Admin Dose 2.04 MLS/HR; Start 06/15/17 at 02:00 Propofol (Diprivan) 100 ml @ 2.55 mls/hr Q12H IV Last administered on 04:31; Admin Dose 4.08 MLS/HR; Start 06/15/17 at 04:30 Miscellaneous Information 1 ea NOTE XX ; Start 06/15/17 at 07:00 Glucose (Glutose) 15 gm Q15M PRN PO DECREASED GLUCOSE; Start 06/15/17 at 07:00 Glucose (Glutose) 22.5 gm Q15M PRN PO DECREASED GLUCOSE; Start 06/15/17 at 07:00 Glucagon (Glucagen) 1 mg Q15M PRN IM DECREASED GLUCOSE; Start 06/15/17 at 07:00 Glucose (Glutose) 15 gm Q15M PRN BUCCAL DECREASED GLUCOSE; Start 06/15/17 at 07: 00 Diagnostic Test (Pha) (Accu-Chek) 1 ea Q1H XX Last administered on 06/16/17 12: 07; Admin Dose 1 EA; Start 06/15/17 at 10:00 Dextrose (D50w Syringe) 25 ml Q15M PRN IV Till BS 80 mg/dL or above x2; Start 06/15/17 at 10:00 Dextrose 50 ml 50 ml Q15M PRN IV Till BS 80 mg/dL or above x2; Start 06/15/17 at 10:00 Levetiracetam 100 ml @ 400 mls/hr Q12 IVPB Last administered on 06/16/17 08:30 ; Admin Dose 400 MLS/HR; Start 06/15/17 at 11:00 Piperacillin Sod/ Tazobactam Sod (Zosyn 3.375gm/ 100 ml (Pmx)) 100 ml @ 200 mls /hr Q6 IVPB Last administered on 8/2/17at 05:32; Admin Dose 200 MLS/HR; Start 06/15/17 at 14:30 IV Flush (NS 10 ml) 10 ml PRN PRN IV IV PROTOCOL; Start 06/15/17 at 14:30 Assessment/Plan Chief Complaint/Hosp Course 81 yo male with recent admission for pneumonia requiring intubation readmitted after rehab stay with UTI/PNA, coded overnight with ROSC in 20 mins intubated on abx being managed in the ICU with post anoxic seizures noted. Recommendations: MRI Brain w/o contrast pending- may be completed when he is more stable, prefer MRI as this is more accurate rather than CT for evaluating anoxic injury continue Keppra 1 g BID EEG shows no seizures will follow up after patient is more stabilized and imaging completed to help guide prognosis Problems: LAINE CONNORS MD Jun 16, 2017 13:46
[2017-06-16 15:00] LABS: MICROALBUMIN 8.4 mg/dL
--- NOTE | 2017-06-16 15:02 | CONS ---
Date/Time of Note Date/Time of Note DATE: 06/16/17 TIME: 14:47 Assessment/Plan Assessment/Plan Additional Assessment/Plan Assessment * Anemia Hemoptysis vs others * Acute respiratory failure * S/P cardiac arrest * Diabetes mellitus * Sepsis * Hx of lung cancer * History of lobectomy Plan * Transfuse per protocol * monitor hemoglobin and hematocrit daily * Pantoprazole 40 mg BID * Case discussed with Dr Zhang * further orders will depend on clinical coure Consultation Date/Type/Reason Admit Date/Time Jun 14, 2017 at 02:51 Date of Consultation: Jun 16, 2017 Type of Consultation: Gastroenterology Reason for Consultation Anemia Referring Provider: KONSTANTIN VÁZQUEZ Hx of Present Illness 81 year old male with past medical history pneumonia,COPD,encephalopathy, Parkinson,DM,Chronic kidney disease,lung cancer ,s/p lobectomy who was admitted from a intermediate complaining of shortness of breath.Patient was admitted but coded yesterday,patient is intubated ,on pressors,on tube feeding,No episode of hematochezia nor hematemesis but on suctioning of endotracheal tube fresh blood is suction.Present hemoglobin is 7 and according to respiratory care practitioner and RN patient had hemoptysis and bleeding is noted on et tube and being transfuse blood.I have spoken to the family and explained our planned of management. Past Medical History Medical History: cancer (lung), diabetes, hypertension, other (parkinson,CKD, Pneumnia,sepsis) Past Surgical History Past Surgical Hx: other (lobectomy) Family History Significant Family History: no pertinent family hx Social History Smoking Status: Never smoker Exam/Review of Systems Vital Signs Vitals Vital Signs Date Time Temp Pulse Resp B/P Pulse Ox O2 Delivery O2 Flow Rate FiO2 06/16/17 13:00 64 16 128/43 100 Mechanical Ventilator 06/16/17 12:00 99.1 06/16/17 08:00 40 06/14/17 12:30 15.0 Intake and Output 06/15/17 06/15/17 06/16/17 15:00 23:00 07:00 Intake Total 1273.990 ml 1672.245 ml 1458.52 ml Output Total 165 ml 145 ml 220 ml Balance 1108.990 ml 1527.245 ml 1238.52 ml Exam Constitutional: frail, non-verbal Eyes: PERRL, nl sclera ENMT: intubated, other (ngt tube) Neck: non-tender, supple Respiratory: crackles/rales, diminished breath sounds Cardiovascular: nl pulses, regular rate and rhythm Gastrointestinal: bowel sounds, distended, non-tender, soft, No rebound or guarding Extremities: edema, normal pulses Neurological: unresponsive Skin: ecchymosis, rash or lesions Lymph: nl lymph nodes Results Result Diagram: 06/16/17 0430 06/16/17 0430 Results 24 hrs Laboratory Tests Test 06/15/17 14:49 06/15/17 15:34 06/15/17 16:58 06/15/17 17:27 Bedside Glucose 161 143 182 Troponin I 0.295 *H Test 06/15/17 17:53 06/15/17 18:59 06/15/17 20:43 06/15/17 21:31 Bedside Glucose 141 131 138 126 Test 06/15/17 23:36 06/16/17 01:00 06/16/17 01:45 06/16/17 03:53 Bedside Glucose 133 134 130 Troponin I 0.237 *H Test 06/16/17 04:30 06/16/17 05:40 06/16/17 06:47 06/16/17 08:27 White Blood Count 14.1 #H Red Blood Count 2.64 L Hemoglobin 7.0 #L Hematocrit 23.1 #L Mean Corpuscular Volume 87.5 Mean Corpuscular Hemoglobin 26.5 L Mean Corpuscular Hemoglobin Concent 30.3 L Red Cell Distribution Width 15.9 H Platelet Count 122 L Mean Platelet Volume 12.1 H Neutrophils % 90.4 H Lymphocytes % 3.2 L Monocytes % 5.4 Eosinophils % 0.3 Basophils % 0.1 Nucleated Red Blood Cells % 0.0 Neutrophils # 12.8 H Lymphocytes # 0.5 L Monocytes # 0.8 Eosinophils # 0.0 Basophils # 0.0 Nucleated Red Blood Cells # 0.0 Sodium Level 145 H Potassium Level 3.7 Chloride Level 104 Carbon Dioxide Level 32 H Anion Gap 13 Blood Urea Nitrogen 35 H Creatinine 1.01 Glucose Level 109 # Calcium Level 8.3 L Phosphorus Level 2.1 #L Magnesium Level 2.3 Total Bilirubin 1.1 Direct Bilirubin 0.00 Indirect Bilirubin 1.1 Aspartate Amino Transf (AST/SGOT) 23 # Alanine Aminotransferase (ALT/SGPT) 67 Alkaline Phosphatase 49 Total Protein 4.7 L Albumin 2.3 L Globulin 2.40 Albumin/Globulin Ratio 0.95 Bedside Glucose 120 124 133 Test 06/16/17 10:11 06/16/17 12:06 06/16/17 14:11 Bedside Glucose 120 111 108 Medications Medications Current Medications Ondansetron HCl (Zofran Inj) 4 mg Q6H PRN IV NAUSEA AND/OR VOMITING; Start at 03:00 Acetaminophen (Tylenol Tab) 650 mg Q6H PRN PO PAIN LEVEL 1-3 OR FEVER; Start at 03:00 Pantoprazole 40 mg 40 mg DAILY@06 IV Last administered on 06/16/17 05:31; Admin Dose 40 MG; Start 06/14/17 at 06:00 Sodium Chloride 1,000 ml @ 80 mls/hr [id number] IV Last administered on 06/16/17 04:30; Admin Dose 80 MLS/HR; Start 06/14/17 at 09:00 Vancomycin HCl/ Sodium Chloride (Vancocin/NS) 250 ml @ 83.333 mls/ hr Q24H IVPB Last administered on 06/15/17 20:39; Admin Dose 83.333 MLS/HR; Start 06/14 at 20:00 Miscellaneous Information (Pending Santyl Order For Wound Care) This patient meza... PRN PRN XX WOUND CARE; Start 06/14/17 at 15:00 Collagenase (Santyl) 1 applic DAILY TOP Last administered on 06/16/17 09:12; Admin Dose 1 APPLIC; Start 06/15/17 at 09:00 Collagenase 1 applic 1 applic PRN PRN TOP WOUND CARE; Start 06/14/17 at 16:00 Norepinephrine 250 ml @ 1.875 mls/ hr TITRATE IV Last administered on 11:36; Admin Dose 2.04 MLS/HR; Start 06/15/17 at 02:00 Propofol (Diprivan) 100 ml @ 2.55 mls/hr Q12H IV Last administered on 04:31; Admin Dose 4.08 MLS/HR; Start 06/15/17 at 04:30 Miscellaneous Information 1 ea NOTE XX ; Start 06/15/17 at 07:00 Glucose (Glutose) 15 gm Q15M PRN PO DECREASED GLUCOSE; Start 06/15/17 at 07:00 Glucose (Glutose) 22.5 gm Q15M PRN PO DECREASED GLUCOSE; Start 06/15/17 at 07:00 Glucagon (Glucagen) 1 mg Q15M PRN IM DECREASED GLUCOSE; Start 06/15/17 at 07:00 Glucose (Glutose) 15 gm Q15M PRN BUCCAL DECREASED GLUCOSE; Start 06/15/17 at 07: 00 Diagnostic Test (Pha) (Accu-Chek) 1 ea Q1H XX Last administered on 06/16/17 14: 12; Admin Dose 1 EA; Start 06/15/17 at 10:00 Dextrose (D50w Syringe) 25 ml Q15M PRN IV Till BS 80 mg/dL or above x2; Start 06/15/17 at 10:00 Dextrose 50 ml 50 ml Q15M PRN IV Till BS 80 mg/dL or above x2; Start 06/15/17 at 10:00 Levetiracetam 100 ml @ 400 mls/hr Q12 IVPB Last administered on 06/16/17 08:30 ; Admin Dose 400 MLS/HR; Start 06/15/17 at 11:00 Piperacillin Sod/ Tazobactam Sod (Zosyn 3.375gm/ 100 ml (Pmx)) 100 ml @ 200 mls /hr Q6 IVPB Last administered on 06/16/17 13:49; Admin Dose 200 MLS/HR; Start 06/15/17 at 14:30 IV Flush (NS 10 ml) 10 ml PRN PRN IV IV PROTOCOL; Start 06/15/17 at 14:30 RAJEEV DYER NP Jun 16, 2017 14:58
--- NOTE | 2017-06-16 15:34 | RADRPT ---
Vent Rate: 59 bpm RR Interval: 0 msec NH Interval: 218 msec QRS Duration: 66 msec QT Interval: 388 msec QTC Interval: 384 msec P-R-T [place]: 46 - -18 - 92 degrees Sinus bradycardia with 1st degree AV block Septal infarct , age undetermined Abnormal ECG Electronically Signed By: Bear Rawls [id number]
--- NOTE | 2017-06-16 15:34 | RADRPT ---
Vent Rate: 62 bpm RR Interval: 0 msec RI Interval: 164 msec QRS Duration: 92 msec QT Interval: 392 msec QTC Interval: 397 msec P-R-T [place]: -14 - -7 - 97 degrees Normal sinus rhythm Septal infarct , age undetermined Abnormal ECG Electronically Signed By: Bear Rawls [id number]
--- NOTE | 2017-06-16 15:47 | RADRPT ---
PROCEDURE: Chest radiograph. CLINICAL INDICATION: Respiratory failure. TECHNIQUE: Single portable frontal view. COMPARISON: Radiograph and the. FINDINGS: The endotracheal tube terminates above 6 cm above the john. The enteric tube coils within the stomach and terminates within the gastric fundus. Left PICC terminates in the superior vena cava. Right posterior fifth and sixth rib fractures, right-sided volume loss, and surgical clips about the right hilum and right lung base related to resection of previously noted hilar mass. An airspace opacity within right lower, mid, and upper lung remains unchanged. Small right and trace left pleural effusion. Aortic atherosclerosis. Old fracture of the distal right clavicle. IMPRESSION: Overall, no change in aeration of the right lung compared to yesterday's examination. There are evol ving surgical related changes. RPTAT: PP Physician Yue Date Time Electronically viewed and signed by Physician Yue on 06/16/2017 15:47 LG/
[2017-06-16] MEDS: VANCOMYCIN 1.5 GM in SOD CHLORIDE 0.9% 250 ML IVPB SCH ×2 (20:51→22:06)
[2017-06-17] VITALS (71 sets, daily range): BP systolic 111–178; BP diastolic 40–60; PULSE 49–68; RESP 0–28
[2017-06-17] MEDS: ACCU-CHEK XX SCH ×6 (02:54→09:29)
[2017-06-17] MEDS: PROPOFOL 100 ML IV SCH ×2 (02:55→16:30)
[2017-06-17] MEDS: PIPER-TAZO 3.375 GM IV (PMX) 100 ML IVPB SCH ×4 (06:00→23:41)
[2017-06-17] MEDS: PANTOPRAZOLE 40 MG INJ IV SCH (06:00)
[2017-06-17 06:21] LABS: ABNORMAL IP MESSAGE 1; BASOPHILS % 0.2 % (0.0-2.0); EOSINOPHILS # 0.1 10^3/ul (0.0-0.5); EOSINOPHILS % 0.5 % (0.0-7.0); HEMATOCRIT 27.7 % (42.0-52.0); HEMOGLOBIN 8.7 g/dl (14.0-18.0); LYMPHOCYTES # 0.5 10^3/ul (0.8-2.9); LYMPHOCYTES % 5.3 % (15.0-51.0); MEAN CORPUSCULAR HGB CONC 31.4 g/dl (32.0-37.0); MEAN CORPUSCULAR VOLUME 82.7 fl (82.0-101.0); MONOCYTE # 0.5 10^3/ul (0.3-0.9); MONOCYTES % 5.2 % (0.0-11.0); NEUTROPHIL # 8.7 10^3/ul (1.6-7.5); NEUTROPHILS % 88.2 % (39.0-77.0); PLATELET COUNT 103 10^3/UL (140-415); POSITIVE DIFF @See below; RED BLOOD COUNT 3.35 10^6/ul (4.70-6.10); RED CELL DISTRIBUTION WIDTH 17.5 % (11.5-14.5); WHITE BLOOD COUNT 9.8 10^3/ul (4.8-10.8)
--- NOTE | 2017-06-17 06:24 | PRO ---
DATE OF PROCEDURE: 06/15/2017 INDICATION: This is a 81-year-old male who was admitted with acute respiratory failure and was found to have severe sepsis. EEG is to rule out encephalopathy. CURRENT MEDICATIONS: 1. Cefepime. 2. Insulin. 3. Keppra. 4. Propofol. PROCEDURE PERFORMED: Utilizing a 16-channel EEG machine, cap scalp electrodes were applied in accordance with international 10- 20 system. [id number], [id number] montages were displayed. Electrical impedances were measured and reported. DESCRIPTION OF PROCEDURE: During the resting stage, a posterior dominant rhythm of about 5-6 hertz was seen bi-hemispherically. Photic stimulation had no response. Hyperventilation was not performed. There were no focal lateralizing or epileptiform discharges identified. INTERPRETATION: This is an abnormal EEG due to presence of bi- hemispheric background slowing without any epileptiform activity, consistent with encephalopathy. Please correlate these findings with the patient's clinical picture. Dictated By: Marietta Rainey MD /ke/elijah /Document#: [id number]
[2017-06-17 07:12] LABS: ALBUMIN 2.5 g/dl (3.3-4.9); ALBUMIN/GLOBULIN RATIO 1.04; BILIRUBIN,INDIRECT 1.8 mg/dl (0-1.1); BILIRUBIN,TOTAL 1.8 mg/dl (0.2-1.3); CALCIUM 8.1 mg/dl (8.4-10.2); CREATININE 1.01 mg/dl (0.61-1.24); MAGNESIUM 2.2 mg/dl (1.7-2.5); PHOSPHORUS 2.9 mg/dl (2.5-4.9); POTASSIUM 3.8 mmol/L (3.5-5.1); TOTAL PROTEIN 4.9 g/dl (6.1-8.1)
--- NOTE | 2017-06-17 07:29 | CONS ---
Date/Time of Note Date/Time of Note DATE: 06/17/17 TIME: 07:28 Assessment/Plan Assessment/Plan Chief Complaint/Hosp Course Refer to Assesment and Plan Problems: Consultation Date/Type/Reason Admit Date/Time Jun 14, 2017 at 02:51 Initial Consult Date 06/15/17 Type of Consultation: Palliative care Referring Provider: KONSTANTIN VÁZQUEZ 24 HR Interval Summary Free Text/Dictation Patient remains intubated in the intensive care unit there is been no major clinical change. I have asked case management to schedule family conference which is to be done June 17, 2017. Exam/Review of Systems Vital Signs Vitals Vital Signs Date Time Temp Pulse Resp B/P Pulse Ox O2 Delivery O2 Flow Rate FiO2 06/17/17 06:00 63 15 122/49 100 06/17/17 05:02 40 06/17/17 04:00 98.9 06/17/17 00:00 Mechanical Ventilator 06/14/17 12:30 15.0 Intake and Output 06/16/17 06/16/17 06/17/17 15:00 23:00 07:00 Intake Total 1333.1955 ml 1322.5 ml 610 ml Output Total 462 ml 650 ml 350 ml Balance 871.1955 ml 672.5 ml 260 ml Results Result Diagram: 06/17/17 0600 06/17/17 0600 Results 24 hrs Laboratory Tests Test 06/16/17 08:27 06/16/17 10:11 06/16/17 12:06 06/16/17 14:11 Bedside Glucose 133 120 111 108 Test 06/16/17 16:04 06/16/17 18:06 06/16/17 20:52 06/16/17 22:10 Bedside Glucose 118 138 112 136 Test 06/16/17 23:37 06/17/17 02:17 06/17/17 04:27 06/17/17 05:09 Bedside Glucose 115 133 132 Lab Scanned Report BLOOD TRANSFUSION Test 06/17/17 06:00 06/17/17 06:03 White Blood Count 9.8 # Red Blood Count 3.35 #L Hemoglobin 8.7 #L Hematocrit 27.7 L Mean Corpuscular Volume 82.7 Mean Corpuscular Hemoglobin 26.0 L Mean Corpuscular Hemoglobin Concent 31.4 L Red Cell Distribution Width 17.5 H Platelet Count 103 L Mean Platelet Volume 12.0 H Neutrophils % 88.2 H Lymphocytes % 5.3 L Monocytes % 5.2 Eosinophils % 0.5 Basophils % 0.2 Nucleated Red Blood Cells % 0.0 Neutrophils # 8.7 H Lymphocytes # 0.5 L Monocytes # 0.5 Eosinophils # 0.1 Basophils # 0.0 Nucleated Red Blood Cells # 0.0 Sodium Level 145 H Potassium Level 3.8 Chloride Level 105 Carbon Dioxide Level 30 Anion Gap 14 Blood Urea Nitrogen 30 H Creatinine 1.01 Glucose Level 107 Calcium Level 8.1 L Phosphorus Level 2.9 Magnesium Level 2.2 Total Bilirubin 1.8 H Direct Bilirubin 0.00 Indirect Bilirubin 1.8 H Aspartate Amino Transf (AST/SGOT) 30 Alanine Aminotransferase (ALT/SGPT) 65 Alkaline Phosphatase 69 Total Protein 4.9 L Albumin 2.5 L Globulin 2.40 Albumin/Globulin Ratio 1.04 Bedside Glucose 114 Medications Medications Current Medications Ondansetron HCl (Zofran Inj) 4 mg Q6H PRN IV NAUSEA AND/OR VOMITING; Start at 03:00 Acetaminophen (Tylenol Tab) 650 mg Q6H PRN PO PAIN LEVEL 1-3 OR FEVER; Start at 03:00 Pantoprazole 40 mg 40 mg DAILY@06 IV Last administered on 06/17/17 06:00; Admin Dose 40 MG; Start 06/14/17 at 06:00 Sodium Chloride 1,000 ml @ 80 mls/hr [id number] IV Last administered on 06/16/17 18:08; Admin Dose 80 MLS/HR; Start 06/14/17 at 09:00 Vancomycin HCl/ Sodium Chloride (Vancocin/NS) 250 ml @ 83.333 mls/ hr Q24H IVPB Last administered on 06/16/17 22:06; Admin Dose 83.333 MLS/HR; Start 06/14 at 20:00 Miscellaneous Information (Pending Santyl Order For Wound Care) This patient meza... PRN PRN XX WOUND CARE; Start 06/14/17 at 15:00 Collagenase (Santyl) 1 applic DAILY TOP Last administered on 06/16/17 09:12; Admin Dose 1 APPLIC; Start 06/15/17 at 09:00 Collagenase 1 applic 1 applic PRN PRN TOP WOUND CARE; Start 06/14/17 at 16:00 Propofol (Diprivan) 100 ml @ 2.55 mls/hr Q12H IV Last administered on 04:31; Admin Dose 4.08 MLS/HR; Start 06/15/17 at 04:30 Miscellaneous Information 1 ea NOTE XX ; Start 06/15/17 at 07:00 Glucose (Glutose) 15 gm Q15M PRN PO DECREASED GLUCOSE; Start 06/15/17 at 07:00 Glucose (Glutose) 22.5 gm Q15M PRN PO DECREASED GLUCOSE; Start 06/15/17 at 07:00 Glucagon (Glucagen) 1 mg Q15M PRN IM DECREASED GLUCOSE; Start 06/15/17 at 07:00 Glucose (Glutose) 15 gm Q15M PRN BUCCAL DECREASED GLUCOSE; Start 06/15/17 at 07: 00 Diagnostic Test (Pha) (Accu-Chek) 1 ea Q1H XX Last administered on 06/17/17 06: 00; Admin Dose 1 EA; Start 06/15/17 at 10:00 Dextrose (D50w Syringe) 25 ml Q15M PRN IV Till BS 80 mg/dL or above x2; Start 06/15/17 at 10:00 Dextrose 50 ml 50 ml Q15M PRN IV Till BS 80 mg/dL or above x2; Start 06/15/17 at 10:00 Levetiracetam 100 ml @ 400 mls/hr Q12 IVPB Last administered on 06/16/17 20:53 ; Admin Dose 400 MLS/HR; Start 06/15/17 at 11:00 Piperacillin Sod/ Tazobactam Sod (Zosyn 3.375gm/ 100 ml (Pmx)) 100 ml @ 200 mls /hr Q6 IVPB Last administered on 06/17/17 06:00; Admin Dose 200 MLS/HR; Start 06/15/17 at 14:30 IV Flush 10 ml 10 ml PRN PRN IV IV PROTOCOL; Start 06/15/17 at 14:30 Norepinephrine/ Dextrose (Levophed/D5W) 500 ml @ 0 mls/hr TITRATE IV ; Start 06/16/17 at 16:00 CLAUDE ROMERO Jun 17, 2017 07:29
[2017-06-17] MEDS: LEVETIRACETAM 1000 MG (PMX) 100 ML IVPB SCH ×2 (09:28→23:11)
[2017-06-17] MEDS: COLLAGENASE 30 GM TUBE TOP SCH (09:28)
--- NOTE | 2017-06-17 10:03 | PN ---
DATE: 06/17/2017 SUBJECTIVE DATA: The patient remains critically ill on ventilatory support. No other events noted. OBJECTIVE DATA: VITAL SIGNS: Blood pressure is 132/49, respirations 15, pulse 63, temperature 98.9. HEENT: Head is normocephalic. NECK: Supple. HEART: Regular rate. LUNGS: Diminished breath sounds at the base. ABDOMEN: Soft, nontender to palpation. No rebound or guarding. EXTREMITIES: Negative for clubbing or cyanosis. No edema. DERMATOLOGIC: No rashes. MUSCULOSKELETAL: No joint effusion. NEUROLOGIC: No change in exam. MEDICATIONS: Reviewed. LABORATORY DATA: Sodium 145, potassium 3.8, chloride 105, BUN 30, creatinine 1.01, white count 9.8, hemoglobin 8.7, hematocrit 27.7, platelet count is 103. IMAGING STUDIES: The patient's chest x-ray was reviewed. ASSESSMENT AND PLAN: 1. Nonoliguric acute kidney injury on top of chronic kidney disease. Etiology secondary to hemodynamics sepsis. The patient's renal function has improved. At this point, continue current treatment and supportive care. Renally dose all medications. 2. Chronic kidney disease. The patient's renal ultrasound shows evidence of echogenic kidneys consistent with chronic kidney disease. The patient is currently acute kidney as stated above. Continue current treatment plan. 3. Hyperkalemia resolved. 4. Anemia. Monitor H and H levels. 5. Hyponatremia. Continue free water flushes 200 cc q.4 hours. 6. Mineral bone disorder. Monitor calcium and phosphorus levels. 7. Severe sepsis secondary to pneumonia and urinary tract infection. Continue antibiotic regimen. 8. Ventilatory-dependent respiratory failure. Vent settings reviewed. ABGs reviewed. Continue to monitor. 9. Acute encephalopathy, etiology is toxic metabolic. Continue to monitor. 10. Elevated troponin. Possible non ST segment elevation myocardial infarction, type 2. Continue current medical management. Follow up with Cardiology. 11. History of right lung cancer, status post resection. Dictated By: David Brand DO /ke/ /Document#: [id number]
--- NOTE | 2017-06-17 10:33 | PN ---
Date/Time of Note Date/Time of Note DATE: 06/17/17 TIME: 10:29 Assessment/Plan VTE Prophylaxis VTE Prophylaxis Intervention: contraindicated VTE Contraindication Reason: bleeding Lines/Catheters IV Catheter Type (from Nrs): PICC Line Central line still needed: Yes Urinary Cath still in place: Yes Reason Cath still needed: urinary retention Assessment/Plan Chief Complaint/Hosp Course ASSESSMENT AND PLAN: An 81-year-old male, who presents with sepsis secondary to urinary tract infection, pneumonia with whiteout of the right lung with a prior history of lung cancer, status post lobectomy, with significant possible upper gastrointestinal bleeding, status post code event 24 hours ago, intubated and sedated with possible new-onset seizure activities. 1. Sepsis. Likely source pneumonia and urinary tract urinary tract infection. Off pressor support since yesterday. Slowly improving. - Continue broad-spectrum antibiotics. Tylenol p.r.n. pain and fevers. - Follow up culture results. Consider ID consult if does not improve. 2. Likely cardiac arrest -patient coded 48 hours ago. A bit more alert today however per - Follow up Cardiology recommendations. Heparin drip has been stopped. -MRI of the brain is pending. Follow-up neurology recommendations. -Continue Keppra for seizure prophylaxis 3. Hemoptysis. Again, patient has possible upper gastrointestinal bleed and hematemesis versus hemoptysis, unclear source. Again, patient has history of lung cancer, prior lobectomy. This could be the source? Status post PRBC transfusion yesterday today hemoglobin stable again, heparin drip has been stopped. - Continue to monitor for now. -Aloe up GI consult recommendations -Avoid all anticoagulants. - Follow-up occult test. 4. Respiratory failure. Again, patient coded,intubated. The patient also has a prior history of lung cancer status post lobectomy in the past. -Follow Pulmonary recommendations. - We will continue antibiotics and mechanical ventilation. - Monitor oxygen levels. 5. Hyponatremia and hyperkalemia. Appreciate renal consult. Again, free water flushes have been started. Also have held TOSIN- inhibitor -Continue to monitor levels of sodium and potassium as well. 6. Rrl-QJ-[id number] myocardial infarction. Again, appreciate Cardiology recommendations given the code event and the patient's possible upper gastrointestinal bleed versus hemoptysis. - Again we are holding heparin drip - Monitor heart rate.Troponin is still elevated -When patient is more stable, he may need may benefit from heart catheterization. 7. Type 2 diabetes. A1c 5.9 Will stop insulin drip today, start on sliding scale and Lantus 8. History of chronic obstructive pulmonary disease. - Carito p.rhali. 9. History of benign prostatic hypertrophy . - Continue to monitor for now. 10. Gastrointestinal prophylaxis - H2 blair. Critical care time spent today on patient, 45 minutes. Problems: Subjective 24 Hr Interval Summary Free Text/Dictation Patient received PRBC transfusion yesterday. Off pressors. Not able to get an MRI of the brain yet. Exam/Review of Systems Vital Signs Vitals Vital Signs Date Time Temp Pulse Resp B/P Pulse Ox O2 Delivery O2 Flow Rate FiO2 06/17/17 09:45 57 0 100 06/17/17 09:00 116/45 06/17/17 08:00 98.9 06/17/17 05:02 40 06/17/17 00:00 Mechanical Ventilator 06/14/17 12:30 15.0 Intake and Output 06/16/17 06/16/17 06/17/17 15:00 23:00 07:00 Intake Total 1333.1955 ml 1322.5 ml 610 ml Output Total 462 ml 650 ml 350 ml Balance 871.1955 ml 672.5 ml 260 ml Exam GENERAL: Patient is lying in bed,intubated, with movement, responding to some STEMI HEENT: Unable to fully assess today. NECK: Supple. No thyromegaly. LUNGS: Less distant breath sounds bilaterally. CARDIOVASCULAR: S1, S2 heard. No rubs or gallops. ABDOMEN: Soft, nontender, nondistended. Normal bowel sounds. No rebound or guarding. MUSCULOSKELETAL: No lower extremity edema bilaterally. NEUROLOGIC: Moving extremities occasionally Results Result Diagram: 06/17/17 0600 06/17/17 0600 Results 24 hrs Laboratory Tests Test 06/16/17 12:06 06/16/17 14:11 06/16/17 16:04 06/16/17 18:06 Bedside Glucose 111 108 118 138 Test 06/16/17 20:52 06/16/17 22:10 06/16/17 23:37 06/17/17 02:17 Bedside Glucose 112 136 115 133 Test 06/17/17 04:27 06/17/17 05:09 06/17/17 06:00 06/17/17 06:03 Bedside Glucose 132 114 Lab Scanned Report BLOOD TRANSFUSION White Blood Count 9.8 # Red Blood Count 3.35 #L Hemoglobin 8.7 #L Hematocrit 27.7 L Mean Corpuscular Volume 82.7 Mean Corpuscular Hemoglobin 26.0 L Mean Corpuscular Hemoglobin Concent 31.4 L Red Cell Distribution Width 17.5 H Platelet Count 103 L Mean Platelet Volume 12.0 H Neutrophils % 88.2 H Lymphocytes % 5.3 L Monocytes % 5.2 Eosinophils % 0.5 Basophils % 0.2 Nucleated Red Blood Cells % 0.0 Neutrophils # 8.7 H Lymphocytes # 0.5 L Monocytes # 0.5 Eosinophils # 0.1 Basophils # 0.0 Nucleated Red Blood Cells # 0.0 Sodium Level 145 H Potassium Level 3.8 Chloride Level 105 Carbon Dioxide Level 30 Anion Gap 14 Blood Urea Nitrogen 30 H Creatinine 1.01 Glucose Level 107 Calcium Level 8.1 L Phosphorus Level 2.9 Magnesium Level 2.2 Total Bilirubin 1.8 H Direct Bilirubin 0.00 Indirect Bilirubin 1.8 H Aspartate Amino Transf (AST/SGOT) 30 Alanine Aminotransferase (ALT/SGPT) 65 Alkaline Phosphatase 69 Total Protein 4.9 L Albumin 2.5 L Globulin 2.40 Albumin/Globulin Ratio 1.04 Test 06/17/17 08:15 06/17/17 10:01 Bedside Glucose 123 103 Medications Medications Current Medications Ondansetron HCl (Zofran Inj) 4 mg Q6H PRN IV NAUSEA AND/OR VOMITING; Start at 03:00 Acetaminophen (Tylenol Tab) 650 mg Q6H PRN PO PAIN LEVEL 1-3 OR FEVER; Start at 03:00 Pantoprazole 40 mg 40 mg DAILY@06 IV Last administered on 06/17/17 06:00; Admin Dose 40 MG; Start 06/14/17 at 06:00 Sodium Chloride 1,000 ml @ 80 mls/hr [id number] IV Last administered on 06/16/17 18:08; Admin Dose 80 MLS/HR; Start 06/14/17 at 09:00 Vancomycin HCl/ Sodium Chloride (Vancocin/NS) 250 ml @ 83.333 mls/ hr Q24H IVPB Last administered on 06/16/17 22:06; Admin Dose 83.333 MLS/HR; Start 06/14 at 20:00 Miscellaneous Information (Pending Santyl Order For Wound Care) This patient meza... PRN PRN XX WOUND CARE; Start 06/14/17 at 15:00 Collagenase (Santyl) 1 applic DAILY TOP Last administered on 06/17/17 09:28; Admin Dose 1 APPLIC; Start 06/15/17 at 09:00 Collagenase 1 applic 1 applic PRN PRN TOP WOUND CARE; Start 06/14/17 at 16:00 Propofol (Diprivan) 100 ml @ 2.55 mls/hr Q12H IV Last administered on 04:31; Admin Dose 4.08 MLS/HR; Start 06/15/17 at 04:30 Miscellaneous Information 1 ea NOTE XX ; Start 06/15/17 at 07:00 Glucose (Glutose) 15 gm Q15M PRN PO DECREASED GLUCOSE; Start 06/15/17 at 07:00 Glucose (Glutose) 22.5 gm Q15M PRN PO DECREASED GLUCOSE; Start 06/15/17 at 07:00 Glucagon (Glucagen) 1 mg Q15M PRN IM DECREASED GLUCOSE; Start 06/15/17 at 07:00 Glucose (Glutose) 15 gm Q15M PRN BUCCAL DECREASED GLUCOSE; Start 06/15/17 at 07: 00 Diagnostic Test (Pha) (Accu-Chek) 1 ea Q1H XX Last administered on 06/17/17 09: 29; Admin Dose 1 EA; Start 06/15/17 at 10:00 Dextrose (D50w Syringe) 25 ml Q15M PRN IV Till BS 80 mg/dL or above x2; Start 06/15/17 at 10:00 Dextrose 50 ml 50 ml Q15M PRN IV Till BS 80 mg/dL or above x2; Start 06/15/17 at 10:00 Levetiracetam 100 ml @ 400 mls/hr Q12 IVPB Last administered on 06/17/17 09:28 ; Admin Dose 400 MLS/HR; Start 06/15/17 at 11:00 Piperacillin Sod/ Tazobactam Sod (Zosyn 3.375gm/ 100 ml (Pmx)) 100 ml @ 200 mls /hr Q6 IVPB Last administered on 06/17/17 06:00; Admin Dose 200 MLS/HR; Start 06/15/17 at 14:30 IV Flush 10 ml 10 ml PRN PRN IV IV PROTOCOL; Start 06/15/17 at 14:30 Norepinephrine/ Dextrose (Levophed/D5W) 500 ml @ 0 mls/hr TITRATE IV ; Start 06/16/17 at 16:00 KONSTANTIN VÁZQUEZ Jun 17, 2017 10:33
[2017-06-17] MEDS ORDERED: DEXTROSE 50% 50 ML SYRINGE IV PRN ×2 (11:00)
[2017-06-17] MEDS: INSULIN ASPART [NOVOLOG] 3 ML PEN SC SCH ×3 (11:30→21:00)
[2017-06-17] MEDS: BALSAM PERU/CASTOR OIL 60 GM TUBE TOP SCH ×2 (12:00→23:42)
--- NOTE | 2017-06-17 12:25 | CONS ---
Date/Time of Note Date/Time of Note DATE: 06/17/17 TIME: 12:22 Assessment/Plan Assessment/Plan Additional Assessment/Plan Data setting; AC of 16, tidal volume 500, PEEP of 5, 40% FiO2. Chest x-ray was reviewed from yesterday afternoon which is showing again extensive infiltrative changes involving the right lung. Assessment and recommendations; 1. Patient admitted with severe pneumonia involving the right lung, it is difficult to distinguish between acute pneumonia versus chronic volume loss on the right side due to prior lobectomy for lung cancer. 2. Parkinson's disease. 3. Improving hemodynamics. Continue current treatment. Patient will need to have a bronchoscopy performed. I will schedule that for tomorrow morning. Consultation Date/Type/Reason Admit Date/Time Jun 14, 2017 at 02:51 Initial Consult Date 06/14/17 Type of Consultation: Pulmonary/critical care Referring Provider: KONSTANTIN VÁZQUEZ 24 HR Interval Summary Free Text/Dictation Patient condition remains critical. Patient however has not required any further pressor support. Has been off sedation. Patient is now awake and somewhat responsive. Has remained hemodynamically stable. General exam; elderly male, orally intubated, currently in no distress. Exam/Review of Systems Vital Signs Vitals Vital Signs Date Time Temp Pulse Resp B/P Pulse Ox O2 Delivery O2 Flow Rate FiO2 06/17/17 09:45 57 0 100 06/17/17 09:00 116/45 06/17/17 08:00 98.9 06/17/17 05:02 40 06/17/17 00:00 Mechanical Ventilator 06/14/17 12:30 15.0 Intake and Output 06/16/17 06/16/17 06/17/17 15:00 23:00 07:00 Intake Total 1333.1955 ml 1322.5 ml 610 ml Output Total 462 ml 650 ml 350 ml Balance 871.1955 ml 672.5 ml 260 ml Exam HEENT exam; supple neck. No neck masses. No thyromegaly. Pupils are small bilaterally. Orally intubated. Next Chest exam; diminished breath sounds right lung. Left lung is fairly clear to auscultation. S1-S2 audible, no murmurs. Regular rhythm. Abdomen exam; soft, no organomegaly. Bowel sounds audible. Extremity exam; patient has multiple ecchymosis involving all 4 extremities. [employer] exam; he is awake but unresponsive to any commands. Results Result Diagram: 06/17/17 0600 06/17/17 0600 Results 24 hrs Laboratory Tests Test 06/16/17 14:11 06/16/17 16:04 06/16/17 18:06 06/16/17 20:52 Bedside Glucose 108 118 138 112 Test 06/16/17 22:10 06/16/17 23:37 06/17/17 02:17 06/17/17 04:27 Bedside Glucose 136 115 133 132 Test 06/17/17 05:09 06/17/17 06:00 06/17/17 06:03 06/17/17 08:15 Lab Scanned Report BLOOD TRANSFUSION White Blood Count 9.8 # Red Blood Count 3.35 #L Hemoglobin 8.7 #L Hematocrit 27.7 L Mean Corpuscular Volume 82.7 Mean Corpuscular Hemoglobin 26.0 L Mean Corpuscular Hemoglobin Concent 31.4 L Red Cell Distribution Width 17.5 H Platelet Count 103 L Mean Platelet Volume 12.0 H Neutrophils % 88.2 H Lymphocytes % 5.3 L Monocytes % 5.2 Eosinophils % 0.5 Basophils % 0.2 Nucleated Red Blood Cells % 0.0 Neutrophils # 8.7 H Lymphocytes # 0.5 L Monocytes # 0.5 Eosinophils # 0.1 Basophils # 0.0 Nucleated Red Blood Cells # 0.0 Sodium Level 145 H Potassium Level 3.8 Chloride Level 105 Carbon Dioxide Level 30 Anion Gap 14 Blood Urea Nitrogen 30 H Creatinine 1.01 Glucose Level 107 Calcium Level 8.1 L Phosphorus Level 2.9 Magnesium Level 2.2 Total Bilirubin 1.8 H Direct Bilirubin 0.00 Indirect Bilirubin 1.8 H Aspartate Amino Transf (AST/SGOT) 30 Alanine Aminotransferase (ALT/SGPT) 65 Alkaline Phosphatase 69 Total Protein 4.9 L Albumin 2.5 L Globulin 2.40 Albumin/Globulin Ratio 1.04 Bedside Glucose 114 123 Test 06/17/17 10:01 06/17/17 11:40 Bedside Glucose 103 119 Medications Medications Current Medications Ondansetron HCl (Zofran Inj) 4 mg Q6H PRN IV NAUSEA AND/OR VOMITING; Start at 03:00 Acetaminophen (Tylenol Tab) 650 mg Q6H PRN PO PAIN LEVEL 1-3 OR FEVER; Start at 03:00 Pantoprazole 40 mg 40 mg DAILY@06 IV Last administered on 06/17/17 06:00; Admin Dose 40 MG; Start 06/14/17 at 06:00 Vancomycin HCl/ Sodium Chloride (Vancocin/NS) 250 ml @ 83.333 mls/ hr Q24H IVPB Last administered on 06/16/17 22:06; Admin Dose 83.333 MLS/HR; Start 06/14 at 20:00 Miscellaneous Information (Pending Santyl Order For Wound Care) This patient meza... PRN PRN XX WOUND CARE; Start 06/14/17 at 15:00 Collagenase (Santyl) 1 applic DAILY TOP Last administered on 06/17/17 09:28; Admin Dose 1 APPLIC; Start 06/15/17 at 09:00 Collagenase 1 applic 1 applic PRN PRN TOP WOUND CARE; Start 06/14/17 at 16:00 Propofol (Diprivan) 100 ml @ 2.55 mls/hr Q12H IV Last administered on 04:31; Admin Dose 4.08 MLS/HR; Start 06/15/17 at 04:30 Miscellaneous Information 1 ea NOTE XX ; Start 06/15/17 at 07:00 Glucose (Glutose) 15 gm Q15M PRN PO DECREASED GLUCOSE; Start 06/15/17 at 07:00 Glucose (Glutose) 22.5 gm Q15M PRN PO DECREASED GLUCOSE; Start 06/15/17 at 07:00 Glucagon (Glucagen) 1 mg Q15M PRN IM DECREASED GLUCOSE; Start 06/15/17 at 07:00 Glucose 15 gm 15 gm Q15M PRN BUCCAL DECREASED GLUCOSE; Start 06/15/17 at 07:00 Levetiracetam 100 ml @ 400 mls/hr Q12 IVPB Last administered on 06/17/17 09:28 ; Admin Dose 400 MLS/HR; Start 06/15/17 at 11:00 Piperacillin Sod/ Tazobactam Sod (Zosyn 3.375gm/ 100 ml (Pmx)) 100 ml @ 200 mls /hr Q6 IVPB Last administered on 06/17/17 06:00; Admin Dose 200 MLS/HR; Start 06/15/17 at 14:30 IV Flush 10 ml 10 ml PRN PRN IV IV PROTOCOL; Start 06/15/17 at 14:30 Norepinephrine/ Dextrose (Levophed/D5W) 500 ml @ 0 mls/hr TITRATE IV ; Start 06/16/17 at 16:00 Diagnostic Test (Pha) (Accu-Chek) 1 ea 02 XX ; Start 06/18/17 at 02:00 Diagnostic Test (Pha) (Accu-Chek) 1 ea 02 XX ; Start 06/18/17 at 02:00 Insulin Glargine (Lantus) 13 unit DAILY@20 SC ; Start 06/17/17 at 20:00 Dextrose (D50w Syringe) 25 ml Q15M PRN IV DECREASED GLUCOSE; Start 06/17/17 at 11:00 Dextrose (D50w Syringe) 50 ml Q15M PRN IV DECREASED GLUCOSE; Start 06/17/17 at 11:00 STEPHANIE PATTERSON Jun 17, 2017 12:25
--- NOTE | 2017-06-17 14:11 | CONS ---
Date/Time of Note Date/Time of Note DATE: 06/17/17 TIME: 14:08 Assessment/Plan Assessment/Plan Chief Complaint/Hosp Course Refer to Assesment and Plan Problems: Additional Assessment/Plan Family meeting done with patient's son and [id number]. We discussed his current medical condition and the fact that he is improving and follow simple commands hopefully he will be extubated soon. Family members had many questions concerning his current condition fact that he was discharged from another facility and was readmitted to [facility] within 3 days after discharge with similar medical condition. Apparently he was intubated at outside hospital also. We discussed his cognitive ability and ability to do all his ADLs prior to the first hospitalization apparently was very active and cognitively intact. We discussed her expectation goals of care fears concerns ethical issues in addition. I have asked family to consider changing his CODE STATUS to either DO NOT RESUSCITATE or chemical code primarily because if he has another catastrophic event chance of recovery of much less. They were receptive to this my impressions where they had thought about this before and it seemed to be comfortable with intubation future but no CPR. As patient will be transferred to [place] in the near future that discussion should be continued with their palliative care group. Consultation Date/Type/Reason Admit Date/Time Jun 14, 2017 at 02:51 Initial Consult Date 06/15/17 Type of Consultation: Palliative care Referring Provider: KONSTANTIN VÁZQUEZ Exam/Review of Systems Vital Signs Vitals Vital Signs Date Time Temp Pulse Resp B/P Pulse Ox O2 Delivery O2 Flow Rate FiO2 06/17/17 13:00 57 16 125/41 100 06/17/17 12:00 99.9 06/17/17 05:02 40 06/17/17 00:00 Mechanical Ventilator 06/14/17 12:30 15.0 Intake and Output 06/16/17 06/16/17 06/17/17 15:00 23:00 07:00 Intake Total 1333.1955 ml 1322.5 ml 610 ml Output Total 462 ml 650 ml 350 ml Balance 871.1955 ml 672.5 ml 260 ml Results Result Diagram: 06/17/17 0600 06/17/17 0600 Results 24 hrs Laboratory Tests Test 06/16/17 14:11 06/16/17 16:04 06/16/17 18:06 06/16/17 20:52 Bedside Glucose 108 118 138 112 Test 06/16/17 22:10 06/16/17 23:37 06/17/17 02:17 06/17/17 04:27 Bedside Glucose 136 115 133 132 Test 06/17/17 05:09 06/17/17 06:00 06/17/17 06:03 06/17/17 08:15 Lab Scanned Report BLOOD TRANSFUSION White Blood Count 9.8 # Red Blood Count 3.35 #L Hemoglobin 8.7 #L Hematocrit 27.7 L Mean Corpuscular Volume 82.7 Mean Corpuscular Hemoglobin 26.0 L Mean Corpuscular Hemoglobin Concent 31.4 L Red Cell Distribution Width 17.5 H Platelet Count 103 L Mean Platelet Volume 12.0 H Neutrophils % 88.2 H Lymphocytes % 5.3 L Monocytes % 5.2 Eosinophils % 0.5 Basophils % 0.2 Nucleated Red Blood Cells % 0.0 Neutrophils # 8.7 H Lymphocytes # 0.5 L Monocytes # 0.5 Eosinophils # 0.1 Basophils # 0.0 Nucleated Red Blood Cells # 0.0 Sodium Level 145 H Potassium Level 3.8 Chloride Level 105 Carbon Dioxide Level 30 Anion Gap 14 Blood Urea Nitrogen 30 H Creatinine 1.01 Glucose Level 107 Calcium Level 8.1 L Phosphorus Level 2.9 Magnesium Level 2.2 Total Bilirubin 1.8 H Direct Bilirubin 0.00 Indirect Bilirubin 1.8 H Aspartate Amino Transf (AST/SGOT) 30 Alanine Aminotransferase (ALT/SGPT) 65 Alkaline Phosphatase 69 Total Protein 4.9 L Albumin 2.5 L Globulin 2.40 Albumin/Globulin Ratio 1.04 Bedside Glucose 114 123 Test 06/17/17 10:01 06/17/17 11:40 Bedside Glucose 103 119 Medications Medications Current Medications Ondansetron HCl (Zofran Inj) 4 mg Q6H PRN IV NAUSEA AND/OR VOMITING; Start at 03:00 Acetaminophen (Tylenol Tab) 650 mg Q6H PRN PO PAIN LEVEL 1-3 OR FEVER; Start at 03:00 Pantoprazole 40 mg 40 mg DAILY@06 IV Last administered on 06/17/17t 06:00; Admin Dose 40 MG; Start 06/14/17 at 06:00 Vancomycin HCl/ Sodium Chloride (Vancocin/NS) 250 ml @ 83.333 mls/ hr Q24H IVPB Last administered on 06/16/17 22:06; Admin Dose 83.333 MLS/HR; Start 06/14 at 20:00 Miscellaneous Information (Pending Santyl Order For Wound Care) This patient meza... PRN PRN XX WOUND CARE; Start 06/14/17 at 15:00 Collagenase (Santyl) 1 applic DAILY TOP Last administered on 06/17/17 09:28; Admin Dose 1 APPLIC; Start 06/15/17 at 09:00 Collagenase 1 applic 1 applic PRN PRN TOP WOUND CARE; Start 06/14/17 at 16:00 Propofol (Diprivan) 100 ml @ 2.55 mls/hr Q12H IV Last administered on 04:31; Admin Dose 4.08 MLS/HR; Start 06/15/17 at 04:30 Miscellaneous Information 1 ea NOTE XX ; Start 06/15/17 at 07:00 Glucose (Glutose) 15 gm Q15M PRN PO DECREASED GLUCOSE; Start 06/15/17 at 07:00 Glucose (Glutose) 22.5 gm Q15M PRN PO DECREASED GLUCOSE; Start 06/15/17 at 07:00 Glucagon (Glucagen) 1 mg Q15M PRN IM DECREASED GLUCOSE; Start 06/15/17 at 07:00 Glucose 15 gm 15 gm Q15M PRN BUCCAL DECREASED GLUCOSE; Start 06/15/17 at 07:00 Levetiracetam 100 ml @ 400 mls/hr Q12 IVPB Last administered on 06/17/17 09:28 ; Admin Dose 400 MLS/HR; Start 06/15/17 at 11:00 Piperacillin Sod/ Tazobactam Sod (Zosyn 3.375gm/ 100 ml (Pmx)) 100 ml @ 200 mls /hr Q6 IVPB Last administered on 06/17/17 06:00; Admin Dose 200 MLS/HR; Start 06/15/17 at 14:30 IV Flush 10 ml 10 ml PRN PRN IV IV PROTOCOL; Start 06/15/17 at 14:30 Norepinephrine/ Dextrose (Levophed/D5W) 500 ml @ 0 mls/hr TITRATE IV ; Start 06/16/17 at 16:00 Diagnostic Test (Pha) (Accu-Chek) 1 ea 02 XX ; Start 06/18/17 at 02:00 Diagnostic Test (Pha) (Accu-Chek) 1 XX ; Start 06/18/17 at 02:00 Insulin Glargine (Lantus) 13 unit DAILY@20 SC ; Start 06/17/17 at 20:00 Dextrose (D50w Syringe) 25 ml Q15M PRN IV DECREASED GLUCOSE; Start 06/17/17 at 11:00 Dextrose (D50w Syringe) 50 ml Q15M PRN IV DECREASED GLUCOSE; Start 06/17/17 at 11:00 CLAUDE ROMERO Jun 17, 2017 14:10
--- NOTE | 2017-06-17 15:20 | CONS ---
Date/Time of Note Date/Time of Note DATE: 06/17/17 TIME: 15:19 Assessment/Plan Assessment/Plan Additional Assessment/Plan Cardiopulmonary arrest Shock Respiratory failure, vent dependent Preserved ejection fraction Sepsis Possible pneumonia with lung mass COPD on home oxygen Acute blood loss anemia -Patient currently off IV pressors. Antibiotics as per primary team. Vent management as per our pulmonary colleagues. Consultation Date/Type/Reason Admit Date/Time Jun 14, 2017 at 02:51 Initial Consult Date 06/15/17 Type of Consultation: cv Referring Provider: KONSTANTIN VÁZQUEZ 24 HR Interval Summary Free Text/Dictation Patient more awake today. Following commands as per nursing staff. Exam/Review of Systems Vital Signs Vitals Vital Signs Date Time Temp Pulse Resp B/P Pulse Ox O2 Delivery O2 Flow Rate FiO2 06/17/17 13:00 57 16 125/41 100 06/17/17 12:00 99.9 06/17/17 05:02 40 06/17/17 00:00 Mechanical Ventilator 06/14/17 12:30 15.0 Intake and Output 06/16/17 06/16/17 06/17/17 15:00 23:00 07:00 Intake Total 1333.1955 ml 1322.5 ml 610 ml Output Total 462 ml 650 ml 350 ml Balance 871.1955 ml 672.5 ml 260 ml Exam Sleeping but arousable, remains intubated, no apparent distress Head: normocephalic ENMT: intubated Respiratory: other (Coarse breath sounds bilaterally, no wheezing) Cardiovascular: other (S1-S2 heard), regular rate and rhythm Gastrointestinal: bowel sounds, non-tender, soft Extremities: edema Results Result Diagram: 06/17/17 0600 06/17/17 0600 Results 24 hrs Laboratory Tests Test 06/16/17 16:04 06/16/17 18:06 06/16/17 20:52 06/16/17 22:10 Bedside Glucose 118 138 112 136 Test 06/16/17 23:37 06/17/17 02:17 06/17/17 04:27 06/17/17 05:09 Bedside Glucose 115 133 132 Lab Scanned Report BLOOD TRANSFUSION Test 06/17/17 06:00 06/17/17 06:03 06/17/17 08:15 06/17/17 10:01 White Blood Count 9.8 # Red Blood Count 3.35 #L Hemoglobin 8.7 #L Hematocrit 27.7 L Mean Corpuscular Volume 82.7 Mean Corpuscular Hemoglobin 26.0 L Mean Corpuscular Hemoglobin Concent 31.4 L Red Cell Distribution Width 17.5 H Platelet Count 103 L Mean Platelet Volume 12.0 H Neutrophils % 88.2 H Lymphocytes % 5.3 L Monocytes % 5.2 Eosinophils % 0.5 Basophils % 0.2 Nucleated Red Blood Cells % 0.0 Neutrophils # 8.7 H Lymphocytes # 0.5 L Monocytes # 0.5 Eosinophils # 0.1 Basophils # 0.0 Nucleated Red Blood Cells # 0.0 Sodium Level 145 H Potassium Level 3.8 Chloride Level 105 Carbon Dioxide Level 30 Anion Gap 14 Blood Urea Nitrogen 30 H Creatinine 1.01 Glucose Level 107 Calcium Level 8.1 L Phosphorus Level 2.9 Magnesium Level 2.2 Total Bilirubin 1.8 H Direct Bilirubin 0.00 Indirect Bilirubin 1.8 H Aspartate Amino Transf (AST/SGOT) 30 Alanine Aminotransferase (ALT/SGPT) 65 Alkaline Phosphatase 69 Total Protein 4.9 L Albumin 2.5 L Globulin 2.40 Albumin/Globulin Ratio 1.04 Bedside Glucose 114 123 103 Test 06/17/17 11:40 Bedside Glucose 119 Medications Medications Current Medications Ondansetron HCl (Zofran Inj) 4 mg Q6H PRN IV NAUSEA AND/OR VOMITING; Start at 03:00 Acetaminophen (Tylenol Tab) 650 mg Q6H PRN PO PAIN LEVEL 1-3 OR FEVER; Start at 03:00 Pantoprazole 40 mg 40 mg DAILY@06 IV Last administered on 06/17/17 06:00; Admin Dose 40 MG; Start 06/14/17 at 06:00 Vancomycin HCl/ Sodium Chloride (Vancocin/NS) 250 ml @ 83.333 mls/ hr Q24H IVPB Last administered on 06/16/17 22:06; Admin Dose 83.333 MLS/HR; Start 06/14 at 20:00 Miscellaneous Information (Pending Santyl Order For Wound Care) This patient meza... PRN PRN XX WOUND CARE; Start 06/14/17 at 15:00 Collagenase (Santyl) 1 applic DAILY TOP Last administered on 06/17/17 09:28; Admin Dose 1 APPLIC; Start 06/15/17 at 09:00 Collagenase 1 applic 1 applic PRN PRN TOP WOUND CARE; Start 06/14/17 at 16:00 Propofol (Diprivan) 100 ml @ 2.55 mls/hr Q12H IV Last administered on 04:31; Admin Dose 4.08 MLS/HR; Start 06/15/17 at 04:30 Miscellaneous Information 1 ea NOTE XX ; Start 06/15/17 at 07:00 Glucose (Glutose) 15 gm Q15M PRN PO DECREASED GLUCOSE; Start 06/15/17 at 07:00 Glucose (Glutose) 22.5 gm Q15M PRN PO DECREASED GLUCOSE; Start 06/15/17 at 07:00 Glucagon (Glucagen) 1 mg Q15M PRN IM DECREASED GLUCOSE; Start 06/15/17 at 07:00 Glucose 15 gm 15 gm Q15M PRN BUCCAL DECREASED GLUCOSE; Start 06/15/17 at 07:00 Levetiracetam 100 ml @ 400 mls/hr Q12 IVPB Last administered on 06/17/17 09:28 ; Admin Dose 400 MLS/HR; Start 06/15/17 at 11:00 Piperacillin Sod/ Tazobactam Sod (Zosyn 3.375gm/ 100 ml (Pmx)) 100 ml @ 200 mls /hr Q6 IVPB Last administered on 06/17/17 14:24; Admin Dose 200 MLS/HR; Start 06/15/17 at 14:30 IV Flush 10 ml 10 ml PRN PRN IV IV PROTOCOL; Start 06/15/17 at 14:30 Norepinephrine/ Dextrose (Levophed/D5W) 500 ml @ 0 mls/hr TITRATE IV ; Start 06/16/17 at 16:00 Diagnostic Test (Pha) (Accu-Chek) 1 ea 02 XX ; Start 06/18/17 at 02:00 Diagnostic Test (Pha) (Accu-Chek) 1 ea 02 XX ; Start 06/18/17 at 02:00 Insulin Glargine (Lantus) 13 unit DAILY@20 SC ; Start 06/17/17 at 20:00 Dextrose (D50w Syringe) 25 ml Q15M PRN IV DECREASED GLUCOSE; Start 06/17/17 at 11:00 Dextrose (D50w Syringe) 50 ml Q15M PRN IV DECREASED GLUCOSE; Start 06/17/17 at 11:00 Augie Encarnacion DO Jun 17, 2017 15:20
--- NOTE | 2017-06-17 16:13 | PN ---
Date/Time of Note Date/Time of Note DATE: 06/17/17 TIME: 16:10 Assessment/Plan VTE Prophylaxis VTE Prophylaxis Intervention: contraindicated VTE Contraindication Reason: bleeding Lines/Catheters IV Catheter Type (from Nrsg): PICC Line Central line still needed: Yes Urinary Cath still in place: Yes Reason Cath still needed: urinary retention Assessment/Plan Assessment/Plan Assessment * Anemia Hemoptysis vs others * Acute respiratory failure * S/P cardiac arrest * Diabetes mellitus * Sepsis * Hx of lung cancer * History of lobectomy Plan * Transfuse per protocol * monitor hemoglobin and hematocrit daily * Pantoprazole 40 mg BID * Case discussed with Dr Zhang * further orders will depend on clinical coure Subjective 24 Hr Interval Summary Free Text/Dictation * Course reviewed * Patient going to MRI * No untoward events overnight Exam/Review of Systems Vital Signs Vitals Vital Signs Date Time Temp Pulse Resp B/P Pulse Ox O2 Delivery O2 Flow Rate FiO2 06/17/17 15:30 57 16 99 40 06/17/17 13:00 125/41 06/17/17 12:00 99.9 06/17/17 00:00 Mechanical Ventilator 06/14/17 12:30 15.0 Intake and Output 06/16/17 06/16/17 06/17/17 15:00 23:00 07:00 Intake Total 1333.1955 ml 1322.5 ml 610 ml Output Total 462 ml 650 ml 350 ml Balance 871.1955 ml 672.5 ml 260 ml Exam Constitutional: frail ENMT: intubated Neck: non-tender, supple Respiratory: crackles/rales, diminished breath sounds Cardiovascular: regular rate and rhythm Gastrointestinal: distended, non-tender, soft Musculoskeletal: muscle weakness Extremities: normal pulses Neurological: lethargic Skin: ecchymosis, rash or lesions Lymph: nl lymph nodes Results Result Diagram: 06/17/17 0600 06/17/17 0600 Results 24 hrs Laboratory Tests Test 06/16/17 18:06 06/16/17 20:52 06/16/17 22:10 06/16/17 23:37 Bedside Glucose 138 112 136 115 Test 06/17/17 02:17 06/17/17 04:27 06/17/17 05:09 06/17/17 06:00 Bedside Glucose 133 132 Lab Scanned Report BLOOD TRANSFUSION White Blood Count 9.8 # Red Blood Count 3.35 #L Hemoglobin 8.7 #L Hematocrit 27.7 L Mean Corpuscular Volume 82.7 Mean Corpuscular Hemoglobin 26.0 L Mean Corpuscular Hemoglobin Concent 31.4 L Red Cell Distribution Width 17.5 H Platelet Count 103 L Mean Platelet Volume 12.0 H Neutrophils % 88.2 H Lymphocytes % 5.3 L Monocytes % 5.2 Eosinophils % 0.5 Basophils % 0.2 Nucleated Red Blood Cells % 0.0 Neutrophils # 8.7 H Lymphocytes # 0.5 L Monocytes # 0.5 Eosinophils # 0.1 Basophils # 0.0 Nucleated Red Blood Cells # 0.0 Sodium Level 145 H Potassium Level 3.8 Chloride Level 105 Carbon Dioxide Level 30 Anion Gap 14 Blood Urea Nitrogen 30 H Creatinine 1.01 Glucose Level 107 Calcium Level 8.1 L Phosphorus Level 2.9 Magnesium Level 2.2 Total Bilirubin 1.8 H Direct Bilirubin 0.00 Indirect Bilirubin 1.8 H Aspartate Amino Transf (AST/SGOT) 30 Alanine Aminotransferase (ALT/SGPT) 65 Alkaline Phosphatase 69 Total Protein 4.9 L Albumin 2.5 L Globulin 2.40 Albumin/Globulin Ratio 1.04 Test 06/17/17 06:03 06/17/17 08:15 06/17/17 10:01 06/17/17 11:40 Bedside Glucose 114 123 103 119 Medications Medications Current Medications Ondansetron HCl (Zofran Inj) 4 mg Q6H PRN IV NAUSEA AND/OR VOMITING; Start at 03:00 Acetaminophen (Tylenol Tab) 650 mg Q6H PRN PO PAIN LEVEL 1-3 OR FEVER; Start at 03:00 Pantoprazole (Protonix Iv) 40 mg DAILY@06 IV Last administered on 06/17/17 06: 00; Admin Dose 40 MG; Start 06/14/17 at 06:00 Miscellaneous Information (Pending Santyl Order For Wound Care) This patient meza... PRN PRN XX WOUND CARE; Start 06/14/17 at 15:00 Collagenase (Santyl) 1 applic DAILY TOP Last administered on 06/17/17 09:28; Admin Dose 1 APPLIC; Start 06/15/17 at 09:00 Collagenase 1 applic 1 applic PRN PRN TOP WOUND CARE; Start 06/14/17 at 16:00 Propofol (Diprivan) 100 ml @ 2.55 mls/hr Q12H IV Last administered on 04:31; Admin Dose 4.08 MLS/HR; Start 06/15/17 at 04:30 Miscellaneous Information 1 ea NOTE XX ; Start 06/15/17 at 07:00 Glucose (Glutose) 15 gm Q15M PRN PO DECREASED GLUCOSE; Start 06/15/17 at 07:00 Glucose (Glutose) 22.5 gm Q15M PRN PO DECREASED GLUCOSE; Start 06/15/17 at 07:00 Glucagon (Glucagen) 1 mg Q15M PRN IM DECREASED GLUCOSE; Start 06/15/17 at 07:00 Glucose 15 gm 15 gm Q15M PRN BUCCAL DECREASED GLUCOSE; Start 06/15/17 at 07:00 Levetiracetam 100 ml @ 400 mls/hr Q12 IVPB Last administered on 06/17/17 09:28 ; Admin Dose 400 MLS/HR; Start 06/15/17 at 11:00 Piperacillin Sod/ Tazobactam Sod (Zosyn 3.375gm/ 100 ml (Pmx)) 100 ml @ 200 mls /hr Q6 IVPB Last administered on 06/17/17 14:24; Admin Dose 200 MLS/HR; Start 06/15/17 at 14:30 IV Flush 10 ml 10 ml PRN PRN IV IV PROTOCOL; Start 06/15/17 at 14:30 Norepinephrine/ Dextrose (Levophed/D5W) 500 ml @ 0 mls/hr TITRATE IV ; Start 06/16/17 at 16:00 Diagnostic Test (Pha) (Accu-Chek) 1 ea 02 XX ; Start 06/18/17 at 02:00 Diagnostic Test (Pha) (Accu-Chek) 1 ea 02 XX ; Start 06/18/17 at 02:00 Insulin Glargine (Lantus) 13 unit DAILY@20 SC ; Start 06/17/17 at 20:00 Dextrose (D50w Syringe) 25 ml Q15M PRN IV DECREASED GLUCOSE; Start 06/17/17 at 11:00 Dextrose 50 ml 50 ml Q15M PRN IV DECREASED GLUCOSE; Start 06/17/17 at 11:00 Vancomycin HCl/ Sodium Chloride (Vancocin/NS) 250 ml @ 83.333 mls/ hr Q24H IVPB ; Start 06/17/17 at 22:00 Miscellaneous Information (*Rx Drug Level Order Reminder*) 1 ONCE ONCE XX ; Start 06/17/17 at 21:00; Stop 06/17/17 at 21:01 RAJEEV DYER NP Jun 17, 2017 16:13
--- NOTE | 2017-06-17 17:03 | RADRPT ---
PROCEDURE: MRI Brain without contrast. CLINICAL INDICATION: Severe sepsis. Altered mental status. Evaluate for hypoxic injury. TECHNIQUE: An MRI of the brain was performed utilizing the following sequences: Sagittal and axial T1 weighted, axial T2 weighted, axial diffusion weighted with ADC mapping, coronal GRE, and axial F LAIR. COMPARISON: None. FINDINGS: There is focal area of restricted diffusion in the right paramedian parietal lobe consistent with ac quinton/recent infarct. Larger area of prior old right parietal infarct is noted. Small left frontal and parietal juxtacortical infarcts are also noted. Small old bilateral cerebellar infarcts are noted p er No hypointense signal abnormalities are seen on the GRE images to suggest the presence of blood d egradation products. There is no evidence of intracranial hemorrhage, mass effect, or midline shift . No extra-axial fluid collections are seen. The ventricles and sulci are moderately enlarged indica tive of volume loss. There are additional mild to moderate scattered foci of T2 FLAIR hyperintensity in the periventricul ar, deep, and subcortical white matter, which are nonspecific in etiology but likely reflect chronic small vessel ischemic changes. No abnormal intracranial vascular flow void is noted. The visualized paranasal sinuses demonstrate p robable mucous retention cyst in the right maxillary sinus, otherwise mild scattered mucosal thicken ing. There is thinning of bilateral lens indicative of prior lens replacement. There is mild right a nd moderate left mastoid air cells effusion. There is retained secretion in the posterior nasopharyn x and nasal cavities likely due to intubation. There is thinning of bilateral lens indicative of tammy or lens replacement. IMPRESSION: 1. Focal acute/recent infarct in the right paramedian parietal lobe. 2. Old right parietal infarct. Small left frontal and parietal juxtacortical infarcts. Small old bi lateral cerebellar infarcts. 3. No acute intracranial hemorrhage. 4. Mild to moderate chronic small vessel ischemic changes. 5. Moderate generalized cerebral volume loss. 6. Mild paranasal sinus disease. Mild right and moderate left mastoid air cells effusion. A call report was made and above findings were discussed and acknowledged by Dr. DORY fajardo 06/17/2017 4:51 PM . RPTAT: HH .Stanislav Holman MD, MD Date Time Electronically viewed and signed by .Stanislav Holman MD, on 06/17/2017 17:02 .N/
[2017-06-17] MEDS ORDERED: VANCOMYCIN 1.5 GM in SOD CHLORIDE 0.9% 250 ML IVPB SCH (22:00)
[2017-06-17] MEDS: INSULIN GLARGINE [LANtus] 3 ML PEN SC SCH (23:23)
[2017-06-18] VITALS (47 sets, daily range): BP systolic 113–163; BP diastolic 36–76; PULSE 49–65; RESP 0–23
[2017-06-18] MEDS ORDERED: ACCU-CHEK XX SCH ×2 (02:00)
[2017-06-18] MEDS ORDERED: AMIODARONE 150 MG INJ ONE (02:00)
[2017-06-18] MEDS ORDERED: EPINEPHrine 100 MCG/10 ML SYG IV ONE (02:00)
[2017-06-18] MEDS ORDERED: CA CHLORIDE 10% 10 ML SYRINGE ONE (02:00)
[2017-06-18] MEDS ORDERED: DEXTROSE 5% WATER 500 ML BAG ONE (02:00)
[2017-06-18] MEDS ORDERED: AMIODARONE 900 MG INJ ONE (02:00)
[2017-06-18] MEDS: PROPOFOL 100 ML IV SCH ×2 (04:30→15:29)
[2017-06-18 05:59] LABS: ABNORMAL IP MESSAGE 1; BASOPHILS % 0.1 % (0.0-2.0); EOSINOPHILS # 0.1 10^3/ul (0.0-0.5); EOSINOPHILS % 1.3 % (0.0-7.0); HEMATOCRIT 27.1 % (42.0-52.0); HEMOGLOBIN 8.4 g/dl (14.0-18.0); LYMPHOCYTES # 0.3 10^3/ul (0.8-2.9); LYMPHOCYTES % 3.9 % (15.0-51.0); MEAN CORPUSCULAR HEMOGLOBIN 25.9 pg (29.0-33.0); MEAN CORPUSCULAR VOLUME 83.6 fl (82.0-101.0); MEAN PLATELET VOLUME 11.5 fl (7.4-10.4); MONOCYTE # 0.4 10^3/ul (0.3-0.9); MONOCYTES % 5.3 % (0.0-11.0); NEUTROPHIL # 7.4 10^3/ul (1.6-7.5); NEUTROPHILS % 88.9 % (39.0-77.0); PLATELET COUNT 93 10^3/UL (140-415); POSITIVE DIFF @See below; RED BLOOD COUNT 3.24 10^6/ul (4.70-6.10); RED CELL DISTRIBUTION WIDTH 17.2 % (11.5-14.5); WHITE BLOOD COUNT 8.3 10^3/ul (4.8-10.8)
[2017-06-18] MEDS: PANTOPRAZOLE 40 MG INJ IV SCH (06:05)
[2017-06-18] MEDS: PIPER-TAZO 3.375 GM IV (PMX) 100 ML IVPB SCH ×3 (06:05→17:29)
[2017-06-18 06:39] LABS: ALBUMIN 2.4 g/dl (3.3-4.9); ALBUMIN/GLOBULIN RATIO 0.92; BILIRUBIN,INDIRECT 1.4 mg/dl (0-1.1); BILIRUBIN,TOTAL 1.4 mg/dl (0.2-1.3); CALCIUM 8.2 mg/dl (8.4-10.2); CREATININE 0.94 mg/dl (0.61-1.24); MAGNESIUM 2.3 mg/dl (1.7-2.5); PHOSPHORUS 3.1 mg/dl (2.5-4.9); POTASSIUM 3.8 mmol/L (3.5-5.1)
--- NOTE | 2017-06-18 07:43 | CONS ---
Date/Time of Note Date/Time of Note DATE: 06/18/17 TIME: 07:40 Assessment/Plan Assessment/Plan Chief Complaint/Hosp Course Respiratory failure Pneumonia Sepsis syndrome Acute renal failure Encephalopathy resolving Continue current level of care transferred to [place] per case management. Family support, no change in his CODE STATUS per family members and until that is addressed by physicians at [facility]. Problems: Consultation Date/Type/Reason Admit Date/Time Jun 14, 2017 at 02:51 Initial Consult Date 06/15/17 Type of Consultation: Palliative care Referring Provider: KONSTANTIN VÁZQUEZ 24 HR Interval Summary Free Text/Dictation There is no significant change in his clinical conditions over the last 24 hours. However he has tracking me and responding to simple commands this morning, he was doing similarly yesterday. Please refer to my family conference dictation from June 17. Exam/Review of Systems Vital Signs Vitals Vital Signs Date Time Temp Pulse Resp B/P Pulse Ox O2 Delivery O2 Flow Rate FiO2 06/18/17 05:20 58 18 98 40 06/18/17 03:11 98.9 06/18/17 03:00 135/43 06/17/17 00:00 Mechanical Ventilator 06/14/17 12:30 15.0 Intake and Output 06/17/17 06/17/17 06/18/17 15:00 23:00 07:00 Intake Total 780 ml 160 ml 1410 ml Output Total 385 ml 190 ml 400 ml Balance 395 ml -30 ml 1010 ml Exam Respiratory: clear to auscultation, normal air movement Cardiovascular: nl pulses, regular rate and rhythm Neurological: other (Follow simple commands squeezes my hand tracks me) Results Result Diagram: 06/18/17 0544 06/18/17 0544 Results 24 hrs Laboratory Tests Test 06/17/17 08:15 06/17/17 10:01 06/17/17 11:40 06/17/17 17:37 Bedside Glucose 123 103 119 111 Test 06/17/17 21:10 06/17/17 21:34 06/17/17 23:06 06/18/17 05:44 Vancomycin Level Trough 13.8 Bedside Glucose 159 162 White Blood Count 8.3 Red Blood Count 3.24 L Hemoglobin 8.4 L Hematocrit 27.1 L Mean Corpuscular Volume 83.6 Mean Corpuscular Hemoglobin 25.9 L Mean Corpuscular Hemoglobin Concent 31.0 L Red Cell Distribution Width 17.2 H Platelet Count 93 L Mean Platelet Volume 11.5 H Neutrophils % 88.9 H Lymphocytes % 3.9 L Monocytes % 5.3 Eosinophils % 1.3 Basophils % 0.1 Nucleated Red Blood Cells % 0.0 Neutrophils # 7.4 Lymphocytes # 0.3 L Monocytes # 0.4 Eosinophils # 0.1 Basophils # 0.0 Nucleated Red Blood Cells # 0.0 Sodium Level 143 Potassium Level 3.8 Chloride Level 103 Carbon Dioxide Level 30 Anion Gap 14 Blood Urea Nitrogen 30 H Creatinine 0.94 Glucose Level 182 Calcium Level 8.2 L Phosphorus Level 3.1 Magnesium Level 2.3 Total Bilirubin 1.4 H Direct Bilirubin 0.00 Indirect Bilirubin 1.4 H Aspartate Amino Transf (AST/SGOT) 19 Alanine Aminotransferase (ALT/SGPT) 60 Alkaline Phosphatase 67 Total Protein 5.0 L Albumin 2.4 L Globulin 2.60 Albumin/Globulin Ratio 0.92 Test 06/18/17 05:55 Bedside Glucose 168 Medications Medications Current Medications Ondansetron HCl (Zofran Inj) 4 mg Q6H PRN IV NAUSEA AND/OR VOMITING; Start at 03:00 Acetaminophen (Tylenol Tab) 650 mg Q6H PRN PO PAIN LEVEL 1-3 OR FEVER; Start at 03:00 Pantoprazole (Protonix Iv) 40 mg DAILY@06 IV Last administered on 06/18/17 06: 05; Admin Dose 40 MG; Start 06/14/17 at 06:00 Miscellaneous Information (Pending Santyl Order For Wound Care) This patient meza... PRN PRN XX WOUND CARE; Start 06/14/17 at 15:00 Collagenase (Santyl) 1 applic DAILY TOP Last administered on 06/17/17 09:28; Admin Dose 1 APPLIC; Start 06/15/17 at 09:00 Collagenase 1 applic 1 applic PRN PRN TOP WOUND CARE; Start 06/14/17 at 16:00 Propofol (Diprivan) 100 ml @ 2.55 mls/hr Q12H IV Last administered on 04:31; Admin Dose 4.08 MLS/HR; Start 06/15/17 at 04:30 Miscellaneous Information 1 ea NOTE XX ; Start 06/15/17 at 07:00 Glucose (Glutose) 15 gm Q15M PRN PO DECREASED GLUCOSE; Start 06/15/17 at 07:00 Glucose (Glutose) 22.5 gm Q15M PRN PO DECREASED GLUCOSE; Start 06/15/17 at 07:00 Glucagon (Glucagen) 1 mg Q15M PRN IM DECREASED GLUCOSE; Start 06/15/17 at 07:00 Glucose 15 gm 15 gm Q15M PRN BUCCAL DECREASED GLUCOSE; Start 06/15/17 at 07:00 Levetiracetam 100 ml @ 400 mls/hr Q12 IVPB Last administered on 06/17/17 23:11 ; Admin Dose 400 MLS/HR; Start 06/15/17 at 11:00 Piperacillin Sod/ Tazobactam Sod (Zosyn 3.375gm/ 100 ml (Pmx)) 100 ml @ 200 mls /hr Q6 IVPB Last administered on 06/18/17 06:05; Admin Dose 200 MLS/HR; Start 06/15/17 at 14:30 IV Flush 10 ml 10 ml PRN PRN IV IV PROTOCOL; Start 06/15/17 at 14:30 Norepinephrine/ Dextrose (Levophed/D5W) 500 ml @ 0 mls/hr TITRATE IV ; Start 06/16/17 at 16:00 Diagnostic Test (Pha) (Accu-Chek) 1 ea 02 XX ; Start 06/18/17 at 02:00 Diagnostic Test (Pha) (Accu-Chek) 1 ea 02 XX ; Start 06/18/17 at 02:00 Insulin Glargine (Lantus) 13 unit DAILY@20 SC Last administered on 06/17/17 23: 23; Admin Dose 13 UNIT; Start 06/17/17 at 20:00 Dextrose (D50w Syringe) 25 ml Q15M PRN IV DECREASED GLUCOSE; Start 06/17/17 at 11:00 Dextrose 50 ml 50 ml Q15M PRN IV DECREASED GLUCOSE; Start 06/17/17 at 11:00 Vancomycin HCl/ Sodium Chloride (Vancocin/NS) 250 ml @ 83.333 mls/ hr Q24H IVPB Last administered on 06/17/17 23:11; Admin Dose 83.333 MLS/HR; Start at 22:00 CLAUDE ROMERO Jun 18, 2017 07:43
[2017-06-18] MEDS: INSULIN ASPART [NOVOLOG] 3 ML PEN SC SCH ×4 (08:27→20:57)
--- NOTE | 2017-06-18 08:45 | PN ---
DATE: 06/18/2017 SUBJECTIVE DATA: The patient remains critically ill on full ventilatory support. No other events noted. No hemoptysis, hematemesis or hematochezia. OBJECTIVE DATA: VITAL SIGNS: Blood pressure is 135/43, respirations 17, pulse 677, temp 98.9. HEENT: Head is normocephalic. NECK: Supple. HEART: Regular rate. LUNGS: Diminished breath sounds at the base. ABDOMEN: Soft, nontender to palpation. No rebound or guarding. EXTREMITIES: Negative for clubbing, cyanosis, no edema. DERMATOLOGIC: Clean. No rashes. MUSCULOSKELETAL: No joint effusion. NEUROLOGIC: No change in exam. MEDICATIONS: Reviewed. LABORATORY AND DIAGNOSTIC DATA: Sodium 143, potassium 3.9, chloride 103, BUN 30, creatinine 0.94. White count is 8.3, hemoglobin 8.4, hematocrit 27.1, platelet count 93,000. The patient MRI of the brain shows findings of acute infarct of the right parietal lobe. Cultures have been reviewed. Imaging studies have been reviewed. ASSESSMENT AND PLAN: 1. Nonoliguric acute kidney injury on top of chronic kidney disease. Etiology secondary to hemodynamics. The patient's renal function has improved. At this point, continue current treatment plan and supportive care. Renally dose all medications. 2. Chronic kidney disease. The patient is currently in acute kidney injury as stated above. Continue current treatment plan. Continue disease factor modification. 3. Hypokalemia, resolved. 4. Anemia. Monitor H and H levels. 5. Hypernatremia, improved. Continue free water flushes. 6. Mineral bone disorder. Monitor calcium and phosphorus levels. 7. Severe sepsis secondary to pneumonia and urinary tract infection. Continue current antibiotic regimen. 8. Ventilatory-dependent respiratory failure. Vent settings reviewed. ABGs reviewed. Continue to monitor. Follow up with Pulmonary. 9. Acute cerebrovascular accident (CVA). The patient's MRI shows findings of acute stroke. Continue medical management. 10. Elevated troponin. Possible non-ST segment elevation myocardial infarction, type 2. Continue current treatment plan. Follow up with Cardiology. 11. History of right lung cancer, status post resection. Dictated By: David Brand DO /ke/alvarado /Document#: [id number]
--- NOTE | 2017-06-18 09:38 | PN ---
Date/Time of Note Date/Time of Note DATE: 06/18/17 TIME: 09:33 Assessment/Plan VTE Prophylaxis VTE Prophylaxis Intervention: contraindicated VTE Contraindication Reason: bleeding Lines/Catheters IV Catheter Type (from Nrs): PICC Line Central line still needed: Yes Urinary Cath still in place: Yes Reason Cath still needed: urinary retention Assessment/Plan Chief Complaint/Hosp Course ASSESSMENT AND PLAN: An 81-year-old male, who presents with sepsis secondary to urinary tract infection, pneumonia with whiteout of the right lung with a prior history of lung cancer, status post lobectomy, with significant possible upper gastrointestinal bleeding, status post code event, now acute stroke, intubated with possible new-onset seizure activities. 1. Sepsis. Likely source pneumonia and urinary tract urinary tract infection. Off pressor support 2 days. Slowly improving. - Continue broad-spectrum antibiotics. Tylenol p.r.n. pain and fevers. - Follow up culture results. Consider ID consult if does not improve. 2. Likely cardiac arrest -patient coded 72 hours ago. More alert today again. MRI of the brain shows acute stroke. - Follow up Cardiology recommendations. Heparin drip has been stopped. -Follow-up neurology recommendations. -Continue Keppra for seizure prophylaxis 3. Hemoptysis. patient has possible upper gastrointestinal bleed and hematemesis versus hemoptysis, unclear source. Again, patient has history of lung cancer, prior lobectomy. This could be the source? Status post PRBC transfusion 2 days ago. hemoglobin stable again, heparin drip has been stopped. - Continue to monitor for now. -Follow up GI consult recommendations -Avoid all anticoagulants. - Follow-up occult test. 4. Respiratory failure. intubated. The patient also has a prior history of lung cancer status post lobectomy in the past. -Follow Pulmonary recommendations. - We will continue antibiotics and mechanical ventilation. - Monitor oxygen levels. 5. Hyponatremia and hyperkalemia-resolved now -Continue to monitor levels of sodium and potassium as well. 6. Dmi-XV-vbfubaxey myocardial infarction. Again, appreciate Cardiology recommendations given the code event and the patient's possible upper gastrointestinal bleed versus hemoptysis. - Again we are holding heparin drip - Monitor heart rate.Troponin is still elevated -When patient is more stable, he may need may benefit from heart catheterization. 7. Type 2 diabetes. A1c 5.9 Continue sliding scale and Lantus 8. History of chronic obstructive pulmonary disease. - Carito p.rhali. 9. History of benign prostatic hypertrophy . - Continue to monitor for now. 10. Gastrointestinal prophylaxis - H2 blair. Critical care time spent today on patient, 45 minutes. Problems: Subjective 24 Hr Interval Summary Free Text/Dictation Patient seen by palliative care team this morning. A bit more alert today. MRI of the brain yesterday did demonstrate a focal acute/recent infarct in the right paramedian parietal lobe. Exam/Review of Systems Vital Signs Vitals Vital Signs Date Time Temp Pulse Resp B/P Pulse Ox O2 Delivery O2 Flow Rate FiO2 06/18/17 08:00 98.8 65 16 148/55 98 Mechanical Ventilator 06/18/17 05:20 40 06/14/17 12:30 15.0 Intake and Output 06/17/17 06/17/17 06/18/17 15:00 23:00 07:00 Intake Total 780 ml 160 ml 1410 ml Output Total 385 ml 190 ml 400 ml Balance 395 ml -30 ml 1010 ml Exam GENERAL: Patient is lying in bed,intubated, with movement, responding to some STEMI HEENT: Unable to fully assess today. NECK: Supple. No thyromegaly. LUNGS: Less distant breath sounds bilaterally. CARDIOVASCULAR: S1, S2 heard. No rubs or gallops. ABDOMEN: Soft, nontender, nondistended. Normal bowel sounds. No rebound or guarding. MUSCULOSKELETAL: No lower extremity edema bilaterally. NEUROLOGIC: Moving extremities occasionally Results Result Diagram: 06/18/17 0544 06/18/17 0544 Results 24 hrs Laboratory Tests Test 06/17/17 10:01 06/17/17 11:40 06/17/17 17:37 06/17/17 21:10 Bedside Glucose 103 119 111 Vancomycin Level Trough 13.8 Test 06/17/17 21:34 06/17/17 23:06 06/18/17 05:44 06/18/17 05:55 Bedside Glucose 159 162 168 White Blood Count 8.3 Red Blood Count 3.24 L Hemoglobin 8.4 L Hematocrit 27.1 L Mean Corpuscular Volume 83.6 Mean Corpuscular Hemoglobin 25.9 L Mean Corpuscular Hemoglobin Concent 31.0 L Red Cell Distribution Width 17.2 H Platelet Count 93 L Mean Platelet Volume 11.5 H Neutrophils % 88.9 H Lymphocytes % 3.9 L Monocytes % 5.3 Eosinophils % 1.3 Basophils % 0.1 Nucleated Red Blood Cells % 0.0 Neutrophils # 7.4 Lymphocytes # 0.3 L Monocytes # 0.4 Eosinophils # 0.1 Basophils # 0.0 Nucleated Red Blood Cells # 0.0 Sodium Level 143 Potassium Level 3.8 Chloride Level 103 Carbon Dioxide Level 30 Anion Gap 14 Blood Urea Nitrogen 30 H Creatinine 0.94 Glucose Level 182 Calcium Level 8.2 L Phosphorus Level 3.1 Magnesium Level 2.3 Total Bilirubin 1.4 H Direct Bilirubin 0.00 Indirect Bilirubin 1.4 H Aspartate Amino Transf (AST/SGOT) 19 Alanine Aminotransferase (ALT/SGPT) 60 Alkaline Phosphatase 67 Total Protein 5.0 L Albumin 2.4 L Globulin 2.60 Albumin/Globulin Ratio 0.92 Test 06/18/17 08:25 Bedside Glucose 178 Medications Medications Current Medications Ondansetron HCl (Zofran Inj) 4 mg Q6H PRN IV NAUSEA AND/OR VOMITING; Start at 03:00 Acetaminophen (Tylenol Tab) 650 mg Q6H PRN PO PAIN LEVEL 1-3 OR FEVER; Start at 03:00 Pantoprazole (Protonix Iv) 40 mg DAILY@06 IV Last administered on 06/18/17 06: 05; Admin Dose 40 MG; Start 06/14/17 at 06:00 Miscellaneous Information (Pending Santyl Order For Wound Care) This patient meza... PRN PRN XX WOUND CARE; Start 06/14/17 at 15:00 Collagenase (Santyl) 1 applic DAILY TOP Last administered on 06/17/17 09:28; Admin Dose 1 APPLIC; Start 06/15/17 at 09:00 Collagenase 1 applic 1 applic PRN PRN TOP WOUND CARE; Start 06/14/17 at 16:00 Propofol (Diprivan) 100 ml @ 2.55 mls/hr Q12H IV Last administered on 04:31; Admin Dose 4.08 MLS/HR; Start 06/15/17 at 04:30 Miscellaneous Information 1 ea NOTE XX ; Start 06/15/17 at 07:00 Glucose (Glutose) 15 gm Q15M PRN PO DECREASED GLUCOSE; Start 06/15/17 at 07:00 Glucose (Glutose) 22.5 gm Q15M PRN PO DECREASED GLUCOSE; Start 06/15/17 at 07:00 Glucagon (Glucagen) 1 mg Q15M PRN IM DECREASED GLUCOSE; Start 06/15/17 at 07:00 Glucose 15 gm 15 gm Q15M PRN BUCCAL DECREASED GLUCOSE; Start 06/15/17 at 07:00 Levetiracetam 100 ml @ 400 mls/hr Q12 IVPB Last administered on 06/17/17 23:11 ; Admin Dose 400 MLS/HR; Start 06/15/17 at 11:00 Piperacillin Sod/ Tazobactam Sod (Zosyn 3.375gm/ 100 ml (Pmx)) 100 ml @ 200 mls /hr Q6 IVPB Last administered on 06/18/17 06:05; Admin Dose 200 MLS/HR; Start 06/15/17 at 14:30 IV Flush 10 ml 10 ml PRN PRN IV IV PROTOCOL; Start 06/15/17 at 14:30 Norepinephrine/ Dextrose (Levophed/D5W) 500 ml @ 0 mls/hr TITRATE IV ; Start 06/16/17 at 16:00 Diagnostic Test (Pha) (Accu-Chek) 1 ea 02 XX ; Start 06/18/17 at 02:00 Diagnostic Test (Pha) (Accu-Chek) 1 ea 02 XX ; Start 06/18/17 at 02:00 Insulin Glargine (Lantus) 13 unit DAILY@20 SC Last administered on 06/17/17 23: 23; Admin Dose 13 UNIT; Start 06/17/17 at 20:00 Dextrose (D50w Syringe) 25 ml Q15M PRN IV DECREASED GLUCOSE; Start 06/17/17 at 11:00 Dextrose 50 ml 50 ml Q15M PRN IV DECREASED GLUCOSE; Start 06/17/17 at 11:00 Vancomycin HCl/ Sodium Chloride (Vancocin/NS) 250 ml @ 83.333 mls/ hr Q24H IVPB Last administered on 06/17/17 23:11; Admin Dose 83.333 MLS/HR; Start at 22:00 KONSTANTIN VÁZQUEZ Jun 18, 2017 09:38
[2017-06-18] MEDS: LEVETIRACETAM 1000 MG (PMX) 100 ML IVPB SCH ×2 (10:08→20:54)
[2017-06-18] MEDS: BALSAM PERU/CASTOR OIL 60 GM TUBE TOP SCH ×2 (10:08→20:53)
[2017-06-18] MEDS: COLLAGENASE 30 GM TUBE TOP SCH (10:09)
--- NOTE | 2017-06-18 11:27 | CONS ---
Date/Time of Note Date/Time of Note DATE: 06/18/17 TIME: 11:24 Consult Date/Type/Reason Admit Date/Time Jun 14, 2017 at 02:51 Initial Consult Date 06/15/17 Type of Consultation: Neurology Reason for Consultation encephalopathy Ordering Provider: KONSTANTIN VÁZQUEZ Subjective MRI shows focal acute recent right paramedian parietal lobe infarct old parietal infarct, small left frontal and parietal prior infarcts, old cerebellar infarcts Objective Vital Signs Date Time Temp Pulse Resp B/P Pulse Ox O2 Delivery O2 Flow Rate FiO2 06/18/17 08:00 98.8 65 16 148/55 98 Mechanical Ventilator 06/18/17 05:20 40 06/14/17 12:30 15.0 Intake and Output 06/17/17 06/17/17 06/18/17 15:00 23:00 07:00 Intake Total 780 ml 160 ml 1410 ml Output Total 385 ml 190 ml 400 ml Balance 395 ml -30 ml 1010 ml Exam intubated off sedation not following commands awake eyes open with gaze in both directions blinks to threat bilaterally CN: UZIEL, corneals and gag intact Motor: no w/d in UE, in LE triple flexion upgoing toes Results/Medications Result Diagram: 06/18/17 0544 06/18/17 0544 Results 24 hrs Laboratory Tests Test 06/17/17 11:40 06/17/17 17:37 06/17/17 21:10 06/17/17 21:34 Bedside Glucose 119 111 159 Vancomycin Level Trough 13.8 Test 06/17/17 23:06 06/18/17 05:44 06/18/17 05:55 06/18/17 08:25 Bedside Glucose 162 168 178 White Blood Count 8.3 Red Blood Count 3.24 L Hemoglobin 8.4 L Hematocrit 27.1 L Mean Corpuscular Volume 83.6 Mean Corpuscular Hemoglobin 25.9 L Mean Corpuscular Hemoglobin Concent 31.0 L Red Cell Distribution Width 17.2 H Platelet Count 93 L Mean Platelet Volume 11.5 H Neutrophils % 88.9 H Lymphocytes % 3.9 L Monocytes % 5.3 Eosinophils % 1.3 Basophils % 0.1 Nucleated Red Blood Cells % 0.0 Neutrophils # 7.4 Lymphocytes # 0.3 L Monocytes # 0.4 Eosinophils # 0.1 Basophils # 0.0 Nucleated Red Blood Cells # 0.0 Sodium Level 143 Potassium Level 3.8 Chloride Level 103 Carbon Dioxide Level 30 Anion Gap 14 Blood Urea Nitrogen 30 H Creatinine 0.94 Glucose Level 182 Calcium Level 8.2 L Phosphorus Level 3.1 Magnesium Level 2.3 Total Bilirubin 1.4 H Direct Bilirubin 0.00 Indirect Bilirubin 1.4 H Aspartate Amino Transf (AST/SGOT) 19 Alanine Aminotransferase (ALT/SGPT) 60 Alkaline Phosphatase 67 Total Protein 5.0 L Albumin 2.4 L Globulin 2.60 Albumin/Globulin Ratio 0.92 Medications Current Medications Ondansetron HCl (Zofran Inj) 4 mg Q6H PRN IV NAUSEA AND/OR VOMITING; Start at 03:00 Acetaminophen (Tylenol Tab) 650 mg Q6H PRN PO PAIN LEVEL 1-3 OR FEVER; Start at 03:00 Pantoprazole (Protonix Iv) 40 mg DAILY@06 IV Last administered on 06/18/17 06: 05; Admin Dose 40 MG; Start 06/14/17 at 06:00 Miscellaneous Information (Pending Santyl Order For Wound Care) This patient meza... PRN PRN XX WOUND CARE; Start 06/14/17 at 15:00 Collagenase (Santyl) 1 applic DAILY TOP Last administered on 06/18/17 10:09; Admin Dose 1 APPLIC; Start 06/15/17 at 09:00 Collagenase 1 applic 1 applic PRN PRN TOP WOUND CARE; Start 06/14/17 at 16:00 Propofol (Diprivan) 100 ml @ 2.55 mls/hr Q12H IV Last administered on 04:31; Admin Dose 4.08 MLS/HR; Start 06/15/17 at 04:30 Miscellaneous Information 1 ea NOTE XX ; Start 06/15/17 at 07:00 Glucose (Glutose) 15 gm Q15M PRN PO DECREASED GLUCOSE; Start 06/15/17 at 07:00 Glucose (Glutose) 22.5 gm Q15M PRN PO DECREASED GLUCOSE; Start 06/15/17 at 07:00 Glucagon (Glucagen) 1 mg Q15M PRN IM DECREASED GLUCOSE; Start 06/15/17 at 07:00 Glucose 15 gm 15 gm Q15M PRN BUCCAL DECREASED GLUCOSE; Start 06/15/17 at 07:00 Levetiracetam 100 ml @ 400 mls/hr Q12 IVPB Last administered on 06/18/17 10:08 ; Admin Dose 400 MLS/HR; Start 06/15/17 at 11:00 Piperacillin Sod/ Tazobactam Sod (Zosyn 3.375gm/ 100 ml (Pmx)) 100 ml @ 200 mls /hr Q6 IVPB Last administered on 06/18/17 06:05; Admin Dose 200 MLS/HR; Start 06/15/17 at 14:30 IV Flush 10 ml 10 ml PRN PRN IV IV PROTOCOL; Start 06/15/17 at 14:30 Norepinephrine/ Dextrose (Levophed/D5W) 500 ml @ 0 mls/hr TITRATE IV ; Start 06/16/17 at 16:00 Diagnostic Test (Pha) (Accu-Chek) 1 ea 02 XX ; Start 06/18/17 at 02:00 Diagnostic Test (Pha) (Accu-Chek) 1 ea 02 XX ; Start 06/18/17 at 02:00 Insulin Glargine (Lantus) 13 unit DAILY@20 SC Last administered on 06/17/17 23: 23; Admin Dose 13 UNIT; Start 06/17/17 at 20:00 Dextrose (D50w Syringe) 25 ml Q15M PRN IV DECREASED GLUCOSE; Start 06/17/17 at 11:00 Dextrose 50 ml 50 ml Q15M PRN IV DECREASED GLUCOSE; Start 06/17/17 at 11:00 Vancomycin HCl/ Sodium Chloride (Vancocin/NS) 250 ml @ 83.333 mls/ hr Q24H IVPB Last administered on 06/17/17 23:11; Admin Dose 83.333 MLS/HR; Start at 22:00 Assessment/Plan Chief Complaint/Hosp Course 81 yo male with recent admission for pneumonia requiring intubation readmitted after rehab stay with UTI/PNA, coded overnight with ROSC in 20 mins intubated on abx being managed in the ICU with post anoxic seizures noted. MRI Brain shows prior old right parietal and cerebellar infarcts with new right parietal infarct seen. possibly post cardiac arrest, possible paroxysmal afib. no anoxic injury seen Recommendations: continue Keppra 1 g BID EEG shows no seizures aspirin 81 mg if no contraindication, continue tele monitoring for afib confirm if patient is on home dose Parkinson's medications would recommend restarting continue to address GOC code status with family Problems: LAINE CONNORS MD Jun 18, 2017 11:27
--- NOTE | 2017-06-18 12:06 | CONS ---
Date/Time of Note Date/Time of Note DATE: 06/18/17 TIME: 12:04 Assessment/Plan Assessment/Plan Additional Assessment/Plan Cardiopulmonary arrest Shock Respiratory failure, vent dependent Preserved ejection fraction Sepsis Possible pneumonia with lung mass COPD on home oxygen Acute blood loss anemia -Patient currently off IV pressors. Blood pressure has remained stable past 24 hours and remains elevated. Would start low-dose TOSIN inhibitor as blood pressure and renal function permits. No beta-blair secondary to bradycardia. No aspirin secondary to recent bleeding requiring blood transfusion. Antibiotics as per primary team. Vent management as per our pulmonary colleagues. Consultation Date/Type/Reason Admit Date/Time Jun 14, 2017 at 02:51 Initial Consult Date 06/15/17 Type of Consultation: cv Referring Provider: KONSTANTIN VÁZQUEZ 24 HR Interval Summary Free Text/Dictation Patient seen and examined. Occasional sinus bradycardia noted on telemetry. Otherwise no new cardiac issues as per nursing staff Exam/Review of Systems Vital Signs Vitals Vital Signs Date Time Temp Pulse Resp B/P Pulse Ox O2 Delivery O2 Flow Rate FiO2 06/18/17 08:00 98.8 65 16 148/55 98 Mechanical Ventilator 06/18/17 05:20 40 06/14/17 12:30 15.0 Intake and Output 06/17/17 06/17/17 06/18/17 15:00 23:00 07:00 Intake Total 780 ml 160 ml 1410 ml Output Total 385 ml 190 ml 400 ml Balance 395 ml -30 ml 1010 ml Exam Awake, following basic commands, no apparent distress Head: normocephalic ENMT: intubated Respiratory: other (Coarse breath sounds bilaterally, no wheezing) Cardiovascular: other (S1-S2 heard), regular rate and rhythm Gastrointestinal: bowel sounds, non-tender, soft Extremities: edema Results Result Diagram: 06/18/17 0544 06/18/17 0544 Results 24 hrs Laboratory Tests Test 06/17/17 17:37 06/17/17 21:10 06/17/17 21:34 06/17/17 23:06 Bedside Glucose 111 159 162 Vancomycin Level Trough 13.8 Test 06/18/17 05:44 06/18/17 05:55 06/18/17 08:25 White Blood Count 8.3 Red Blood Count 3.24 L Hemoglobin 8.4 L Hematocrit 27.1 L Mean Corpuscular Volume 83.6 Mean Corpuscular Hemoglobin 25.9 L Mean Corpuscular Hemoglobin Concent 31.0 L Red Cell Distribution Width 17.2 H Platelet Count 93 L Mean Platelet Volume 11.5 H Neutrophils % 88.9 H Lymphocytes % 3.9 L Monocytes % 5.3 Eosinophils % 1.3 Basophils % 0.1 Nucleated Red Blood Cells % 0.0 Neutrophils # 7.4 Lymphocytes # 0.3 L Monocytes # 0.4 Eosinophils # 0.1 Basophils # 0.0 Nucleated Red Blood Cells # 0.0 Sodium Level 143 Potassium Level 3.8 Chloride Level 103 Carbon Dioxide Level 30 Anion Gap 14 Blood Urea Nitrogen 30 H Creatinine 0.94 Glucose Level 182 Calcium Level 8.2 L Phosphorus Level 3.1 Magnesium Level 2.3 Total Bilirubin 1.4 H Direct Bilirubin 0.00 Indirect Bilirubin 1.4 H Aspartate Amino Transf (AST/SGOT) 19 Alanine Aminotransferase (ALT/SGPT) 60 Alkaline Phosphatase 67 Total Protein 5.0 L Albumin 2.4 L Globulin 2.60 Albumin/Globulin Ratio 0.92 Bedside Glucose 168 178 Medications Medications Current Medications Ondansetron HCl (Zofran Inj) 4 mg Q6H PRN IV NAUSEA AND/OR VOMITING; Start at 03:00 Acetaminophen (Tylenol Tab) 650 mg Q6H PRN PO PAIN LEVEL 1-3 OR FEVER; Start at 03:00 Pantoprazole (Protonix Iv) 40 mg DAILY@06 IV Last administered on 06/18/17 06: 05; Admin Dose 40 MG; Start 06/14/17 at 06:00 Miscellaneous Information (Pending Santyl Order For Wound Care) This patient meza... PRN PRN XX WOUND CARE; Start 06/14/17 at 15:00 Collagenase (Santyl) 1 applic DAILY TOP Last administered on 06/18/17 10:09; Admin Dose 1 APPLIC; Start 06/15/17 at 09:00 Collagenase 1 applic 1 applic PRN PRN TOP WOUND CARE; Start 06/14/17 at 16:00 Propofol (Diprivan) 100 ml @ 2.55 mls/hr Q12H IV Last administered on 04:31; Admin Dose 4.08 MLS/HR; Start 06/15/17 at 04:30 Miscellaneous Information 1 ea NOTE XX ; Start 06/15/17 at 07:00 Glucose (Glutose) 15 gm Q15M PRN PO DECREASED GLUCOSE; Start 06/15/17 at 07:00 Glucose (Glutose) 22.5 gm Q15M PRN PO DECREASED GLUCOSE; Start 06/15/17 at 07:00 Glucagon (Glucagen) 1 mg Q15M PRN IM DECREASED GLUCOSE; Start 06/15/17 at 07:00 Glucose 15 gm 15 gm Q15M PRN BUCCAL DECREASED GLUCOSE; Start 06/15/17 at 07:00 Levetiracetam 100 ml @ 400 mls/hr Q12 IVPB Last administered on 06/18/17 10:08 ; Admin Dose 400 MLS/HR; Start 06/15/17 at 11:00 Piperacillin Sod/ Tazobactam Sod (Zosyn 3.375gm/ 100 ml (Pmx)) 100 ml @ 200 mls /hr Q6 IVPB Last administered on 06/18/17 06:05; Admin Dose 200 MLS/HR; Start 06/15/17 at 14:30 IV Flush 10 ml 10 ml PRN PRN IV IV PROTOCOL; Start 06/15/17 at 14:30 Norepinephrine/ Dextrose (Levophed/D5W) 500 ml @ 0 mls/hr TITRATE IV ; Start 06/16/17 at 16:00 Diagnostic Test (Pha) (Accu-Chek) 1 ea 02 XX ; Start 06/18/17 at 02:00 Diagnostic Test (Pha) (Accu-Chek) 1 ea 02 XX ; Start 06/18/17 at 02:00 Insulin Glargine (Lantus) 13 unit DAILY@20 SC Last administered on 06/17/17 23: 23; Admin Dose 13 UNIT; Start 06/17/17 at 20:00 Dextrose (D50w Syringe) 25 ml Q15M PRN IV DECREASED GLUCOSE; Start 06/17/17 at 11:00 Dextrose 50 ml 50 ml Q15M PRN IV DECREASED GLUCOSE; Start 06/17/17 at 11:00 Vancomycin HCl/ Sodium Chloride (Vancocin/NS) 250 ml @ 83.333 mls/ hr Q24H IVPB Last administered on 06/17/17 23:11; Admin Dose 83.333 MLS/HR; Start at 22:00 Augie Encarnacion DO Jun 18, 2017 12:06
--- NOTE | 2017-06-18 12:17 | CONS ---
Date/Time of Note Date/Time of Note DATE: 06/18/17 TIME: 12:14 Assessment/Plan Assessment/Plan Additional Assessment/Plan Ventilator setting; AC of 16, tidal volume 500, PEEP of 5, 40% FiO2. Assessment and recommendations; 1. Patient admitted with hypoxemia then developed respiratory failure requiring intubation. 2. Status post CPR. 3. Prior history of right lung cancer with right lung lobectomy. 4. Severe pneumonia involving right lung. Possibly some element of underlying mucous plugging. 5. History of Parkinson's disease. 6. Pancytopenia. Continue current treatment. Patient scheduled for bronchoscopy today. I did inform the patient's son over the phone and he consented for the procedure. Further recommendations to be made once bronchoscopy is done. Meanwhile continue current supportive care. Consultation Date/Type/Reason Admit Date/Time Jun 14, 2017 at 02:51 Initial Consult Date 06/14/17 Type of Consultation: Pulmonary/critical care Referring Provider: KONSTANTIN VÁZQUEZ 24 HR Interval Summary Free Text/Dictation Patient condition remains critical. Still requiring full ventilator support. Patient has been off sedation and is awake but not much responsive to any commands. Has remained hemodynamically stable. General exam; elderly male, awake, orally intubated, currently in no distress. Exam/Review of Systems Vital Signs Vitals Vital Signs Date Time Temp Pulse Resp B/P Pulse Ox O2 Delivery O2 Flow Rate FiO2 06/18/17 08:00 98.8 65 16 148/55 98 Mechanical Ventilator 06/18/17 05:20 40 06/14/17 12:30 15.0 Intake and Output 06/17/17 06/17/17 06/18/17 15:00 23:00 07:00 Intake Total 780 ml 160 ml 1410 ml Output Total 385 ml 190 ml 400 ml Balance 395 ml -30 ml 1010 ml Exam HEENT exam; supple neck, no JVD. No lymphadenopathy. Midline trachea. No thyromegaly. Patient is edentulous. Orally intubated. Chest exam; diminished breath sounds right lung. There is a well-healed right thoracotomy scar. Left lung is clear. S1-S2 audible, no murmurs. Regular rhythm. Abdomen exam; soft, no organomegaly. Bowel sounds audible. Extremity exam; no peripheral edema. No clubbing. Pulses 1+ bilaterally. NEWSP[employer]TER exam; patient is awake but does not follow any commands. Results Result Diagram: 06/18/17 0544 06/18/17 0544 Results 24 hrs Laboratory Tests Test 06/17/17 17:37 06/17/17 21:10 06/17/17 21:34 06/17/17 23:06 Bedside Glucose 111 159 162 Vancomycin Level Trough 13.8 Test 06/18/17 05:44 06/18/17 05:55 06/18/17 08:25 White Blood Count 8.3 Red Blood Count 3.24 L Hemoglobin 8.4 L Hematocrit 27.1 L Mean Corpuscular Volume 83.6 Mean Corpuscular Hemoglobin 25.9 L Mean Corpuscular Hemoglobin Concent 31.0 L Red Cell Distribution Width 17.2 H Platelet Count 93 L Mean Platelet Volume 11.5 H Neutrophils % 88.9 H Lymphocytes % 3.9 L Monocytes % 5.3 Eosinophils % 1.3 Basophils % 0.1 Nucleated Red Blood Cells % 0.0 Neutrophils # 7.4 Lymphocytes # 0.3 L Monocytes # 0.4 Eosinophils # 0.1 Basophils # 0.0 Nucleated Red Blood Cells # 0.0 Sodium Level 143 Potassium Level 3.8 Chloride Level 103 Carbon Dioxide Level 30 Anion Gap 14 Blood Urea Nitrogen 30 H Creatinine 0.94 Glucose Level 182 Calcium Level 8.2 L Phosphorus Level 3.1 Magnesium Level 2.3 Total Bilirubin 1.4 H Direct Bilirubin 0.00 Indirect Bilirubin 1.4 H Aspartate Amino Transf (AST/SGOT) 19 Alanine Aminotransferase (ALT/SGPT) 60 Alkaline Phosphatase 67 Total Protein 5.0 L Albumin 2.4 L Globulin 2.60 Albumin/Globulin Ratio 0.92 Bedside Glucose 168 178 Medications Medications Current Medications Ondansetron HCl (Zofran Inj) 4 mg Q6H PRN IV NAUSEA AND/OR VOMITING; Start at 03:00 Acetaminophen (Tylenol Tab) 650 mg Q6H PRN PO PAIN LEVEL 1-3 OR FEVER; Start at 03:00 Pantoprazole (Protonix Iv) 40 mg DAILY@06 IV Last administered on 06/18/17t 06: 05; Admin Dose 40 MG; Start 06/14/17 at 06:00 Miscellaneous Information (Pending Santyl Order For Wound Care) This patient meza... PRN PRN XX WOUND CARE; Start 06/14/17 at 15:00 Collagenase (Santyl) 1 applic DAILY TOP Last administered on 06/18/17 10:09; Admin Dose 1 APPLIC; Start 06/15/17 at 09:00 Collagenase 1 applic 1 applic PRN PRN TOP WOUND CARE; Start 06/14/17 at 16:00 Propofol (Diprivan) 100 ml @ 2.55 mls/hr Q12H IV Last administered on 04:31; Admin Dose 4.08 MLS/HR; Start 06/15/17 at 04:30 Miscellaneous Information 1 ea NOTE XX ; Start 06/15/17 at 07:00 Glucose (Glutose) 15 gm Q15M PRN PO DECREASED GLUCOSE; Start 06/15/17 at 07:00 Glucose (Glutose) 22.5 gm Q15M PRN PO DECREASED GLUCOSE; Start 06/15/17 at 07:00 Glucagon (Glucagen) 1 mg Q15M PRN IM DECREASED GLUCOSE; Start 06/15/17 at 07:00 Glucose 15 gm 15 gm Q15M PRN BUCCAL DECREASED GLUCOSE; Start 06/15/17 at 07:00 Levetiracetam 100 ml @ 400 mls/hr Q12 IVPB Last administered on 06/18/17 10:08 ; Admin Dose 400 MLS/HR; Start 06/15/17 at 11:00 Piperacillin Sod/ Tazobactam Sod (Zosyn 3.375gm/ 100 ml (Pmx)) 100 ml @ 200 mls /hr Q6 IVPB Last administered on 06/18/17 06:05; Admin Dose 200 MLS/HR; Start 06/15/17 at 14:30 IV Flush 10 ml 10 ml PRN PRN IV IV PROTOCOL; Start 06/15/17 at 14:30 Norepinephrine/ Dextrose (Levophed/D5W) 500 ml @ 0 mls/hr TITRATE IV ; Start 06/16/17 at 16:00 Diagnostic Test (Pha) (Accu-Chek) 1 ea 02 XX ; Start 06/18/17 at 02:00 Diagnostic Test (Pha) (Accu-Chek) 1 ea 02 XX ; Start 06/18/17 at 02:00 Insulin Glargine (Lantus) 13 unit DAILY@20 SC Last administered on 06/17/17 23: 23; Admin Dose 13 UNIT; Start 06/17/17 at 20:00 Dextrose (D50w Syringe) 25 ml Q15M PRN IV DECREASED GLUCOSE; Start 06/17/17 at 11:00 Dextrose 50 ml 50 ml Q15M PRN IV DECREASED GLUCOSE; Start 06/17/17 at 11:00 Vancomycin HCl/ Sodium Chloride (Vancocin/NS) 250 ml @ 83.333 mls/ hr Q24H IVPB Last administered on 06/17/17t 23:11; Admin Dose 83.333 MLS/HR; Start at 22:00 Lisinopril (Zestril) 2.5 mg BID GTB ; Start 06/18/17 at 12:30; Status STEPHANIE STAPLETON Jun 18, 2017 12:17
[2017-06-18] MEDS: LISINOPRIL 5 MG TAB GTB SCH ×2 (13:22→20:54)
--- NOTE | 2017-06-18 13:46 | PN ---
Date/Time of Note Date/Time of Note DATE: 06/18/17 TIME: 13:42 Assessment/Plan VTE Prophylaxis VTE Prophylaxis Intervention: contraindicated VTE Contraindication Reason: bleeding Lines/Catheters IV Catheter Type (from Nrsg): PICC Line Central line still needed: Yes Urinary Cath still in place: Yes Reason Cath still needed: urinary retention Assessment/Plan Assessment/Plan ssessment * Anemia Hemoptysis vs others * Acute respiratory failure * S/P cardiac arrest * Diabetes mellitus * Sepsis * Hx of lung cancer * History of lobectomy Plan * Transfuse per protocol * monitor hemoglobin and hematocrit daily * Pantoprazole 40 mg BID * Case discussed with Dr Zhang * further orders will depend on clinical coure Subjective 24 Hr Interval Summary Free Text/Dictation * Course reviewed with RN * Patient seen and examined * No untoward events overnight Exam/Review of Systems Vital Signs Vitals Vital Signs Date Time Temp Pulse Resp B/P Pulse Ox O2 Delivery O2 Flow Rate FiO2 06/18/17 13:09 55 16 100 40 06/18/17 13:00 150/57 Mechanical Ventilator 06/18/17 12:00 98.1 06/14/17 12:30 15.0 Intake and Output 06/17/17 06/17/17 06/18/17 15:00 23:00 07:00 Intake Total 780 ml 160 ml 1410 ml Output Total 385 ml 190 ml 400 ml Balance 395 ml -30 ml 1010 ml Exam Constitutional: frail ENMT: intubated Neck: non-tender, supple Respiratory: crackles/rales, diminished breath sounds Cardiovascular: nl pulses, regular rate and rhythm Gastrointestinal: nl liver, spleen, non-tender, soft, No bowel sounds Musculoskeletal: muscle weakness Extremities: pitting pedal edema Neurological: lethargic Skin: nl turgor, rash or lesions Lymph: nl lymph nodes Results Result Diagram: 06/18/17 0544 06/18/17 0544 Results 24 hrs Laboratory Tests Test 06/17/17 17:37 06/17/17 21:10 06/17/17 21:34 06/17/17 23:06 Bedside Glucose 111 159 162 Vancomycin Level Trough 13.8 Test 06/18/17 05:44 06/18/17 05:55 06/18/17 08:25 06/18/17 12:41 White Blood Count 8.3 Red Blood Count 3.24 L Hemoglobin 8.4 L Hematocrit 27.1 L Mean Corpuscular Volume 83.6 Mean Corpuscular Hemoglobin 25.9 L Mean Corpuscular Hemoglobin Concent 31.0 L Red Cell Distribution Width 17.2 H Platelet Count 93 L Mean Platelet Volume 11.5 H Neutrophils % 88.9 H Lymphocytes % 3.9 L Monocytes % 5.3 Eosinophils % 1.3 Basophils % 0.1 Nucleated Red Blood Cells % 0.0 Neutrophils # 7.4 Lymphocytes # 0.3 L Monocytes # 0.4 Eosinophils # 0.1 Basophils # 0.0 Nucleated Red Blood Cells # 0.0 Sodium Level 143 Potassium Level 3.8 Chloride Level 103 Carbon Dioxide Level 30 Anion Gap 14 Blood Urea Nitrogen 30 H Creatinine 0.94 Glucose Level 182 Calcium Level 8.2 L Phosphorus Level 3.1 Magnesium Level 2.3 Total Bilirubin 1.4 H Direct Bilirubin 0.00 Indirect Bilirubin 1.4 H Aspartate Amino Transf (AST/SGOT) 19 Alanine Aminotransferase (ALT/SGPT) 60 Alkaline Phosphatase 67 Total Protein 5.0 L Albumin 2.4 L Globulin 2.60 Albumin/Globulin Ratio 0.92 Bedside Glucose 168 178 185 Medications Medications Current Medications Ondansetron HCl (Zofran Inj) 4 mg Q6H PRN IV NAUSEA AND/OR VOMITING; Start at 03:00 Acetaminophen (Tylenol Tab) 650 mg Q6H PRN PO PAIN LEVEL 1-3 OR FEVER; Start at 03:00 Pantoprazole (Protonix Iv) 40 mg DAILY@06 IV Last administered on 06/18/17 06: 05; Admin Dose 40 MG; Start 06/14/17 at 06:00 Miscellaneous Information (Pending Santyl Order For Wound Care) This patient meza... PRN PRN XX WOUND CARE; Start 06/14/17 at 15:00 Collagenase (Santyl) 1 applic DAILY TOP Last administered on 06/18/17 10:09; Admin Dose 1 APPLIC; Start 06/15/17 at 09:00 Collagenase 1 applic 1 applic PRN PRN TOP WOUND CARE; Start 06/14/17 at 16:00 Propofol (Diprivan) 100 ml @ 2.55 mls/hr Q12H IV Last administered on 04:31; Admin Dose 4.08 MLS/HR; Start 06/15/17 at 04:30 Miscellaneous Information 1 ea NOTE XX ; Start 06/15/17 at 07:00 Glucose (Glutose) 15 gm Q15M PRN PO DECREASED GLUCOSE; Start 06/15/17 at 07:00 Glucose (Glutose) 22.5 gm Q15M PRN PO DECREASED GLUCOSE; Start 06/15/17 at 07:00 Glucagon (Glucagen) 1 mg Q15M PRN IM DECREASED GLUCOSE; Start 06/15/17 at 07:00 Glucose 15 gm 15 gm Q15M PRN BUCCAL DECREASED GLUCOSE; Start 06/15/17 at 07:00 Levetiracetam 100 ml @ 400 mls/hr Q12 IVPB Last administered on 06/18/17 10:08 ; Admin Dose 400 MLS/HR; Start 06/15/17 at 11:00 Piperacillin Sod/ Tazobactam Sod (Zosyn 3.375gm/ 100 ml (Pmx)) 100 ml @ 200 mls /hr Q6 IVPB Last administered on 06/18/17 12:42; Admin Dose 200 MLS/HR; Start 06/15/17 at 14:30 IV Flush 10 ml 10 ml PRN PRN IV IV PROTOCOL; Start 06/15/17 at 14:30 Norepinephrine/ Dextrose (Levophed/D5W) 500 ml @ 0 mls/hr TITRATE IV ; Start 06/16/17 at 16:00 Diagnostic Test (Pha) (Accu-Chek) 1 ea 02 XX ; Start 06/18/17 at 02:00 Diagnostic Test (Pha) (Accu-Chek) 1 ea 02 XX ; Start 06/18/17 at 02:00 Insulin Glargine (Lantus) 13 unit DAILY@20 SC Last administered on 06/17/17 23: 23; Admin Dose 13 UNIT; Start 06/17/17 at 20:00 Dextrose (D50w Syringe) 25 ml Q15M PRN IV DECREASED GLUCOSE; Start 06/17/17 at 11:00 Dextrose 50 ml 50 ml Q15M PRN IV DECREASED GLUCOSE; Start 06/17/17 at 11:00 Vancomycin HCl/ Sodium Chloride (Vancocin/NS) 250 ml @ 83.333 mls/ hr Q24H IVPB Last administered on 06/17/17 23:11; Admin Dose 83.333 MLS/HR; Start at 22:00 Lisinopril (Zestril) 2.5 mg BID GTB Last administered on 06/18/17t 13:22; Admin Dose 2.5 MG; Start 06/18/17 at 12:30 RAJEEV DYER NP Jun 18, 2017 13:46
[2017-06-18] MEDS ORDERED: ACETYLCYSTEINE 600 MG CAP PO ONE (15:00)
[2017-06-18] MEDS ORDERED: LIDOCAINE 1% (MPF) 30 ML INJ INJ PRN (15:00)
[2017-06-18] MEDS ORDERED: LIDOCAINE 1% (MDV) 20 ML INJ ONE (15:03)
[2017-06-18] MEDS ORDERED: MIDAZOLAM 1 MG/ML 2 ML INJ ONE ×2 (15:06→15:10)
--- NOTE | 2017-06-18 15:20 | OPR ---
Date/Time of Note Date/Time of Note DATE: 06/18/17 TIME: 15:18 Operative Report Preoperative Diagnosis Respiratory failure patient admitted with severe right sided pneumonia with prior history of lung cancer. Bronchoscopy to rule out endobronchial lesion versus mucous plugging. Informed consent was obtained earlier from the patient's brother over the phone. Patient already was on mechanical ventilation. Patient was sedated with 2 mg Versed intravenous push, topical anesthesia was achieved by instilling 5 mL of 1% lidocaine through the endotracheal tube. Scope was introduced through the endotracheal tube. Distal trachea was normal, john was sharp and well defined. The scope was introduced into the right mainstem bronchus with evaluation of right upper lobe which revealed a well-healed stump this was followed by evaluation of the bronchus intermedius followed by evaluation of lower lobes which were essentially free of any mucous plugging or any endobronchial pathology except for mild inflammation. Patient however did have O2 desaturation episodes going to 90% precluding left lung evaluation. The scope was then withdrawn. The patient maintained stable vital signs as well as O2 saturation. Lowest saturation recorded was 90%. Start time was 3:05 PM finish time was 3:10 PM STEPHANIE PATTERSON Jun 18, 2017 15:20
[2017-06-18] MEDS ORDERED: MIDAZOLAM 1 MG/ML 2 ML INJ IV ONE ×2 (15:30)
--- NOTE | 2017-06-18 16:45 | PDOCDIS ---
Discharge Instructions CONDITION Patient Condition: Stable HOME CARE INSTRUCTIONS: Special Diet: tube feeding KONSTANTIN VÁZQUEZ Jun 18, 2017 16:45
--- NOTE | 2017-06-18 16:59 | DS ---
Date/Time of Note Date/Time of Note DATE: 06/18/17 TIME: 16:51 Discharge Summary Admission/Discharge Info Admit Date/Time Jun 14, 2017 at 02:51 Discharge Date/Time Discharge Diagnosis 1. Sepsis. Likely source pneumonia and urinary tract urinary tract infection. Off pressor support 2 days. 2. Likely cardiac arrest -patient coded 72 hours ago. More alert today again. MRI of the brain shows acute stroke. 3. Hemoptysis. patient has possible upper gastrointestinal bleed and hematemesis versus hemoptysis, unclear source. Again, patient has history of lung cancer, prior lobectomy. 4. Respiratory failure. intubated. The patient also has a prior history of lung cancer status post lobectomy in the past. 5. Hyponatremia and hyperkalemia-resolved now 6. 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 Again, appreciate Cardiology recommendations given the code event and the patient's possible upper gastrointestinal bleed versus hemoptysis. 7. Type 2 diabetes. A1c 5.9 Continue sliding scale and Lantus 8. History of chronic obstructive pulmonary disease. - Carito p.r.n. 9. History of benign prostatic hypertrophy . Patient Condition: Stable Hx of Present Illness l Hospital Course Patient is a 81-year-old male who presents with shortness of breath The patient came from a convalescent home. He had low oxygen saturations. He was brought in by ambulance. He was put on a nonrebreather by paramedics. He was hot to the touch. He does have recent pneumonia with sepsis. He is a [facility] patient. Patient was admitted to intensive care unit seen by multiple specialists during this hospital stay including cardiology team, pulmonary, neurology, palliative care. He initially was treated for sepsis and septic shock secondary to pneumonia and UTI, started on antibiotics. He was also found with elevated troponin level initially started on heparin drip. During the hospital stay he also suffered a cardiac arrest event, had return of spontaneous circulation. His MRI of the brain subsequently showed acute stroke in the right parietal region. In addition to his sepsis from pneumonia and UTI , these are the likely triggers of his cardiopulmonary arrest. He was monitored by cardiology team, and did have an upper GI bleed event, when the heparin drip was stopped. He was evaluated by GI team and medically managed for that. He did have to receive 2 units of PRBC transfusion but had no further bleeding events after this occurred and the hemoglobin remained stable. He did have what was thought to be a brief episode of seizure activity, which resolved after being started on Keppra IV. His EEG was actually negative for any seizure activity, he was eventually taken off pressor support as a septic shock was resolving. He also had a bronchoscopy on June 18, 2017 as well by pulmonary team, to rule out endobronchial lesion versus mucous plugging. There was no mucous plugging found, however procedure had to be stopped because of some desaturation episodes. Presently vital signs are stable. Patient has been more responsive and following some simple commands, although still intubated. He will be transferred to his insured hospital as he is more medically stable at this time. He will need to be continued in the ICU for now. Home Meds Reported Medications Terazosin Hcl* (Terazosin Hcl*) 10 Mg Capsule, 10 MG PO HS, CAP 06/14/17 Isosorbide Mononitrate* (Isosorbide Mononitrate*) 30 Mg Tab.er.24h, 30 MG PO DAILY, TAB 06/14/17 Glipizide* (Glipizide*) 5 Mg Tablet, 5 MG PO BID, TAB 06/14/17 Potassium Chloride* (Potassium Chloride*) 8 Meq Capsule.er, 16 MEQ PO DAILY, CAP 06/14/17 Atenolol* (Atenolol*) 50 Mg Tablet, 50 MG PO DAILY, #30 TAB 06/14/17 Furosemide* (Furosemide*) 40 Mg Tablet, 40 MG PO DAILY, TAB IF WEIGHT INCREASE BY 2 LBS TAKE AN ADDITONAL DOSE. ONCE WEIGHT HAS BEEN RESUME CONTINUE RX DAILY 06/14/17 Atorvastatin* (Atorvastatin*) 40 Mg Tablet, 40 MG PO QHS, #30 TAB 06/14/17 Lisinopril* (Lisinopril*) 40 Mg Tablet, 40 MG PO DAILY, #30 TAB 06/14/17 Carbidopa/Levodopa (Carbidopa-Levo ER 25-100 Tab) 1 Each Tablet.er, 1 EACH PO QID, TAB 06/14/17 Hydralazine Hcl* (Hydralazine Hcl*) 25 Mg Tab, 25 MG PO BID, #120 TAB 06/14/17 Mometasone-Formoterol (Dulera) 200-5 Mcg/Inh - 13 Gm Hfa.aer.ad, 2 PUFFS INHALATION BID, #1 INHALER 06/14/17 Primary Care Provider Not On Staff Doctor Time spent on discharge: > 30 minutes Pending Labs Laboratory Tests Test 06/17/17 17:37 06/17/17 21:10 06/17/17 21:34 06/17/17 23:06 Bedside Glucose 111mg/dL (70-220) 159mg/dL (70-220) 162mg/dL (70-220) Vancomycin Level Trough 13.8ug/ml (10.0-20.0) Test 06/18/17 05:44 06/18/17 05:55 06/18/17 08:25 06/18/17 12:41 White Blood Count 8.310^3/ul (4.8-10.8) Red Blood Count 3.2410^6/ul (4.70-6.10) Hemoglobin 8.4g/dl (14.0-18.0) Hematocrit 27.1% (42.0-52.0) Mean Corpuscular Volume 83.6fl (82.0-101.0) Mean Corpuscular Hemoglobin 25.9pg (29.0-33.0) Mean Corpuscular Hemoglobin Concent 31.0g/dl (32.0-37.0) Red Cell Distribution Width 17.2% (11.5-14.5) Platelet Count 9310^3/UL (140-415) Mean Platelet Volume 11.5fl (7.4-10.4) Neutrophils % 88.9% (39.0-77.0) Lymphocytes % 3.9% (15.0-51.0) Monocytes % 5.3% (0.0-11.0) Eosinophils % 1.3% (0.0-7.0) Basophils % 0.1% (0.0-2.0) Nucleated Red Blood Cells % 0.0/100WBC (0.0-0.0) Neutrophils # 7.410^3/ul (1.6-7.5) Lymphocytes # 0.310^3/ul (0.8-2.9) Monocytes # 0.410^3/ul (0.3-0.9) Eosinophils # 0.110^3/ul (0.0-0.5) Basophils # 0.010^3/ul (0.0-0.1) Nucleated Red Blood Cells # 0.010^3/ul (0.0-0.0) Sodium Level 143mmol/L (135-144) Potassium Level 3.8mmol/L (3.5-5.1) Chloride Level 103mmol/L (97-110) Carbon Dioxide Level 30mmol/L (21-31) Anion Gap 14 (8-16) Blood Urea Nitrogen 30mg/dl (7-20) Creatinine 0.94mg/dl (0.61-1.24) Glucose Level 182mg/dl (70-220) Calcium Level 8.2mg/dl (8.4-10.2) Phosphorus Level 3.1mg/dl (2.5-4.9) Magnesium Level 2.3mg/dl (1.7-2.5) Total Bilirubin 1.4mg/dl (0.2-1.3) Direct Bilirubin 0.00mg/dl (0.00-0.20) Indirect Bilirubin 1.4mg/dl (0-1.1) Aspartate Amino Transf (AST/SGOT) 19IU/L (15-46) Alanine Aminotransferase (ALT/SGPT) 60IU/L (13-69) Alkaline Phosphatase 67IU/L (42-121) Total Protein 5.0g/dl (6.1-8.1) Albumin 2.4g/dl (3.3-4.9) Globulin 2.60g/dl (1.3-3.2) Albumin/Globulin Ratio 0.92 Bedside Glucose 168mg/dL (70-220) 178mg/dL (70-220) 185mg/dL (70-220) KONSTANTIN VÁZQUEZ Jun 18, 2017 16:59
[2017-06-18] MEDS: INSULIN GLARGINE [LANtus] 3 ML PEN SC SCH (21:11)
== END 2017-06-18 21:00 | disposition short-term general hospital (02) | DRG 871 ==
LOC: E/R 01:00 → ICU 02:51
PROVIDERS: ADMIT Family Medicine; ATTEND Family Medicine
PROC: 5A1945Z Respiratory Ventilation, 24-96 Consecutive Hours (ICD-10-PCS; principal; 2017-06-15)
PROC: 0BH17EZ Insertion of Endotracheal Airway into Trachea, Via Natural or Artificial Opening (ICD-10-PCS; 2017-06-15)
PROC: 02HV33Z Insertion of Infusion Device into Superior Vena Cava, Percutaneous Approach (ICD-10-PCS; 2017-06-15)
PROC: 30233N1 Transfusion of Nonautologous Red Blood Cells into Peripheral Vein, Percutaneous Approach (ICD-10-PCS; 2017-06-16)
PROC: 0BJ08ZZ Inspection of Tracheobronchial Tree, Via Natural or Artificial Opening Endoscopic (ICD-10-PCS; 2017-06-18)
DX: A41.9 Sepsis, unspecified organism (principal); J96.01 Acute respiratory failure with hypoxia; I21.4 Non-ST elevation (NSTEMI) myocardial infarction; I46.9 Cardiac arrest, cause unspecified; G92 Toxic encephalopathy; J18.9 Pneumonia, unspecified organism; N17.9 Acute kidney failure, unspecified; E87.0 Hyperosmolality and hypernatremia; N39.0 Urinary tract infection, site not specified; R04.2 Hemoptysis; D62 Acute posthemorrhagic anemia; R65.20 Severe sepsis without septic shock; N13.9 Obstructive and reflux uropathy, unspecified; G20 Parkinson's disease; J44.9 Chronic obstructive pulmonary disease, unspecified; E11.9 Type 2 diabetes mellitus without complications; I12.9 Hypertensive chronic kidney disease with stage 1 through stage 4 chronic kidney disease, or unspecified chronic kidney disease; N18.9 Chronic kidney disease, unspecified; Z85.118 Personal history of other malignant neoplasm of bronchus and lung; Z87.891 Personal history of nicotine dependence; E87.5 Hyperkalemia; D64.9 Anemia, unspecified; R56.9 Unspecified convulsions
CPT/HCPCS: 31500; 36415; 36430; 36569; 36600; 70551; 71010; 71250; 76775; 76937; 80048; 80053; 80202; 81001; 81003; 82043; 82550; 82553; 82803; 82962; 83036; 83605; 83615; 83735; 84100; 84155; 84300; 84484; 85025; 85610; 85730; 86850; 86900; 86901; 86920; 87040; 87045; 87081; 87086; 89220; 92950; 93005; 93306; 94002; 94003; 94660; 94664; 94770; 95819; 96374; 96375; 96376; C9113; J0282; J0692; J1644; J1815; J1953; J1956; J2250; J2543; J3243; J3370; J7030; J7040; J7050; J7060; P9016

== ENCOUNTER 2018-11-04 16:27 | Inpatient (IN) | END 2018-11-07 18:10 | disposition other institution (70) | DRG 871 ==